=== PATIENT | female | born 1930 | race Caucasian/White ===

== ENCOUNTER 2017-10-15 08:58 | Outpatient (CLI) | payer MEDICARE, BC ==
--- NOTE | 2017-10-15 12:10 | PRG ---
DATE OF SERVICE: 10/15/2017 CHIEF COMPLAINT: Sores on the left third and fourth toes. HISTORY OF PRESENT ILLNESS: An 87-year-old female presents today stating that she has some ulcers on her left third and fourth toes. This has been present for over 8 months. She has had multiple stanislaw tment interventions for this including home health wound care and visit with another skirt panel assembler kaity flores a tenotomy of the left third toe. She states she still has some tenderness to the area and rece ntly has just been treating by placing Telfa pad between the toes. PAST MEDICAL HISTORY/PAST SURGICAL HISTORY/SOCIAL HISTORY/FAMILY HISTORY: [facility] It was reviewed and deemed up to date. REVIEW OF SYSTEMS: CONSTITUTIONAL: Denies nausea, vomiting, fevers or chills. NEUROLOGICAL: Relates normal sensation to bilateral feet. ENDOCRINOLOGIC: Denies diabetes, excess thirst or excess urination. INTEGUMENTARY: Relating sorene ss to the left third and fourth toes. CARDIOVASCULAR: Relates swelling to bilateral lower extremities which comes and goes. PHYSICAL EXAMINATION: VITAL SIGNS: Temperature 97.4, pulse 61, respirations 18, blood pressure 157/67. VASCULAR: Dorsalis pedis and posterior tibial pulses are faint, but palpable. She has varicosities to bilateral lower extremities and some +1 pitting edema to bilateral lower extremities. Capillary r efill time to the toes is immediate x10. NEUROLOGICAL: Light touch protective sensation threshold is intact with cursory exam. DERMATOLOGICAL EXAM: Evaluated the areas of stated previous ulceration. There was a small scab over the area which was removed and noted that there was fresh epithelium and no full thickness wounds we re present. No erythema, edema, or warmth present to the toes. ASSESSMENT: 1. 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 2. Venous insufficiency. PLAN: 1. I discussed with the patient her condition and treatment options. I believe at this time that th e wounds are healed and that she does not require any wound care intervention, although I would recom mend a silicone toe spacers for between her toes. We discussed where to find these and different opt ions and use. I believe this will help with the discomfort she is having in this area. Also, recomm end that she start wearing her compression stockings again for her swelling, but paying close attenti on to keep the compression off of the toes. 2. We have also referred her for vein evaluation with her plug cutter to see if there is anything t hat can be done for that. 3. She is to follow up with me should she develop any further problems or concerns.
== END 2017-10-15 08:59 | disposition home or self-care (01) ==
LOC: WCC 08:58
PROVIDERS: ATTEND Podiatrist Foot & Ankle Surgery
DX: L97.529 Non-pressure chronic ulcer of other part of left foot with unspecified severity (principal); I87.2 Venous insufficiency (chronic) (peripheral)
CPT/HCPCS: 97139; 97602; G0463; 99203

== ENCOUNTER 2017-12-24 09:48 | Outpatient (CLI) | payer MEDICARE, BC ==
--- NOTE | 2017-12-24 13:52 | PRG ---
DATE OF SERVICE: 12/24/2017 SUBJECTIVE: An 87-year-old female returns to clinic today for an ulcer on her left fourth toe, I hav e seen her previously for ulcers on her left third and fourth toes, which had healed at that time. S he says this one started back up just recently made over the last 2-3 weeks. She says she has proble ms with blistering and scabbing this area. She has tried using silicone toe spacers, but determined that she was allergic to silicone and has not sounds anything else to help reduce the pressure on the se areas. Denies nausea, vomiting, fevers or chills. OBJECTIVE: Superficial ulceration limited to breakdown of the skin of the left fourth toe medial PIP J area measures 0.2 x 0.2 cm, 100% granular wound base. This area does abut up against the third toe . ASSESSMENT: Non-pressure chronic ulceration limited to breakdown of the skin left fourth toe. PLAN: 1. We discussed keeping the wound covered with a dry sterile dressing until it heals. 2. We discussed other options for removing the pressure, she is going to start by trying an Aperture corn pad without any corn removal medication on it to take pressure off the area and keep the toe se parated. I will have her follow up in 2 weeks for reevaluation and determine if any change in treatm ent as necessary.
== END 2017-12-24 09:49 | disposition home or self-care (01) ==
LOC: WCC 09:48
PROVIDERS: ATTEND Podiatrist Foot & Ankle Surgery
DX: L97.521 Non-pressure chronic ulcer of other part of left foot limited to breakdown of skin (principal)

== ENCOUNTER 2018-01-07 09:47 | Outpatient (CLI) | payer MEDICARE, BC ==
[~2018-01-07 09:47] MED LIST: Sodium Chloride 3% (15 ML) NEB ONE
--- NOTE | 2018-01-07 12:06 | PRG ---
DATE OF SERVICE: 01/07/2018 SUBJECTIVE: An 87-year-old female, who returns today for followup of left fourth toe ulceration. Niko michele has done well since last visit. She has been using a corn aperture pad on the wound with no ot her dressing on the area. This is about the same. She says some days it is more red than others. T eulalio, it is a little bit more red, but yesterday it looked like a normal toe she says. She denies an y nausea, vomiting, fevers, or chills. PHYSICAL EXAMINATION: Ulceration to the left medial PIPJ of the left fourth toe, ulcer measures 0.2 x 0.2 cm x 0.1 cm, 100% granular wound base, toe is erythematous, but does not extend onto the foot, no ascending lymphangitis, no warmth. ASSESSMENT: Non-pressure chronic ulceration to the left fourth toe. PLAN: I am going to start with an Aquacel Ag gauze and tape dressing instead of the corn pads and se e how this responds over the next couple of weeks. The patient is to monitor for signs of infection and contact us immediately if there is worsening infection. She will follow up with me in 2 weeks.
== END 2018-01-07 09:48 | disposition home or self-care (01) ==
LOC: WCC 09:47
PROVIDERS: ATTEND Podiatrist Foot & Ankle Surgery
DX: L97.529 Non-pressure chronic ulcer of other part of left foot with unspecified severity (principal)

== ENCOUNTER 2018-01-21 10:22 | Outpatient (CLI) | payer MEDICARE, BC ==
[~2018-01-21 10:22] MED LIST changes: +Sodium Chloride 0.9% 15 ML NEB ONE; -Sodium Chloride 3% (15 ML) NEB ONE
--- NOTE | 2018-01-21 11:23 | PRG ---
DATE OF SERVICE: 01/21/2018 SUBJECTIVE: This is an 87-year-old female, who returns today for followup left fourth toe ulceration . States that home health has been changing the dressing 3 times a week with Aquacel AG, Telfa, and tape. Denies any problems since last visit. PHYSICAL EXAMINATION: Ulcer to the left fourth toe, measures 0.6 cm x 0.7 cm x 0.1 cm. There is 80% granulation tissue, 20% at the feet, new epithelium. Periwound has some slight maceration. No eryt jan, edema, or warmth. ASSESSMENT: Non-pressure chronic ulceration to the left fourth toe. PLAN: 1. Full thickness debridement of subcutaneous tissue layer removing all nonviable tissue from the wo und base down to bleeding granular wound base. The patient tolerated the procedure well. 2. We are going to switch her to Promogran dressing changes. We will continue with home health horowitz ging the dressing 3 times a week and one time a week here in the office. She will follow up with me in 1 week for this or sooner should she have any problems before that time.
== END 2018-01-21 10:23 | disposition home or self-care (01) ==
LOC: WCC 10:22
PROVIDERS: ATTEND Podiatrist Foot & Ankle Surgery
DX: L97.529 Non-pressure chronic ulcer of other part of left foot with unspecified severity (principal)
CPT/HCPCS: 11042; A4218

== ENCOUNTER 2018-01-28 11:31 | Outpatient (CLI) | payer MEDICARE, BC ==
--- NOTE | 2018-01-28 11:41 | PRG ---
DATE OF SERVICE: 01/28/2018 SUBJECTIVE: An 87-year-old female who returns today for followup of ulceration to the left fourth to e. She has been having home health change dressing 3 times a week, has had no issues with the dressi ng changes. She stated she experienced a little pain in the toe last night. Denies nausea, vomiting, fevers or chills. PHYSICAL EXAMINATION: Ulceration, left fourth toe has mostly epithelialized, the medial epithelial layer measures 0.3 cm x 0.2. There is a pinpoint area centrally located of granular tissue where the wound is still open. No periwound erythema, edema, or warmth, no drainage. Slight tenderness to li ght touch. ASSESSMENT: Non-pressure chronic ulceration to the left fourth toe, improving. PLAN: 1. Full thickness debridement of the pinpoint area of the ulceration, removing biofilm from the tiss ue layer. The patient tolerated the procedure well. 2. Going to continue with Promogran dressing changes 3 times a week. 3. The patient will follow up with me in 2 weeks.
== END 2018-01-28 11:32 | disposition home or self-care (01) ==
LOC: WCC 11:31
PROVIDERS: ATTEND Podiatrist Foot & Ankle Surgery
DX: L97.529 Non-pressure chronic ulcer of other part of left foot with unspecified severity (principal)

== ENCOUNTER 2018-01-31 11:34 | Inpatient (IN) | payer MEDICARE, BC ==
--- NOTE | 2018-01-31 13:21 | RAD ---
TWO VIEWS OF RIGHT ANKLE: DATE: 01/31/18. TIME: 12:23 p.m. HISTORY: Fall, trauma, pain. FINDINGS: The talus is dislocated posteriorly with respect to the distal tibia. Comminuted and displaced fract ures of the medial malleolus, posterior malleolus, and probably the lateral malleolus noted. Post-re duction imaging is required for further assessment. IMPRESSION: Findings suggesting a trimalleolar fracture dislocation of the right ankle. Followup post-reduction imaging is advised. POS: [facility]
[2018-01-31 13:44] LABS: Hemoglobin 12.5 g/dL (12.0-16.0); Mean Corpuscular HGB CONC 32.9 g/dL (32.0-36.0); Mean Corpuscular Hemoglobin 32.1 pg (27.0-31.0); Mean Corpuscular Volume 97.5 fl (81.0-99.0); Mean Platelet Volume 7.5 fL (7.4-10.4); Platelet Count 178 thou/uL (130-400); RBC Distribution Width 11.9 % (11.5-14.5); Red Blood Cell (RBC) Count 3.91 mill/uL (4.20-5.40)
[2018-01-31] MEDS ORDERED: Fentanyl 100 MCG/2 ML VIAL ONE (13:53)
--- NOTE | 2018-01-31 13:55 | RAD ---
PORTABLE CHEST ONE VIEW: Date: 01-26-18 Time: 1:36 p.m. History: Pre-operative evaluation. FINDINGS: The heart size is normal. The aorta is tortuous. No areas of consolidation, pneumothorax or pleural e ffusions are seen. IMPRESSION: No acute process. POS: [facility]
[2018-01-31 13:56] LABS: ALT (SGPT) 13 U/L (8-55); AST (SGOT) 16 U/L (5-34); Albumin 3.8 g/dL (3.4-4.8); Alkaline Phosphatase 91 U/L (40-150); Anion Gap 13 mmol/L (10-20); BUN (Urea Nitrogen) 46 mg/dL (9.8-20.1); Bilirubin, Total 0.7 mg/dL (0.2-1.2); Calc. Creatinine Clearance 0 mL/min (70-130); Calcium 9.6 mg/dL (7.8-10.44); Carbon Dioxide 23 mmol/L (23-31); Chloride 108 mmol/L (98-107); Estimated GFR-MDRD 28; Globulin 2.5 g/dL (2.4-3.5); Glucose 126 mg/dL (83-110); Potassium 5.2 mmol/L (3.5-5.1); Protein, Total 6.3 g/dL (6.0-8.3); Sodium 139 mmol/L (136-145)
[2018-01-31 13:58] LABS: Band 20 % (5-11); Lymphocytes 7 % (21-51); MDiff Complete? YES; Metamyelocyte 1 % (0-0); Monocytes 12 % (0-10); Neutrophil 59 % (42-75); PLT Morphology Comment Appears Adequate; RBC Morphology Normal; Vacuoles SLIGHT
[2018-01-31 14:21] LABS: Bilirubin Negative (Negative); Blood, Urine Large (Negative); Clarity TURBID (Clear); Glucose, Urine (Dipstick) Negative (Negative); Leukocyte Large (Negative); Nitrite Positive (Negative); Protein, Urine (Dipstick) 100 mg/dL (Neg-Trace); Specific Gravity, Urine 1.017 (1.002-1.036)
[2018-01-31 14:26] LABS: Bacteria/HPF 4+ HPF (None Seen); Hyaline Casts/LPF 0-3 HYALINE CAST LPF (0-3 Hyaline); Pathc Cast-AUWi Flag 0.17 (0-2.49); Squamous Epithelial None Seen HPF (0-3); Yeast-AUWi Flag 23.4 (0-25.0)
--- NOTE | 2018-01-31 14:49 | RAD ---
RIGHT ANKLE 2 VIEWS: HISTORY: Right ankle injury. Post reduction. FINDINGS: Near-complete reduction of the lateral talar dislocation. Mild eversion persists. There is 1.1 cm p osterior displacement of the posterior malleolar fracture. A 1.0 cm gap of the lateral malleolar fra cture. A 0.6 cm gap of the medial malleolar fracture. Prominent soft tissue swelling. Osseous stru ctures are demineralized. IMPRESSION: Partial reduction of the right ankle fracture dislocation. POS: [facility]
[2018-01-31] MEDS ORDERED: cefTRIAXone\\ROCEPHIN 2 GM VIAL ONE (15:01)
[2018-01-31] MEDS ORDERED: Acetaminophen/Codeine 30-300mg Tablet PO PRN (16:42)
[2018-01-31] MEDS ORDERED: Ondansetron HCl/PF 4 MG/2 ML Vial IV PRN (16:42)
[2018-01-31] MEDS ORDERED: Milk Of Magnesia 30 ML UDCUP PO PRN (16:42)
[2018-01-31] MEDS ORDERED: Fentanyl 100 MCG/2 ML VIAL SLOW IVP PRN (16:42)
[2018-01-31] MEDS ORDERED: TETANUS AND DIPHTHERIA TOX/PF 0.5 ML DISP.SYRIN IM SCH (16:45)
[2018-01-31] MEDS ORDERED: PHARMACY TO DOSE ANTIBIOTICS FS PRN (16:45)
[2018-01-31 17:04] VITALS: BMI 28.3
[2018-01-31] MEDS: traMADol HCl 50 MG TAB PO PRN (18:27)
[2018-01-31] MEDS: busPIRone HCl 5 MG TAB PO SCH (20:50)
[2018-01-31] MEDS ORDERED: Famotidine 20 MG TAB PO SCH (21:00)
--- NOTE | 2018-01-31 23:09 | HP ---
DATE OF HISTORY AND PHYSICAL: 01/31/2018 CHIEF COMPLAINT: Right ankle pain. HISTORY OF PRESENT ILLNESS: Ms. Vaz is an 87-year-old female who resides in a alf. Selma mello lost her balance and fell today. She twisted her ankle. She was using a walker. She denies falli ng hard. She did injure her ankle, however. She had deformity of the ankle and was unable to bear w eight. She was taken to the emergency department. She was found to have an ankle fracture dislocati on. She has been reduced and splinted in the emergency department today. She has been admitted to [facility]. She is currently comfortable. No other injuries. No significant pain at rest. PAST MEDICAL HISTORY: GERD, genitourinary problems including poor bladder control, history of skin c ancer. PAST SURGICAL HISTORY: Includes appendectomy, hysterectomy, tonsillectomy, and skin tag removal. PSYCHIATRIC HISTORY: Includes anxiety and depression. SOCIAL HISTORY: The patient lives in a nursing facility. She denies any tobacco, alcohol, or drug u se. ALLERGIES: CIPROFLOXACIN, PORK, SILICONE, and TOMATO. FAMILY MEDICAL HISTORY: Noncontributory. REVIEW OF SYSTEMS: Positive for ankle pain with movement, otherwise negative 10-point review of syst ems. IMAGES: X-rays of the right ankle show an initial fracture dislocation including trimalleolar ankle fracture. There are post-reduction x-rays with improved alignment and no longer a dislocated talus. PHYSICAL EXAMINATION: VITAL SIGNS: Stable. Patient is afebrile, normotensive, 98% on room air. GENERAL: She is alert, sitting upright, in no apparent distress. HEENT: Normocephalic, atraumatic. RESPIRATORY: Breathing comfortably. ABDOMEN: Soft, nontender, nondistended. CARDIOVASCULAR: Pulses palpable and regular. MUSCULOSKELETAL: The patient's right lower extremity has a splint. She has intact sensation to ligh t touch distally at the toes. She is able to flex and extend the toes. Two-second capillary refill. Splint is clean, dry, and intact. IMPRESSION: Right ankle fracture dislocation, trimalleolar. PLAN: At this point, the patient will need to go to the operating room. I will add her on for surgi can intervention tomorrow morning. We will plan for open reduction and internal fixation of her unst able ankle fracture. She will be n.p.o. at midnight. She will have appropriate DVT prophylaxis and antibiotic prophylaxis. All questions have been answered, and our plan has been reviewed with her.
[2018-02-01] MEDS: traMADol HCl 50 MG TAB PO PRN (00:38)
[2018-02-01 05:48] LABS: Hemoglobin 10.8 g/dL (12.0-16.0); Mean Corpuscular HGB CONC 33.1 g/dL (32.0-36.0); Mean Corpuscular Hemoglobin 32.2 pg (27.0-31.0); Mean Corpuscular Volume 97.3 fl (81.0-99.0); Platelet Count 170 thou/uL (130-400); RBC Distribution Width 11.9 % (11.5-14.5); Red Blood Cell (RBC) Count 3.35 mill/uL (4.20-5.40); White Blood Cell (WBC) Count 9.7 thou/uL (4.8-10.8)
[2018-02-01 06:00] LABS: Anion Gap 12 mmol/L (10-20); BUN (Urea Nitrogen) 44 mg/dL (9.8-20.1); Calc. Creatinine Clearance 34 mL/min (70-130); Calcium 8.9 mg/dL (7.8-10.44); Carbon Dioxide 22 mmol/L (23-31); Chloride 110 mmol/L (98-107); Estimated GFR-MDRD 32; Glucose 100 mg/dL (83-110); Potassium 4.9 mmol/L (3.5-5.1); Sodium 139 mmol/L (136-145)
[2018-02-01] MEDS ORDERED: Propranolol HCl LA 60 MG CAP PO SCH (07:15)
[2018-02-01] MEDS: predniSONE 5 MG TAB PO SCH (09:19)
[2018-02-01] MEDS: azaTHIOprine 50 MG TAB PO SCH (09:19)
[2018-02-01] MEDS: busPIRone HCl 5 MG TAB PO SCH ×3 (09:19→20:52)
[2018-02-01] MEDS: Loratadine 10 MG TAB PO SCH (09:22)
[2018-02-01] MEDS: Lisinopril 5 MG TAB PO SCH (09:22)
[2018-02-01] MEDS: Propranolol HCl LA 60 MG CAP PO SCH (09:22)
[2018-02-01] MEDS ORDERED: Fentanyl 100 MCG/2 ML VIAL ONE ×2 (11:31→12:15)
[2018-02-01] MEDS ORDERED: Midazolam HCl 2 mg/2 ml Vial ONE ×2 (11:32→12:15)
[2018-02-01] MEDS ORDERED: CEFAZOLIN/Water 2 GM/20 ML SYRINGE ONE (11:48)
[2018-02-01] MEDS ORDERED: CEFAZOLIN/Water 2 GM/20 ML SYRINGE SLOW IVP SCH (12:00)
[2018-02-01] MEDS ORDERED: Ondansetron HCl/PF 4 MG/2 ML Vial IVP PRN ×2 (12:18→13:46)
[2018-02-01] MEDS ORDERED: Zolpidem Tartrate 5 MG TAB PO PRN (12:18)
[2018-02-01] MEDS ORDERED: traMADol HCl 50 MG TAB PO PRN ×2 (12:18)
[2018-02-01] MEDS ORDERED: Promethazine HCl 25 MG/ML VIAL IM PRN ×2 (12:18→13:46)
[2018-02-01] MEDS ORDERED: Acetaminophen 500 MG TAB PO PRN (12:21)
[2018-02-01] MEDS ORDERED: PROPOFOL 200 MG/20 ML VIAL ONE (12:46)
[2018-02-01] MEDS ORDERED: Ondansetron HCl/PF 4 MG/2 ML Vial ONE (12:46)
[2018-02-01] MEDS ORDERED: Lidocaine 1% PF 5 ML VIAL ONE (12:46)
[2018-02-01] MEDS ORDERED: Ropivacaine 0.5% HCl/PF (150 MG/30 ML VIAL) ONE (13:03)
[2018-02-01] MEDS ORDERED: Bupivacaine 0.25% HCL 30 ML VIAL ONE (13:03)
[2018-02-01] MEDS ORDERED: Bupivacaine HCl 0.5%/Epinephrine 1:200,000/PF 30 ml Vial ONE (13:03)
[2018-02-01] MEDS ORDERED: Promethazine HCl 25 MG/ML VIAL SLOW IVP PRN (13:46)
--- NOTE | 2018-02-01 13:48 | OP ---
DATE OF PROCEDURE: 02/01/2018 OPERATION: Open reduction internal fixation of right ankle fracture, trimalleolar. PREOPERATIVE DIAGNOSIS: Right displaced trimalleolar ankle fracture. POSTOPERATIVE DIAGNOSIS: Right displaced trimalleolar ankle fracture. COMPLICATIONS: None. ESTIMATED BLOOD LOSS: Minimal. SURGEON: Elliott Young M.D. ANESTHESIA: General. IMPLANTS: Synthes 1/3 tubular locking plate with 4.0 mm partially threaded screws. INDICATIONS: Ms. Vaz is an elderly female who fell. She fractured her right ankle. She had a dislocated ankle. She was indicated for open reduction internal fixation to restore stability of the ankle and anatomic alignment. Goal of surgery is to promote healing and prevent complications of he r injury. Risks are possible, including wound complication, infection, nonunion, malunion and others . DESCRIPTION OF PROCEDURE: Ms. Vaz was identified in the preoperative holding area. Her correct extremity was marked. She was carried to the operating room. She was positioned supine. General a nesthesia was induced. A multidisciplinary timeout was performed. She was given intravenous antibio tics. We began the procedure with a lateral incision over the fibula. We dissected down through the subcut aneous tissues to the fibula level. The fracture was cleared and irrigated. We performed an anatomi c reduction with a reduction clamp. Next, a 1/3 tubular plate was placed. We placed 5 screws along the fibula checking our hardware placement with intraoperative x-ray. At this point, we made a small incision over the medial malleolus. We dissected down to the fracture level and cleared the bony ed ges. We irrigated the joint. We then reduced the medial malleolus fracture and held this with a K-w lois. We then placed two 4.0 mm partially threaded cancellous screws. We took final images including a stress view. There were no complications. We thoroughly irrigated with copious lavage and closed with a 2-0 Vicryl suture and 3-0 nylon. A sterile dressing and a splint was placed.
[2018-02-01] MEDS: CEFAZOLIN/Water 2 GM/20 ML SYRINGE SLOW IVP SCH (20:52)
[2018-02-02] MEDS ORDERED: diphenhydrAMINE 50 MG/ML VIAL IVP PRN (03:45)
[2018-02-02] MEDS ORDERED: diphenhydrAMINE 25 MG CAP PO PRN (03:45)
[2018-02-02] MEDS: CEFAZOLIN/Water 2 GM/20 ML SYRINGE SLOW IVP SCH (03:50)
[2018-02-02] MEDS: Bupivacaine 0.5% 50 ML in Sodium Chloride 0.9% 50 ML NERVE BLCK SCH ×2 (07:13→23:59)
[2018-02-02] MEDS: predniSONE 5 MG TAB PO SCH (09:02)
[2018-02-02] MEDS: azaTHIOprine 50 MG TAB PO SCH (09:02)
[2018-02-02] MEDS: busPIRone HCl 5 MG TAB PO SCH ×3 (09:02→21:05)
[2018-02-02] MEDS: Loratadine 10 MG TAB PO SCH (09:02)
[2018-02-02] MEDS: Lisinopril 5 MG TAB PO SCH (09:02)
[2018-02-02] MEDS: Propranolol HCl LA 60 MG CAP PO SCH (09:04)
[2018-02-03] MEDS: busPIRone HCl 5 MG TAB PO SCH (09:22)
[2018-02-03] MEDS: Lisinopril 5 MG TAB PO SCH (09:22)
[2018-02-03] MEDS: Loratadine 10 MG TAB PO SCH (09:22)
[2018-02-03] MEDS: predniSONE 5 MG TAB PO SCH (09:22)
[2018-02-03] MEDS: Propranolol HCl LA 60 MG CAP PO SCH (09:23)
[2018-02-03] MEDS: azaTHIOprine 50 MG TAB PO SCH (09:23)
[2018-02-03 11:46] VITALS: BP 143/79; TEMP 98.4
--- NOTE | 2018-02-03 12:09 | RAD ---
THREE INTRAOPERATIVE FLUOROSCOPIC IMAGES RIGHT ANKLE: 02/01/2018 HISTORY: This is from the taken list. ORIF right ankle. COMPARISON: 01/31/2018 FINDINGS: This exam was performed on 02/01/2018 but is not being submitted until 02/03/2018. There is a lateral plate and screws transfixing the distal fibula with two screws transfixing the med ial malleolus. There is improvement in alignment of the fracture fragments and interval reduction in the dislocation at the tibiotalar joint, compared to prior exam. Subcutaneous emphysema is present, related to recent post surgical change. IMPRESSION: Internal fixation of the distal fibula and medial malleolus with interval reduction of the previously noted dislocation at the ankle. POS: [facility]
== END 2018-02-03 14:00 | DRG 494 ==
LOC: ERS 11:34 → SURG A 15:37
PROVIDERS: ADMIT Orthopaedic Surgery; ATTEND Orthopaedic Surgery
PROC: 0QSG04Z Reposition Right Tibia with Internal Fixation Device, Open Approach (ICD-10-PCS; principal; 2018-02-01)
PROC: 0QSJ04Z Reposition Right Fibula with Internal Fixation Device, Open Approach (ICD-10-PCS; 2018-02-01)
PROC: 0QSG04Z Reposition Right Tibia with Internal Fixation Device, Open Approach (ICD-10-PCS; 2018-02-01)
DX: S82.851A Displaced trimalleolar fracture of right lower leg, initial encounter for closed fracture (principal); K21.9 Gastro-esophageal reflux disease without esophagitis; F41.9 Anxiety disorder, unspecified; F32.9 Major depressive disorder, single episode, unspecified; X50.1XXA Overexertion from prolonged static or awkward postures, initial encounter; Y92.009 Unspecified place in unspecified non-institutional (private) residence as the place of occurrence of the external cause; Z88.1 Allergy status to other antibiotic agents; Z90.49 Acquired absence of other specified parts of digestive tract; Z90.710 Acquired absence of both cervix and uterus
CPT/HCPCS: 11042; 27818; 36415; 51701; 71045; 76001; 80048; 80053; 81003; 81015; 85025; 85027; 87077; 87086; 87186; 93005; 96361; 96365; 96375; A4353; C1713; G8978-GP-CM; G8979-GP-CK; G8987-GO-CM; G8988-GO-CK; J0670; J0696; J1200; J2001; J2250; J2405; J2704; J2795; J3010; J3490; J7050; J7500; S0020

== ENCOUNTER 2018-02-21 16:23 | Inpatient (IN) | payer MEDICARE, BC ==
[2018-02-21 17:11] LABS: #Eosinphils 0.3 thou/uL (0.0-0.7); #Lymphocytes 1.3 thou/uL (1.20-3.40); #Monocytes 1.1 thou/uL (0.11-0.59); #Neutrophils 5.3 thou/uL (1.40-6.50); %Basophils 0.3 % (0.0-1.0); %Eosinophils 4.3 % (0.0-10.0); %Lymphocytes 16.1 % (21.0-51.0); %Monocytes 13.6 % (0.0-10.0); %Neutrophils 65.8 % (42.0-75.0); Hemoglobin 12.1 g/dL (12.0-16.0); Mean Corpuscular HGB CONC 33.3 g/dL (32.0-36.0); Mean Corpuscular Volume 96.3 fL (78.0-98.0); Mean Platelet Volume 6.2 fL (7.4-10.4); Platelet Count 358 thou/uL (130-400); RBC Distribution Width 12.7 % (11.5-14.5); Red Blood Cell (RBC) Count 3.77 mill/uL (4.20-5.40)
[2018-02-21 17:25] LABS: INR-International Normal Ratio 1.2; PTT 32.1 SEC (22.9-36.1); Prothrombin Time 15.5 SEC (12.0-14.7)
--- NOTE | 2018-02-21 17:25 | RAD ---
AP CHEST: Indication: History of rectal bleeding. Comparison: 01-31-18 FINDINGS: The cardiomegaly is stable. There are low lung volumes. No pleural effusions or pneumothorax. No acut e osseous abnormality is evident. IMPRESSION: No acute abnormality. POS: [facility]
[2018-02-21 17:35] LABS: ALT (SGPT) 10 U/L (8-55); AST (SGOT) 13 U/L (5-34); Albumin 3.7 g/dL (3.4-4.8); Alkaline Phosphatase 130 U/L (40-150); Anion Gap 15 mmol/L (10-20); BUN (Urea Nitrogen) 54 mg/dL (9.8-20.1); Bilirubin, Total 0.5 mg/dL (0.2-1.2); CK (CPK) 47 U/L (29-168); Calc. Creatinine Clearance 0 mL/min (70-130); Calcium 9.8 mg/dL (7.8-10.44); Carbon Dioxide 21 mmol/L (23-31); Chloride 101 mmol/L (98-107); Estimated GFR-MDRD 17; Globulin 3.1 g/dL (2.4-3.5); Glucose 106 mg/dL (83-110); Lipase 34 U/L (8-78); Potassium 5.7 mmol/L (3.5-5.1); Protein, Total 6.8 g/dL (6.0-8.3); Sodium 131 mmol/L (136-145)
[2018-02-21 17:40] LABS: CKMB 1.8 ng/mL (0-6.6); Troponin I Less than 0.010 ng/mL (< 0.028)
[2018-02-21 18:23] LABS: Bilirubin Large (Negative); Blood, Urine Large (Negative); Clarity CLOUDY (Clear); Glucose, Urine (Dipstick) Negative (Negative); Leukocyte Moderate (Negative); Nitrite Positive (Negative); Protein, Urine (Dipstick) 300 mg/dL (Neg-Trace); Specific Gravity, Urine 1.016 (1.002-1.036); pH, Urine 5.5 (5.0-9.0)
[2018-02-21 18:27] LABS: Bacteria/HPF 1+ HPF (None Seen); Hyaline Casts/LPF 0-3 HYALINE CAST LPF (0-3 Hyaline); RBC/HPF GREATER THAN 50-TNTC HPF (0-3); Squamous Epithelial None Seen HPF (0-3); WBC/HPF None Seen HPF (0-3)
--- NOTE | 2018-02-21 19:30 | CT ---
CT OF ABDOMEN AND PELVIS: Date: 02-21-18 Comparison: None. History: Rectal bleeding. Technique: Serial axial CT imaging at 5 mm intervals from lung bases through the pubic symphysis with out contrast. Coronal reformatted imaging is obtained. FINDINGS: The lack of contrast media limits assessment of the viscera bowel vascular structures and for lymphad enopathy. The imaged lung bases demonstrate no acute findings. No free intraperitoneal air is noted. Liver, gal lbladder, spleen, pancreas, adrenal glands, and kidneys demonstrate no acute findings. There is high density material layering posteriorly within the urinary bladder suggesting debris and/ or blood. Correlation with urinalysis is recommended. There is a distal colonic suture line seen on i mage 73. There are a few scattered diverticula within the sigmoid colon. There is no evidence for div erticulitis, focal bowel inflammatory change, or bowel obstruction. Round low density area in right hemipelvis on axial image 58 noted. This measures up to 3 cm and may signify a right cystic ovarian lesion. Non emergent follow up pelvic ultrasound is recommended. Review of the osseous structures demonstrates multilevel lower lumbar spine degenerative and post-ope rative changes. The bones are demineralized. There is severe multilevel lumbar spine disc space narro wing and degenerative endplate change. There are age indeterminate anterior wedge compression fractur es of L1 and L2. IMPRESSION: 1. No evidence for bowel obstruction or free intraperitoneal air. 2. Hyperdense material layering posteriorly within the urinary bladder as above. 3. Round 3 cm low density area in the right hemipelvis for which nonemergent follow up pelvic ultraso und is advised. 4. Degenerative change within the spine. Age indeterminate anterior wedge compression fractures of L1 and L2 noted. POS: [facility]
[2018-02-21] MEDS ORDERED: Sodium Chloride 0.9% 1,000 ML IV SCH (20:45)
[2018-02-21] MEDS ORDERED: Famotidine/PF 20 mg/2ml Vial SLOW IVP SCH (21:00)
[2018-02-21 21:30] LABS: Band 11 % (5-11); Eosinophils 5 % (0-10); Lymphocytes 18 % (21-51); MDiff Complete? YES; Mean Corpuscular Hemoglobin 32.3 pg (27.0-31.0); Mean Platelet Volume 6.3 fL (7.4-10.4); Metamyelocyte 2 % (0-0); Monocytes 10 % (0-10); Neutrophil 54 % (42-75); Platelet Count 304 thou/uL (130-400); RBC Distribution Width 12.7 % (11.5-14.5); White Blood Cell (WBC) Count 7.4 thou/uL (4.8-10.8)
[2018-02-21] MEDS: Sodium Chloride 0.9% 1,000 ML IV SCH (21:51)
[2018-02-22 00:50] VITALS: BMI 26.1
[2018-02-22 05:12] LABS: Anion Gap 11 mmol/L (10-20); BUN (Urea Nitrogen) 41 mg/dL (9.8-20.1); Calc. Creatinine Clearance 27 mL/min (70-130); Calcium 8.9 mg/dL (7.8-10.44); Carbon Dioxide 23 mmol/L (23-31); Chloride 107 mmol/L (98-107); Estimated GFR-MDRD 26; Glucose 98 mg/dL (83-110); Sodium 136 mmol/L (136-145)
[2018-02-22 05:58] LABS: Band 22 % (5-11); Eosinophils 7 % (0-10); Hemoglobin 8.7 g/dL (12.0-16.0); Lymphocytes 21 % (21-51); MDiff Complete? YES; Mean Corpuscular HGB CONC 33.6 g/dL (32.0-36.0); Mean Corpuscular Hemoglobin 32.1 pg (27.0-31.0); Mean Corpuscular Volume 95.6 fL (78.0-98.0); Mean Platelet Volume 6.3 fL (7.4-10.4); Metamyelocyte 1 % (0-0); Monocytes 9 % (0-10); Myelocyte 1 % (0-0); Neutrophil 39 % (42-75); Platelet Count 290 thou/uL (130-400); RBC Distribution Width 12.7 % (11.5-14.5); Red Blood Cell (RBC) Count 2.71 mill/uL (4.20-5.40); White Blood Cell (WBC) Count 6.3 thou/uL (4.8-10.8)
[2018-02-22] MEDS: Sodium Chloride 0.9% 1,000 ML IV SCH ×2 (08:18→18:32)
[2018-02-22 09:17] LABS: Hemoglobin 9.2 g/dL (12.0-16.0)
[2018-02-22 12:07] LABS: Hemoglobin 9.4 g/dL (12.0-16.0)
[2018-02-22 12:54] LABS: Hemoglobin 9.1 g/dL (12.0-16.0); Mean Corpuscular HGB CONC 33.5 g/dL (32.0-36.0); Mean Corpuscular Volume 95.5 fL (78.0-98.0); Mean Platelet Volume 6.3 fL (7.4-10.4); Platelet Count 327 thou/uL (130-400); RBC Distribution Width 12.5 % (11.5-14.5); Red Blood Cell (RBC) Count 2.84 mill/uL (4.20-5.40)
[2018-02-22 13:10] LABS: Band 18 % (5-11); Eosinophils 7 % (0-10); Lymphocytes 18 % (21-51); MDiff Complete? YES; Metamyelocyte 1 % (0-0); Monocytes 12 % (0-10); Myelocyte 3 % (0-0); Neutrophil 40 % (42-75); PLT Morphology Comment Appears Adequate; Polychromasia SLIGHT = 2-3 cells (100X) (0-2/hpf); Reactive Lymphocytes 1 % (0-10)
--- NOTE | 2018-02-22 13:46 | CON ---
DATE OF CONSULTATION: 02/22/2018 INPATIENT CONSULTATION HISTORY OF PRESENT ILLNESS: Ms. Vaz is a pleasant 87-year-old female who was recently discharged as she fell and sustained a right ankle fracture, underwent ORIF for right ankle fracture and discharged 02/03/2018 uneventfully. Surgery was performed by Dr. Young. She relates that over the last 2 months, she is on and off pelvic bleeding, has told her providers at her assisted living facility; however, was told to observe. She presented to the emergency room with her family friend with intermittent abdominal pain and presumed rectal bleed. A CT of the abdomen and pelvis was obtained due to acute renal insufficiency demonstrating findings consistent with hyperdensity hematuria in the bladder consistent with large bladder clot. There is no evidence of hydronephrosis or significant lymphadenopathy. Per nursing staff, patient has been voiding spontaneously gross hematuria with clots passing per her urethra. She denies history of tobacco abuse or incontinence per se. She is somewhat of a poor historian; however, much of her history is obtained per chart. PAST MEDICAL HISTORY: Includes, chronic back pain, recent right ankle fracture , autoimmune hepatitis, depression, reflux, melanoma, anxiety, nervousness, arthritis, chronic pain, osteoporosis. PAST SURGICAL HISTORY: Lumbar surgery, hysterectomy in 1979 with bladder suspension, appendectomy in 1957, cataract surgery in 2001 and 2003, tonsillectomy in 1939, stapled hemorrhoidectomy 04/2014, right ankle fracture ORIF in 01/2018. 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 FAMILY HISTORY: Negative for coronary artery disease. REVIEW OF SYSTEMS: Ten point review of systems as above, otherwise noncontributory. PHYSICAL EXAMINATION: VITAL SIGNS: She presented with unremarkable vital signs, afebrile, no evidence of hypotension or tachycardia. Currently, her vital signs are 97.7, 65 , 20, 97, 119/73. I's and O's, on diaper. Strict I's and O's not monitored. GENERAL: The patient has a friend at bedside, appears to be in no acute distress, answers questions appropriately. HEENT: Grossly unremarkable. HEART: Regular rate. LUNGS: Clear. ABDOMEN: Soft, protuberant. Small umbilical hernia. Mild tenderness of the suprapubic region; however, no rigidity, no rebound. EXTREMITIES: Demonstrate no calf tenderness. There is minimal ecchymosis along the ankles from recent right ORIF. No calf tenderness is appreciated. GENITOURINARY: Exam demonstrates severe atrophic vaginitis with decreased vaginal introitus. It is only one to two finger digit caliber. She did require nurse assist for me to place an indwelling Walton catheter. I could not visualize the urethral meatus; however, by palpation, I was able to pass a 22- Egyptian 30 mL urethral Walton catheter without difficulty. Upon passing the Walton catheter, approximately 300-400 mL of urine obtained demonstrating dark venous hematuria. I did spend significant amount of time at bedside irrigating the bladder with evacuation of clots. It is felt that her clot was removed successfully. CBI at moderate high rate demonstrates romero red urine draining uneventfully. Approximately 200 mL of clot evacuated PERTINENT LABORATORY DATA AND IMAGING DATA: She presented with sodium of 131, currently is 136, BUN 54, 2.7 on arrival, this morning it is 41, 1.87. Her baseline creatinine back in 2014 is 0.6, 05/2017 creatinine 1.6, INR is 1.2, PTT 32. White count is 8, presenting hemoglobin is 12, platelet 358. Her following hemoglobin has decreased to 10, 8.7 and has been stable at 9.4, 9.2 over the last 24 hours. Urinalysis demonstrates red urine, 300 protein, large blood, positive nitrites , moderate leukocytes, greater than 50 RBCs, no WBCs, no epithelials, 1+ bacteria. Urine culture is pending. She does have a recent urine culture from 01/31/2018 demonstrating E. coli, pansensitive except to ampicillin. CT of the abdomen and pelvis stone protocol dated 02/21/2018. High density material layering posteriorly in urinary bladder suggesting debris , blood clot. No evidence of diverticulitis. A 3-cm right ovarian cystic lesion. Follow up pelvic ultrasound advised. No evidence of hydronephrosis or renal mass. CT 09/2014 demonstrates right ovarian 2.6 cm renal cyst. Bladder is grossly unremarkable. No evidence of hydronephrosis. IMPRESSION/PLAN: Ms. Vaz is an 87-year-old female with history of prostate who presents with gross hematuria with clot retention. Prior urine culture does demonstrate E. coli. Recent UA suspicious for UTI component as well. She has significant amount of blood clots, which was evacuated at bedside and continues to have gross hematuria. Although hemorrhagic cystitis is the differential diagnosis, I cannot completely exclude occult bladder lesion /tumor resulting in the degree of hematuria that she presents with. As such, I do recommend cystoscopy, transurethral resection of bladder tumor if indicated, fulguration of bleed. She desires to proceed. Risks and complications including PE, DVT, perioperative morbidity and mortality, bladder perforation, injury to adjacent organs was reviewed with them in detail. Informed consent obtained with the son who is the power of business attorney. The patient agrees to proceed. N.p.o. after midnight. We will initiate Rocephin empirically, she is typed and crossed for 4 units. N.p.o. after midnight. MTDD
--- NOTE | 2018-02-22 14:39 | RAD ---
FRONTAL VIEW CHEST: Comparison: 02-21-18 Indication: Pre-operative evaluation. FINDINGS: The cardiomediastinal silhouette is stable. There is no lobar consolidation or effusion. No discrete pneumothorax. Chest is otherwise similar. IMPRESSION: No focal consolidation. POS: [facility]
[2018-02-22] MEDS: Hyoscyamine Sulfate SL 0.125 mg Tablet SL SCH ×2 (15:29→20:10)
[2018-02-22] MEDS ORDERED: traMADol HCl 50 MG TAB PO PRN (15:29)
[2018-02-22] MEDS: cefTRIAXone\\ROCEPHIN 2 GM, Admixture Fee 1 EACH in Sodium Chloride 0.9% 100 ML IVPB SCH (15:30)
[2018-02-22 15:41] LABS: Hemoglobin 8.3 g/dL (12.0-16.0)
--- NOTE | 2018-02-22 18:24 | PDOC.PN ---
- Subjective Encounter Start Date: 02/22/18 Encounter Start Time: 11:15 Subjective: pt up in bed complains of lower abdomen pain - Objective Vital Signs & Weight: Vital Signs (12 hours) Temp Pulse Resp BP Pulse Ox 02/22/18 16:48 97.7 F 70 18 115/73 90 L Result Diagrams: 02/22/18 15:25 02/22/18 04:23 Phys Exam - Physical Examination pt appears pale Neck: no nodes, no JVD, supple, full ROM Respiratory: no wheezing, no rales, no rhonchi, wheezing present, clear to auscultation bilateral Cardiovascular: RRR, no significant murmur, no rub, gallop, irregular Gastrointestinal: soft, positive bowel sounds mild tenderness on palpation of lower abdomen area right ankle incision intact, she has a small opening to her left toe Dx/Plan (1) Hematuria Code(s): R31.9 - HEMATURIA, UNSPECIFIED Status: Acute (2) Abdominal pain Code(s): R10.9 - UNSPECIFIED ABDOMINAL PAIN Status: Acute (3) Acute blood loss anemia Code(s): D62 - ACUTE POSTHEMORRHAGIC ANEMIA Status: Acute (4) Autoimmune hepatitis Code(s): K75.4 - AUTOIMMUNE HEPATITIS Status: Acute (5) UTI (urinary tract infection) Status: Acute - Plan pt having significant blood clots after inserting the rodriguez -: she does not have rectal bleeding. Was present in the room when -: she had a bowel movement. she is on abx for uti. urology has is at bedside -: pt medically optimized for intermediate risk surgery * . Review of Systems - Review of Systems ENT: negative: Ear Pain, Ear Discharge, Nose Pain, Nose Discharge, Nose Congestion, Mouth Pain, Mouth Swelling, Throat Pain, Throat Swelling, Other Respiratory: negative: Cough, Dry, Shortness of Breath, Hemoptysis, SOB with Excertion, Pleuritic Pain, Sputum, Wheezing Cardiovascular: negative: chest pain, palpitations, orthopnea, paroxysmal nocturnal dyspnea, edema, light headedness, other Gastrointestinal: negative: Nausea, Vomiting, Abdominal Pain, Diarrhea, Constipation, Melena, Hematochezia, Other - Medications/Allergies Allergies/Adverse Reactions: Allergies Allergy/AdvReac Type Severity Reaction Status Date / Time ciprofloxacin HCl Allergy Unknown Verified 04/13/14 16:25 [From Cipro] Pork/Porcine Containing Allergy Verified 04/13/14 16:26 Products tomato [Tomato] Allergy Verified 04/13/14 16:26 SILICONE Allergy Mild Uncoded 03/29/14 11:55 Medications: Current Medications Acetaminophen (Tylenol) 650 mg PO Q4H PRN PRN Reason: Headache/Fever or Pain Buspirone HCl (Buspar) 15 mg PO TID [facility] Cholecalciferol (Vitamin D3) 5,000 units PO DAILY [facility] Docusate Sodium (Colace) 100 mg PO DAILY [facility] Famotidine (Pepcid) 20 mg SLOW IVP Q24HR [facility] Last Admin: 02/21/18 21:51 Dose: 20 mg Gabapentin (Neurontin) 300 mg PO BID [facility] Hyoscyamine Sulfate (Levsin Sl) 0.25 mg SL Q6H [facility] Last Admin: 02/22/18 15:29 Dose: 0.25 mg Sodium Chloride (Normal Saline 0.9%) 1,000 mls @ 100 mls/hr IV .Q10H [facility] Last Admin: 02/22/18 08:18 Dose: 1,000 mls Ceftriaxone Sodium 2 gm/Miscellaneous Medication 1 each/ Sodium Chloride 100 mls @ 200 mls/hr IVPB Q24HR [facility] Last Admin: 02/22/18 15:30 Dose: 100 mls Melatonin (Melatonin) 4.5 mg PO HS [facility] Morphine Sulfate (Morphine) 2 mg SLOW IVP Q4H PRN PRN Reason: Pain Non-Formulary Medication (Ranitidine Hcl [Ranitidine Hcl]) 150 mg PO HS [facility] Sodium Chloride (Flush - Normal Saline) 10 ml IVF PRN PRN PRN Reason: Saline Flush Tramadol HCl (Ultram) 50 mg PO Q6H PRN PRN Reason: Pain
[2018-02-22] MEDS: Melatonin 3 MG TAB PO SCH (20:10)
[2018-02-22] MEDS: busPIRone HCl 10 MG TAB PO SCH (20:11)
[2018-02-22] MEDS: Gabapentin 300 MG CAP PO SCH (20:11)
[2018-02-22] MEDS: Famotidine 20 MG TAB PO SCH (20:11)
[2018-02-22] MEDS: Acetaminophen 325 MG TAB PO PRN (21:47)
[2018-02-22 22:09] LABS: Band 9 % (5-11); Eosinophils 7 % (0-10); Hemoglobin 8.3 g/dL (12.0-16.0); Lymphocytes 27 % (21-51); MDiff Complete? YES; Mean Corpuscular Hemoglobin 32.5 pg (27.0-31.0); Mean Corpuscular Volume 98.4 fL (78.0-98.0); Mean Platelet Volume 6.3 fL (7.4-10.4); Metamyelocyte 1 % (0-0); Monocytes 10 % (0-10); Neutrophil 45 % (42-75); Platelet Count 267 thou/uL (130-400); RBC Distribution Width 12.7 % (11.5-14.5); Red Blood Cell (RBC) Count 2.55 mill/uL (4.20-5.40)
[2018-02-23] MEDS: Hyoscyamine Sulfate SL 0.125 mg Tablet SL SCH ×4 (02:21→21:48)
[2018-02-23] MEDS: Sodium Chloride 0.9% 1,000 ML IV SCH ×3 (04:22→23:57)
[2018-02-23 04:42] LABS: Hemoglobin 7.8 g/dL (12.0-16.0)
[2018-02-23 04:58] LABS: Anion Gap 11 mmol/L (10-20); BUN (Urea Nitrogen) 26 mg/dL (9.8-20.1); Calc. Creatinine Clearance 34 mL/min (70-130); Calcium 8.9 mg/dL (7.8-10.44); Carbon Dioxide 24 mmol/L (23-31); Chloride 108 mmol/L (98-107); Estimated GFR-MDRD 35; Glucose 85 mg/dL (83-110); Potassium 5.1 mmol/L (3.5-5.1); Sodium 138 mmol/L (136-145)
[2018-02-23] MEDS ORDERED: Furosemide 20 MG/2 ML VIAL SLOW IVP SCH (07:30)
[2018-02-23] MEDS ORDERED: Nitroglycerin 0.4 MG TAB (25 Tab Bottle) ONE (08:09)
[2018-02-23] MEDS: busPIRone HCl 10 MG TAB PO SCH ×3 (09:31→20:27)
[2018-02-23 09:45] LABS: Hemoglobin 8.1 g/dL (12.0-16.0)
[2018-02-23] MEDS ORDERED: Fentanyl 100 MCG/2 ML VIAL ONE (10:57)
[2018-02-23] MEDS ORDERED: cefTRIAXone\\ROCEPHIN 2 GM, Admixture Fee 1 EACH in Sodium Chloride 0.9% 100 ML IVPB SCH ×2 (11:15)
[2018-02-23] MEDS ORDERED: Iothalamate Meglumine 60% 50 ML VIAL FS ONE ×2 (11:24→12:04)
[2018-02-23 12:59] LABS: #Basophils 0.1 thou/uL (0.0-0.2); #Eosinphils 0.1 thou/uL (0.0-0.7); #Lymphocytes 1.1 thou/uL (1.20-3.40); %Basophils 0.5 % (0.0-1.0); %Eosinophils 0.8 % (0.0-10.0); %Lymphocytes 8.8 % (21.0-51.0); %Monocytes 8.2 % (0.0-10.0); %Neutrophils 81.7 % (42.0-75.0); Hemoglobin 10.4 g/dL (12.0-16.0); Mean Corpuscular HGB CONC 32.4 g/dL (32.0-36.0); Mean Corpuscular Hemoglobin 31.2 pg (27.0-31.0); Mean Corpuscular Volume 96.2 fL (78.0-98.0); Mean Platelet Volume 6.2 fL (7.4-10.4); Platelet Count 276 thou/uL (130-400); RBC Distribution Width 13.5 % (11.5-14.5); Red Blood Cell (RBC) Count 3.32 mill/uL (4.20-5.40); White Blood Cell (WBC) Count 12.3 thou/uL (4.8-10.8)
[2018-02-23] MEDS ORDERED: Piperacillin/Tazobactam 3.375 GM in Sodium Chloride 0.9% 100 ML IVPB SCH (13:00)
--- NOTE | 2018-02-23 13:26 | OP ---
DATE OF PROCEDURE: 02/23/2018 PREOPERATIVE DIAGNOSES: 1. An 87-year-old female with gross hematuria, history of clot retention. 2. Recent urine culture positive for E. coli. 3. History of previous urine culture positive for E. coli last month. 4. History of gross hematuria for the last 2-3 months per patient, however, history unclear. POSTOPERATIVE DIAGNOSES: 1. An 87-year-old female with gross hematuria, history of clot retention. 2. Recent urine culture positive for E. coli. 3. History of previous urine culture positive for E. coli last month. 4. History of gross hematuria for the last 2-3 months per patient, however, history unclear. PROCEDURES: Cystoscopy, evacuation of clots/debris, cystogram, bilateral retrograde, bilateral 6 x 28 double-J ureteral stent, with right distal ureteral stent with distal tail in situ, bladder wash, cytology, a Walton catheter replacement. SURGEON: Marely Vogel D.O. ANESTHESIA: General. COMPLICATIONS: None apparent. SPECIMENS: 1. Bladder wash for cytology. 2. Left ureteral debris extruded sent for permanent. INTRAOPERATIVE FINDINGS: 1. Severe vaginal atrophy. 2. Bladder mucosa consistent with cystitis changes. 3. No evidence of intraluminal papillary tumor. 4. Bilateral retrograde demonstrating delayed excretion and hydronephrosis, right greater than left, tortuous ureter proximally right greater than left. 5. Upon retrograde stent placement, moderate amount of debris consistent with a urinary tract infection. 6. No gross evidence of hematuria component from the ureters. 7. At the level of the bladder dome, small mucosal defect(likely due to manual clot evacuation perform with indwelling Walton previously at bedside), cystogram negative for extravasation. INDICATIONS FOR THE PROCEDURE AND HISTORY: Ms. Carey Vaz is an 87-year- old female who was recently admitted for right ankle fracture. She lives in assisted living in [place]. She has had intermittent gross hematuria for the last 2-3 months per history, she states that she had told her providers; however , this was not addressed appropriately. She was admitted as there was concern regarding blood per rectum. Upon further exam, she was found to have hematuria extruding with clot debris exiting her urethral region. Upon physical exam, she had gross clot coming out of her introitus from the urethral meatus. I did spend quite amount of time with the patient on the floor, evacuating moderate amount of old venous clots. She presents today for cystoscopy to rule out occult pathology resulting in significant hematuria. DESCRIPTION OF THE PROCEDURE: After an informed consent is signed, the patient is taken to the operating room, placed in a dorsal lithotomy position with the genital area prepped and draped in the usual surgical sterile fashion. Left SCDs was placed as she has a recent right ankle fracture. Appropriate antibiotics were provided based on sensitivity. General anesthesia was administered and we performed cystoscopy. She has severe vaginal atrophy, the vaginal introitus is significantly smaller. The ureteral meatus is difficult to identify with visual inspection, however, able to pass the cystoscope finger guided assistance with ease. Inspecting of the bladder mucosa demonstrated diffuse hemorrhagic changes consistent with cystitis; however, there is no gross evidence of bladder tumor that was concerning or stones. No active bleeding is appreciated. A small clot debris was evacuated not of concern. The ureteral orifices were identified bilaterally. The right UO was somewhat patulous. The left UO was normal caliber. I did see some faint urine coming from the left UO. I did not see any obvious efflux from the right kidney. I did further staged her bladder while waiting for efflux of urine on the right side. There was a small mucosal defect at the dome of the bladder. The muscle fibers appeared to be intact. I did perform a cystogram with the cystoscope demonstrating no evidence of extravasation of contrast. With further assessment, I did not see any obvious efflux from the right kidney at 15 -20 minute interval. Therefore, retrograde pyelogram was performed in right kidney demonstrating significantly dilated proximal ureter with tortuosity. We had to pass the open-ended catheter and increments to bypass the tortuous proximal ureter. Angled Glidewire had to be utilized to bypass the tortuosity of the UPJ proximal ureter region. We were able to subsequently negotiate the Glidewire to the level of the upper pole. Subsequently, passed an open-ended catheter and switched the wire to a 0.35 Sensor Wire. A 6 x 28 double-J ureteral stent was passed with a small tail in situ. Upon placing the stent, we did obtain a moderate amount of debris consistent with UTI. No obvious pyelonephrosis was appreciated. There was no gross evidence of hematuria component. The left UO was then staged as there is right hydro. Left UO was intubated with a 5 Argentine open-ended catheter. Retrograde pyelogram was performed demonstrating less tortuosity component; however, there is evidence of left proximal ureteral tortuosity. We passed a 0.35 Sensor Wire and passed a 6 x 28 double-J ureteral stent. Efflux of urine was noted consistent with UTI and there was a small mucous like debris that passed exiting the left UO and this was sent for histologic evaluation. This is most likely consistent with UTI debris. I again surveyed the bladder which demonstrated no evidence of tumor. At this time, a 22 Argentine 3-way Walton catheter was placed. A 30 mL was insufflated. There was no area that required fulguration as there was no active oozing from the bladder mucosa. Therefore, I did not fulgurate any areas. I did repeat a cystogram with the Walton catheter demonstrating no extravasation and proper Walton catheter placement. Walton catheter was attached to gravity, demonstrating concentrated pink tinged urine. I will hold the CBI and monitor her urine. We will continue broad spectrum antibiotics. MARY
[2018-02-23] MEDS ORDERED: Lidocaine 1% PF 5 ML VIAL ONE (13:33)
[2018-02-23] MEDS ORDERED: PHENYLEPHRINE-NS 100 MCG/ML 10 ML SYRINGE ONE (13:33)
[2018-02-23] MEDS ORDERED: ePHEDrine/0.9% NaCl/PF SYRINGE 50 mg/10 ml ONE (13:33)
[2018-02-23] MEDS ORDERED: PROPOFOL 200 MG/20 ML VIAL ONE (13:33)
--- NOTE | 2018-02-23 14:21 | RAD ---
RETROGRADE IVP: History: 87-year-old female with history of gross hematuria and acute kidney injury. FINDINGS: Multiple portable fluoroscopic spot images are performed. There is dilatation of the right upper brittney l collecting system, particularly an extra-renal pelvis and proximal right ureter. There is mild full ness and dilatation of the left extrarenal pelvis. Bilateral ureteral stents placed. Dilatation of the right renal extrarenal pelvis and upper right ureter. Slight fullness of the left u pper renal collecting system. Bilateral ureteral stents. Findings discussed with Dr. Vogel. POS: [facility]
[2018-02-23] MEDS: Gabapentin 300 MG CAP PO SCH ×2 (14:33→20:28)
[2018-02-23] MEDS: Docusate 100 MG CAP PO SCH (14:33)
[2018-02-23] MEDS: cefTRIAXone\\ROCEPHIN 2 GM, Admixture Fee 1 EACH in Sodium Chloride 0.9% 100 ML IVPB SCH (14:35)
[2018-02-23 15:16] LABS: Hemoglobin 10.8 g/dL (12.0-16.0)
--- NOTE | 2018-02-23 15:22 | EKG ---
Test Reason : Blood Pressure : / mmHG Vent. Rate : 063 BPM Atrial Rate : 063 BPM P-R Int : 158 ms QRS Dur : 086 ms QT Int : 410 ms P-R-T Axes : 055 007 066 degrees QTc Int : 419 ms Normal sinus rhythm Normal ECG Confirmed by GIUSEPPE GUZMÁN ([id number]) on 02/23/2018 3:22:20 PM Referred By: REMI Confirmed By:GIUSEPPE GUZMÁN
--- NOTE | 2018-02-23 16:00 | PDOC.PN ---
- Subjective Encounter Start Date: 02/23/18 Encounter Start Time: 16:00 Subjective: pt complaining of spasms to her lower abd - Objective Vital Signs & Weight: Vital Signs (12 hours) Temp Pulse Resp BP Pulse Ox 02/23/18 15:20 98.4 F 83 18 145/75 H 97 02/23/18 14:20 97.7 F 84 18 136/78 97 02/23/18 08:00 98.2 F 91 18 97 02/23/18 07:54 98.2 F 91 18 113/69 99 Weight Admit Weight 171 lb 12.8 oz Weight 171 lb 12.8 oz I&O: 02/22/18 02/23/18 02/24/18 06:59 06:59 06:59 Intake Total 50593 Output Total 69133 Balance -9707 Result Diagrams: 02/23/18 15:09 02/23/18 03:59 Phys Exam - Physical Examination appears pale Respiratory: no wheezing, no rales, no rhonchi, wheezing present, clear to auscultation bilateral Cardiovascular: RRR, no significant murmur, no rub, gallop, irregular Gastrointestinal: soft, positive bowel sounds mild tenderness to lower abd area Musculoskeletal: no edema, pulses present, edema present Dx/Plan (1) Hematuria Code(s): R31.9 - HEMATURIA, UNSPECIFIED Status: Acute (2) Abdominal pain Code(s): R10.9 - UNSPECIFIED ABDOMINAL PAIN Status: Acute (3) Acute blood loss anemia Code(s): D62 - ACUTE POSTHEMORRHAGIC ANEMIA Status: Acute (4) Autoimmune hepatitis Code(s): K75.4 - AUTOIMMUNE HEPATITIS Status: Acute (5) UTI (urinary tract infection) Status: Acute - Plan spoke with urology will continue abx for now -: bilateral ureteral stents placed due to hydronephrosis but no stones -: pt has a hx of autoimmune hepatitis and on imuran -: urine cx indicated ecoli she is on ceftriaxone * . Review of Systems - Review of Systems ENT: negative: Ear Pain, Ear Discharge, Nose Pain, Nose Discharge, Nose Congestion, Mouth Pain, Mouth Swelling, Throat Pain, Throat Swelling, Other Respiratory: negative: Cough, Dry, Shortness of Breath, Hemoptysis, SOB with Excertion, Pleuritic Pain, Sputum, Wheezing Cardiovascular: negative: chest pain, palpitations, orthopnea, paroxysmal nocturnal dyspnea, edema, light headedness, other Gastrointestinal: Abdominal Pain Genitourinary: negative: Dysuria, Frequency, Incontinence, Hematuria, Retention , Other - Medications/Allergies Allergies/Adverse Reactions: Allergies Allergy/AdvReac Type Severity Reaction Status Date / Time ciprofloxacin HCl Allergy Unknown Verified 04/13/14 16:25 [From Cipro] Pork/Porcine Containing Allergy Verified 04/13/14 16:26 Products tomato [Tomato] Allergy Verified 04/13/14 16:26 SILICONE Allergy Mild Uncoded 03/29/14 11:55 Medications: Current Medications Acetaminophen (Tylenol) 650 mg PO Q4H PRN PRN Reason: Headache/Fever or Pain Last Admin: 02/22/18 21:47 Dose: 650 mg Buspirone HCl (Buspar) 15 mg PO TID [facility] Last Admin: 02/23/18 14:31 Dose: 15 mg Cholecalciferol (Vitamin D3) 5,000 units PO DAILY [facility] Last Admin: 02/23/18 14:30 Dose: 5,000 units Docusate Sodium (Colace) 100 mg PO DAILY [facility] Last Admin: 02/23/18 14:33 Dose: 100 mg Famotidine (Pepcid) 20 mg PO HS [facility] Last Admin: 02/22/18 20:11 Dose: 20 mg Furosemide (Lasix) 20 mg SLOW IVP [facility] Gabapentin (Neurontin) 300 mg PO BID [facility] Last Admin: 02/23/18 14:33 Dose: 300 mg Hyoscyamine Sulfate (Levsin Sl) 0.25 mg SL Q6H [facility] Last Admin: 02/23/18 14:33 Dose: 0.25 mg Sodium Chloride (Normal Saline 0.9%) 1,000 mls @ 100 mls/hr IV .Q10H [facility] Last Admin: 02/23/18 14:34 Dose: 1,000 mls Ceftriaxone Sodium 2 gm/Miscellaneous Medication 1 each/ Sodium Chloride 100 mls @ 200 mls/hr IVPB Q24HR [facility] Last Admin: 02/23/18 14:35 Dose: Not Given Piperacillin Sod/Tazobactam (Sod 3.375 gm/ Sodium Chloride) 100 mls @ 200 mls/ hr IVPB [facility] Stop: 02/23/18 21:00 Melatonin (Melatonin) 4.5 mg PO HS [facility] Last Admin: 02/22/18 20:10 Dose: 4.5 mg Morphine Sulfate (Morphine) 2 mg SLOW IVP Q4H PRN PRN Reason: Pain Sodium Chloride (Flush - Normal Saline) 10 ml IVF PRN PRN PRN Reason: Saline Flush Sodium Chloride (Flush - Normal Saline) 10 ml IVF PRN PRN PRN Reason: Saline Flush Tramadol HCl (Ultram) 50 mg PO Q6H PRN PRN Reason: Pain
[2018-02-23] MEDS: Acetaminophen 325 MG TAB PO PRN (17:42)
[2018-02-23] MEDS: Famotidine 20 MG TAB PO SCH (20:28)
[2018-02-23] MEDS: Melatonin 3 MG TAB PO SCH (21:48)
[2018-02-24] MEDS: Hyoscyamine Sulfate SL 0.125 mg Tablet SL SCH ×4 (02:26→21:01)
[2018-02-24 04:22] LABS: #Eosinphils 0.2 thou/uL (0.0-0.7); #Lymphocytes 1.6 thou/uL (1.20-3.40); #Monocytes 1.2 thou/uL (0.11-0.59); %Basophils 0.3 % (0.0-1.0); %Eosinophils 1.8 % (0.0-10.0); %Lymphocytes 17.7 % (21.0-51.0); %Monocytes 13.6 % (0.0-10.0); %Neutrophils 66.6 % (42.0-75.0); Hemoglobin 8.4 g/dL (12.0-16.0); Mean Corpuscular HGB CONC 33.2 g/dL (32.0-36.0); Mean Corpuscular Hemoglobin 32.5 pg (27.0-31.0); Mean Platelet Volume 6.2 fL (7.4-10.4); Platelet Count 251 thou/uL (130-400); RBC Distribution Width 14.2 % (11.5-14.5); Red Blood Cell (RBC) Count 2.58 mill/uL (4.20-5.40); White Blood Cell (WBC) Count 8.9 thou/uL (4.8-10.8)
[2018-02-24 04:35] LABS: Anion Gap 12 mmol/L (10-20); BUN (Urea Nitrogen) 21 mg/dL (9.8-20.1); Calc. Creatinine Clearance 36 mL/min (70-130); Calcium 8.4 mg/dL (7.8-10.44); Carbon Dioxide 17 mmol/L (23-31); Chloride 117 mmol/L (98-107); Estimated GFR-MDRD 36; Glucose 107 mg/dL (83-110); Potassium 4.6 mmol/L (3.5-5.1); Sodium 141 mmol/L (136-145)
--- NOTE | 2018-02-24 09:28 | PRG ---
DATE OF SERVICE: 02/24/2018 SUBJECTIVE: The patient is sleeping. PHYSICAL EXAMINATION: VITAL SIGNS: Stable, 97.8, and 94, 18, 94, 108/66. ABDOMEN: Soft, she does have some tenderness in the suprapubic region. No gross rigidity, no rebound is appreciated. The patient has baseline significant anxiety. I's and O's 4677 in, 3150 out, poor oral intake. She is on IV fluids at 100 mL an hour. LABORATORY DATA: Creatinine decreased to 1.3, admitting creatinine 2.7. White count 8.9, hemoglobin 8.4, status post 1 unit packed RBC of 7.8, appropriate increase, platelets 251. Urine culture finalize consistent with prior urine culture from January demonstrating E. coli, pansensitive except to ampicillin, currently on Rocephin. IMPRESSION AND PLAN: 1. Ms. Vaz is an 87-year-old female with severe deconditioned status. 2. Recent right open reduction and internal fixation. 3. Recent Escherichia coli with recurrence/persistence of E. coli urinary tract infection. unclear if it was addressed. 4. Postop day #1 status post cystoscopy, evacuation of clots, bilateral retrograde stent placement due to delayed excretion, hydronephrosis with tortuous proximal ureter right greater than left Will continue her Walton catheter, monitor for recurrence of hematuria requiring restarting CBI. The patient will be discharged to inpatient rehab when urine output remains relatively clear off CBI. She will need a followup assessment regarding her bilateral hydronephrosis, it is likely due to urinary tract infection component. However, warrants ureteroscopy at a later date. Continue Rocephin. Condition guarded. Recommend continue to hold immunosuppressants, due to risk of sepsis. MTDD
[2018-02-24] MEDS: Docusate 100 MG CAP PO SCH (09:46)
[2018-02-24] MEDS: busPIRone HCl 10 MG TAB PO SCH ×3 (09:49→21:01)
[2018-02-24] MEDS: buPROPion HCl 100 MG TAB PO SCH ×2 (09:50→21:01)
[2018-02-24] MEDS: Gabapentin 300 MG CAP PO SCH ×2 (09:51→21:01)
[2018-02-24] MEDS: cefTRIAXone\\ROCEPHIN 2 GM, Admixture Fee 1 EACH in Sodium Chloride 0.9% 100 ML IVPB SCH (14:22)
[2018-02-24] MEDS: Famotidine 20 MG TAB PO SCH (21:01)
[2018-02-24] MEDS: Melatonin 3 MG TAB PO SCH (21:01)
--- NOTE | 2018-02-24 21:40 | PDOC.PN ---
- Subjective Encounter Start Date: 02/24/18 Encounter Start Time: 10:15 Subjective: pt up in bed no more abdomen pain. she is very emotional - Objective Vital Signs & Weight: Vital Signs (12 hours) Temp Pulse Resp BP Pulse Ox 02/24/18 21:29 98.6 F 85 18 112/50 L 92 L 02/24/18 16:40 98.1 F 72 16 119/69 94 L 02/24/18 16:39 98.1 F 72 16 119/69 94 L 02/24/18 11:31 98.1 F 72 18 110/65 99 02/24/18 11:30 98.1 F 72 18 110/65 99 02/24/18 09:45 98.1 F 72 18 96 Weight Admit Weight 171 lb 12.8 oz Weight 171 lb 12.8 oz I&O: 02/23/18 02/24/18 02/25/18 06:59 06:59 06:59 Intake Total 91782 4677 200 Output Total 17958 3154 1200 Balance -9707 1527 -1000 Result Diagrams: 02/24/18 04:00 02/24/18 04:00 Phys Exam - Physical Examination HEENT: PERRLA, moist MMs, sclera anicteric, TM's clear, oral pharynx no lesions , 2+ tonsils Neck: no nodes, no JVD, supple, full ROM Respiratory: no wheezing, no rales, no rhonchi, wheezing present, clear to auscultation bilateral Cardiovascular: RRR, no significant murmur, no rub, gallop, irregular Gastrointestinal: soft, non-tender, no distention, positive bowel sounds Dx/Plan (1) Hematuria Code(s): R31.9 - HEMATURIA, UNSPECIFIED Status: Acute (2) Abdominal pain Code(s): R10.9 - UNSPECIFIED ABDOMINAL PAIN Status: Acute (3) Acute blood loss anemia Code(s): D62 - ACUTE POSTHEMORRHAGIC ANEMIA Status: Acute (4) Autoimmune hepatitis Code(s): K75.4 - AUTOIMMUNE HEPATITIS Status: Acute (5) UTI (urinary tract infection) Status: Acute - Plan spoke with urology who recommended to continue abx -: Also recommended to hold her Imuran for now given her risk of worseining -: infection and also wound healing of her right ankle. possible snf in am vs -: sat * . Review of Systems - Review of Systems ENT: negative: Ear Pain, Ear Discharge, Nose Pain, Nose Discharge, Nose Congestion, Mouth Pain, Mouth Swelling, Throat Pain, Throat Swelling, Other Respiratory: negative: Cough, Dry, Shortness of Breath, Hemoptysis, SOB with Excertion, Pleuritic Pain, Sputum, Wheezing Cardiovascular: negative: chest pain, palpitations, orthopnea, paroxysmal nocturnal dyspnea, edema, light headedness, other Gastrointestinal: negative: Nausea, Vomiting, Abdominal Pain, Diarrhea, Constipation, Melena, Hematochezia, Other - Medications/Allergies Allergies/Adverse Reactions: Allergies Allergy/AdvReac Type Severity Reaction Status Date / Time ciprofloxacin HCl Allergy Unknown Verified 04/13/14 16:25 [From Cipro] Pork/Porcine Containing Allergy Verified 04/13/14 16:26 Products tomato [Tomato] Allergy Verified 04/13/14 16:26 SILICONE Allergy Mild Uncoded 03/29/14 11:55 Medications: Current Medications Acetaminophen (Tylenol) 650 mg PO Q4H PRN PRN Reason: Headache/Fever or Pain Last Admin: 02/23/18 17:42 Dose: 650 mg Bupropion HCl (Wellbutrin) 100 mg PO BID [facility] Last Admin: 02/24/18 21:01 Dose: 100 mg Buspirone HCl (Buspar) 15 mg PO TID [facility] Last Admin: 02/24/18 21:01 Dose: 15 mg Cholecalciferol (Vitamin D3) 5,000 units PO DAILY [facility] Last Admin: 02/24/18 09:48 Dose: 5,000 units Docusate Sodium (Colace) 100 mg PO DAILY [facility] Last Admin: 02/24/18 09:46 Dose: 100 mg Famotidine (Pepcid) 20 mg PO HS [facility] Last Admin: 02/24/18 21:01 Dose: 20 mg Furosemide (Lasix) 20 mg SLOW IVP [facility] Gabapentin (Neurontin) 300 mg PO BID [facility] Last Admin: 02/24/18 21:01 Dose: 300 mg Hyoscyamine Sulfate (Levsin Sl) 0.25 mg SL Q6H [facility] Last Admin: 02/24/18 21:01 Dose: 0.25 mg Ceftriaxone Sodium 2 gm/Miscellaneous Medication 1 each/ Sodium Chloride 100 mls @ 200 mls/hr IVPB Q24HR [facility] Last Admin: 02/24/18 14:22 Dose: 100 mls Melatonin (Melatonin) 4.5 mg PO HS [facility] Last Admin: 02/24/18 21:01 Dose: 4.5 mg Morphine Sulfate (Morphine) 2 mg SLOW IVP Q4H PRN PRN Reason: Pain Last Admin: 02/24/18 09:51 Dose: 2 mg Sodium Chloride (Flush - Normal Saline) 10 ml IVF PRN PRN PRN Reason: Saline Flush Tramadol HCl (Ultram) 50 mg PO Q6H PRN PRN Reason: Pain
[2018-02-25] MEDS: Hyoscyamine Sulfate SL 0.125 mg Tablet SL SCH ×4 (01:11→19:57)
[2018-02-25 05:27] LABS: #Lymphocytes 1.4 thou/uL (1.20-3.40); #Neutrophils 5.7 thou/uL (1.40-6.50); %Basophils 0.5 % (0.0-1.0); %Lymphocytes 15.4 % (21.0-51.0); %Monocytes 11.1 % (0.0-10.0); %Neutrophils 62.1 % (42.0-75.0); Hemoglobin 8.1 g/dL (12.0-16.0); Mean Corpuscular HGB CONC 34.1 g/dL (32.0-36.0); Mean Corpuscular Hemoglobin 32.2 pg (27.0-31.0); Mean Corpuscular Volume 94.2 fL (78.0-98.0); Platelet Count 230 thou/uL (130-400); RBC Distribution Width 14.4 % (11.5-14.5); Red Blood Cell (RBC) Count 2.51 mill/uL (4.20-5.40); White Blood Cell (WBC) Count 9.1 thou/uL (4.8-10.8)
[2018-02-25 05:37] LABS: Anion Gap 10 mmol/L (10-20); BUN (Urea Nitrogen) 14 mg/dL (9.8-20.1); Calc. Creatinine Clearance 46 mL/min (70-130); Calcium 9.1 mg/dL (7.8-10.44); Carbon Dioxide 22 mmol/L (23-31); Chloride 112 mmol/L (98-107); Estimated GFR-MDRD 49; Glucose 105 mg/dL (83-110); Potassium 4.5 mmol/L (3.5-5.1); Sodium 139 mmol/L (136-145)
--- NOTE | 2018-02-25 08:05 | PRG ---
DATE OF SERVICE: 02/25/2018 SUBJECTIVE: The patient is resting comfortably, however, when aroused she is extremely anxious, often crying, when asked cannot give me a definitive reason. Per son, the patient has significant anxiety and tends to cry spontaneously. This is her baseline. PHYSICAL EXAMINATION: VITAL SIGNS: Stable 98.5, 80, 18, 93, 147/75. I's and O's; the patient has poor oral intake, only 120 over the last 24 hours, much of her intake is through the IV. Total I's and O's 4320 in, 5175 of urine output. She has been off CBI for more than 24 hours. Urine output in tubing is yane. ABDOMEN: Soft. No rigidity, no rebound. When aroused, the patient became anxious and with movement, her Walton catheter did become transiently romero red. I flushed immediately to clear through the CBI tubing. I did gently manually irrigate her at bedside with no subsequent clots. Subsequent urine return to yane color. LABORATORY DATA: White count today is 9.1, hemoglobin stable at 8.1, platelet 230. Renal function is improved with bilateral stents. Admitting creatinine 2.7, currently is 1.0 this morning. Urine culture 02/21/2018 demonstrating E. coli, pansensitive except to ampicillin. on Rocephin. IMPRESSION AND PLAN: 1. Ms. Vaz is an 87-year-old female from [facility]. Previous admitted last month due to right ankle fracture open reduction and internal fixation. 2. History of autoimmune hepatitis. Previously on Imuran, which has been held upon admission. recommend cont to hold Imuran due to presenting UTI, risk of sepsis. 3. Escherichia coli hemorrhagic cystitis, postop day #2, status post cystoscopy , evacuation of clots, bilateral ureteral stent secondary to bilateral hydronephrosis. 4. Bilateral hydronephrosis, most likely due to adherent clot in the trigone upon presentation. 5. Severely deconditioned status. Patient continues to have a severely poor oral intake. 6. new onest cough, sore throat. medical work up advised; preop CXR normal recommend IV fluids due to poor intake Her renal function has stabilized with bilateral stents. recommend antibiotic tx for minimum for 14 days, she can be transitioned to po upon transfer back to [place]. She does have recurrence of hematuria with bladder spasms this am currently on Levsin. on afternoon rounds uo is clear yane. Her H&H is stable. bilateral hydronephrosis will be worked up at a later date recommend ureteroscopy at a later point to rule out occult pathology ; however, my suspicion is hydronephrosis secondary to clot retention and acute hemorrhagic cystitis with adherent trigonal blood clot from hemorrhagic cystitis. She will keep her indwelling Walton catheter until further workup, i.e., ureteroscopy at a later date. Continue Levsin for bladder spasms., Iv rocephin while in house. due to decreased po intake, deconditioned status , and inability for IVF at SNF , it would be prudent to observe pt over weekend for medical optimization. CBI will remain connected/ clamped; nursing staff ordered to flush prn via cbi. Dr White covering me this weekend MTDD
[2018-02-25] MEDS: buPROPion HCl 100 MG TAB PO SCH ×2 (09:00→19:57)
[2018-02-25] MEDS: busPIRone HCl 10 MG TAB PO SCH ×3 (09:01→19:58)
[2018-02-25] MEDS: Acetaminophen 325 MG TAB PO PRN (09:02)
[2018-02-25] MEDS: Docusate 100 MG CAP PO SCH (09:02)
[2018-02-25] MEDS: Gabapentin 300 MG CAP PO SCH ×2 (09:02→19:59)
[2018-02-25] MEDS: cefTRIAXone\\ROCEPHIN 2 GM, Admixture Fee 1 EACH in Sodium Chloride 0.9% 100 ML IVPB SCH (14:12)
[2018-02-25] MEDS: Famotidine 20 MG TAB PO SCH (19:59)
[2018-02-25] MEDS: Melatonin 3 MG TAB PO SCH (20:02)
[2018-02-26] MEDS: Hyoscyamine Sulfate SL 0.125 mg Tablet SL SCH ×4 (02:08→20:30)
[2018-02-26] MEDS: Gabapentin 300 MG CAP PO SCH ×2 (08:05→20:32)
[2018-02-26] MEDS: busPIRone HCl 10 MG TAB PO SCH ×3 (08:06→20:32)
[2018-02-26] MEDS: buPROPion HCl 100 MG TAB PO SCH ×2 (08:07→20:32)
[2018-02-26] MEDS: Docusate 100 MG CAP PO SCH (08:07)
--- NOTE | 2018-02-26 10:17 | PDOC.PN ---
- Subjective Encounter Start Date: 02/25/18 Encounter Start Time: 13:00 pAtient is seen today,m with pt Family friend at bedside, Pt has worseing weakness. She has UTI and Uretric calculus with Bilateral stents. With No pain but physcial debility. She c/o cough with no response to Claritin. - Objective MAR Reviewed: Yes Vital Signs & Weight: Vital Signs (12 hours) Temp Pulse Resp BP Pulse Ox 02/26/18 08:00 98.3 F 87 18 116/59 L 96 02/26/18 03:31 91 L Weight Admit Weight 171 lb 12.8 oz Weight 171 lb 12.8 oz I&O: 02/25/18 02/26/18 02/27/18 06:59 06:59 06:59 Intake Total 4320 1400 Output Total 5175 2850 Balance -855 -1450 Result Diagrams: 02/25/18 04:39 02/25/18 04:39 Radiology Reviewed by me: Yes Phys Exam - Physical Examination HEENT: PERRLA, moist MMs Neck: no nodes Respiratory: no wheezing, no rales Cardiovascular: RRR, no significant murmur Gastrointestinal: soft, non-tender Musculoskeletal: no edema, pulses present Neurological: non-focal, normal sensation Lymphatic: no nodes Dx/Plan (1) Abdominal pain Code(s): R10.9 - UNSPECIFIED ABDOMINAL PAIN Status: Acute Comment: likely from uretric stone, is now resolved. (2) Acute blood loss anemia Code(s): D62 - ACUTE POSTHEMORRHAGIC ANEMIA Status: Acute Comment: Will continue with iron supplements. 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 (4) Hematuria Code(s): R31.9 - HEMATURIA, UNSPECIFIED Status: Acute Comment: dr. Soheila stewart is consulted, s/p Stents ureters. Will closley Monitor. (5) UTI (urinary tract infection) Status: Acute Comment: Continue on IV abx now, and in SNF. cultures sensitive to Abx (6) Dizziness Code(s): R42 - DIZZINESS AND GIDDINESS Status: Active Comment: Likely from physcial decditioning, will continue with PT/OT and improve nutrition. - Plan cont current plan of care, plan discussed w/ family, continue antibiotics, PT/OT , marriage and family social worker, respiratory therapy, incentive spirometry, out of bed/ ambulate, DVT proph w/lovenox * . Review of Systems - Review of Systems Constitutional: weakness, malaise Eyes: negative: Pain, Vision Change, Conjunctivae Inflammation, Eyelid Inflammation, Redness, Other ENT: negative: Ear Pain, Ear Discharge, Nose Pain, Nose Discharge, Nose Congestion, Mouth Pain, Mouth Swelling, Throat Pain, Throat Swelling, Other Respiratory: Cough. negative: Dry, Shortness of Breath, Hemoptysis, SOB with Excertion, Pleuritic Pain, Sputum, Wheezing Cardiovascular: negative: chest pain, palpitations, orthopnea, paroxysmal nocturnal dyspnea, edema, light headedness, other Gastrointestinal: negative: Nausea, Vomiting, Abdominal Pain, Diarrhea, Constipation, Melena, Hematochezia, Other Genitourinary: negative: Dysuria, Frequency, Incontinence, Hematuria, Retention , Other Musculoskeletal: negative: Neck Pain, Shoulder Pain, Arm Pain, Back Pain, Hand Pain, Leg Pain, Foot Pain, Other Neurological: Weakness - Medications/Allergies Allergies/Adverse Reactions: Allergies Allergy/AdvReac Type Severity Reaction Status Date / Time ciprofloxacin HCl Allergy Unknown Verified 04/13/14 16:25 [From Cipro] Pork/Porcine Containing Allergy Verified 04/13/14 16:26 Products tomato [Tomato] Allergy Verified 04/13/14 16:26 SILICONE Allergy Mild Uncoded 03/29/14 11:55 Medications: Current Medications Acetaminophen (Tylenol) 650 mg PO Q4H PRN PRN Reason: Headache/Fever or Pain Last Admin: 02/25/18 09:02 Dose: 650 mg Bupropion HCl (Wellbutrin) 100 mg PO BID [facility] Last Admin: 02/26/18 08:07 Dose: 100 mg Buspirone HCl (Buspar) 15 mg PO TID [facility] Last Admin: 02/26/18 08:06 Dose: 15 mg Cholecalciferol (Vitamin D3) 5,000 units PO DAILY [facility] Last Admin: 02/26/18 08:06 Dose: 5,000 units Docusate Sodium (Colace) 100 mg PO DAILY [facility] Last Admin: 02/26/18 08:07 Dose: 100 mg Famotidine (Pepcid) 20 mg PO HS [facility] Last Admin: 02/25/18 19:59 Dose: 20 mg Fluticasone Propionate (Flonase Nasal [place]) 0 gm NASAL DAILY [facility] Furosemide (Lasix) 20 mg SLOW IVP WILLCALL [facility] Gabapentin (Neurontin) 300 mg PO BID [facility] Last Admin: 02/26/18 08:05 Dose: 300 mg Hyoscyamine Sulfate (Levsin Sl) 0.25 mg SL Q6H [facility] Last Admin: 02/26/18 08:07 Dose: 0.25 mg Ceftriaxone Sodium 2 gm/Miscellaneous Medication 1 each/ Sodium Chloride 100 mls @ 200 mls/hr IVPB Q24HR [facility] Last Admin: 02/25/18 14:12 Dose: 100 mls Melatonin (Melatonin) 4.5 mg PO HS [facility] Last Admin: 02/25/18 20:02 Dose: 4.5 mg Morphine Sulfate (Morphine) 2 mg SLOW IVP Q4H PRN PRN Reason: Pain Last Admin: 02/24/18 09:51 Dose: 2 mg Sodium Chloride (Flush - Normal Saline) 10 ml IVF PRN PRN PRN Reason: Saline Flush Tramadol HCl (Ultram) 50 mg PO Q6H PRN PRN Reason: Pain
[2018-02-26] MEDS ORDERED: Loratadine 10 MG TAB PO PRN (10:30)
[2018-02-26] MEDS ORDERED: Benzonatate 100 MG CAP PO PRN (13:58)
[2018-02-26] MEDS ORDERED: Milk Of Magnesia 30 ML UDCUP PO PRN (14:07)
--- NOTE | 2018-02-26 14:11 | PDOC.PN ---
- Subjective Encounter Start Date: 02/26/18 Encounter Start Time: 13:00 Nora is seen today, along with her son who came from [place] , Explained to him about his cough could be related to lisinopril and will last for a week. I was started by Dr. Valle recently according to her. - Objective MAR Reviewed: Yes Vital Signs & Weight: Vital Signs (12 hours) Temp Pulse Resp BP Pulse Ox 02/26/18 08:00 98.3 F 87 18 116/59 L 96 02/26/18 03:31 91 L Weight Admit Weight 171 lb 12.8 oz Weight 171 lb 12.8 oz I&O: 02/25/18 02/26/18 02/27/18 06:59 06:59 06:59 Intake Total 4320 1400 240 Output Total 5175 2850 Balance -855 -1450 240 Result Diagrams: 02/25/18 04:39 02/25/18 04:39 Radiology Reviewed by me: Yes Phys Exam - Physical Examination HEENT: PERRLA, moist MMs Neck: no nodes, no JVD Respiratory: no wheezing Cardiovascular: RRR, no significant murmur Gastrointestinal: soft, non-tender Musculoskeletal: no edema, pulses present Neurological: non-focal, normal sensation Lymphatic: no nodes Psychiatric: normal affect, A&O x 3 Dx/Plan (1) Abdominal pain Code(s): R10.9 - UNSPECIFIED ABDOMINAL PAIN Status: Acute Comment: likely from uretric stone, is now resolved. (2) Acute blood loss anemia Code(s): D62 - ACUTE POSTHEMORRHAGIC ANEMIA Status: Acute Comment: Will continue with iron supplements.Possoble hematuria bnlood loss. 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 (4) Hematuria Code(s): R31.9 - HEMATURIA, UNSPECIFIED Status: Acute Comment: dr. Soheila stewart is consulted, s/p Stents ureters. No evidence of renal stones on IVP. Will closley Monitor. (5) UTI (urinary tract infection) Status: Acute Comment: Continue on IV abx now, and in SNF. cultures sensitive to Abx (6) Dizziness Code(s): R42 - DIZZINESS AND GIDDINESS Status: Active Comment: Likely from physcial decditioning, will continue with PT/OT and improve nutrition. (7) Cough due to DMITRI inhibitor Code(s): R05 - COUGH; T46.4X5A - ADVERSE EFFECT OF [id number] INHIBITORS, INIT Status: Acute Comment: Likely reason for worseing dry cough , pt was on it until admission, likely the efects should go away in a week. Chest xray clear, recent Echo was normal will repeat chest xray, Will do Tesslon persl, and restart on azelestine/ loratidine and Nasonex. - Plan cont current plan of care, plan discussed w/ family, PT/OT, social worker aide, respiratory therapy, incentive spirometry, DVT proph w/lovenox Plan to dischagre Wednesday to SNF. * . Review of Systems - Review of Systems Eyes: negative: Pain, Vision Change, Conjunctivae Inflammation, Eyelid Inflammation, Redness, Other ENT: negative: Ear Pain, Ear Discharge, Nose Pain, Nose Discharge, Nose Congestion, Mouth Pain, Mouth Swelling, Throat Pain, Throat Swelling, Other Respiratory: Cough, Dry. negative: Shortness of Breath, Hemoptysis, SOB with Excertion, Pleuritic Pain, Sputum, Wheezing Cardiovascular: negative: chest pain, palpitations, orthopnea, paroxysmal nocturnal dyspnea, edema, light headedness, other Gastrointestinal: negative: Nausea, Vomiting, Abdominal Pain, Diarrhea, Constipation, Melena, Hematochezia, Other Musculoskeletal: negative: Neck Pain, Shoulder Pain, Arm Pain, Back Pain, Hand Pain, Leg Pain, Foot Pain, Other Skin: negative: Rash, Lesions, Abe, Bruising, Other - Medications/Allergies Allergies/Adverse Reactions: Allergies Allergy/AdvReac Type Severity Reaction Status Date / Time ciprofloxacin HCl Allergy Unknown Verified 04/13/14 16:25 [From Cipro] Pork/Porcine Containing Allergy Verified 04/13/14 16:26 Products tomato [Tomato] Allergy Verified 04/13/14 16:26 SILICONE Allergy Mild Uncoded 03/29/14 11:55 Medications: Current Medications Acetaminophen (Tylenol) 650 mg PO Q4H PRN PRN Reason: Headache/Fever or Pain Last Admin: 02/25/18 09:02 Dose: 650 mg Azelastine HCl (Azelastine) 0 ml NS BID [facility] Benzonatate (Tessalon) 100 mg PO Q4H PRN PRN Reason: Cough Bupropion HCl (Wellbutrin) 100 mg PO BID [facility] Last Admin: 02/26/18 08:07 Dose: 100 mg Buspirone HCl (Buspar) 15 mg PO TID [facility] Last Admin: 02/26/18 08:06 Dose: 15 mg Cholecalciferol (Vitamin D3) 5,000 units PO DAILY [facility] Last Admin: 02/26/18 08:06 Dose: 5,000 units Docusate Sodium (Colace) 100 mg PO DAILY [facility] Last Admin: 02/26/18 08:07 Dose: 100 mg Famotidine (Pepcid) 20 mg PO HS [facility] Last Admin: 02/25/18 19:59 Dose: 20 mg Fluticasone Propionate (Flonase Nasal [place]) 0 gm NASAL DAILY [facility] Furosemide (Lasix) 20 mg SLOW IVP WILLCALL [facility] Gabapentin (Neurontin) 300 mg PO BID [facility] Last Admin: 02/26/18 08:05 Dose: 300 mg Hyoscyamine Sulfate (Levsin Sl) 0.25 mg SL Q6H [facility] Last Admin: 02/26/18 08:07 Dose: 0.25 mg Ceftriaxone Sodium 2 gm/Miscellaneous Medication 1 each/ Sodium Chloride 100 mls @ 200 mls/hr IVPB Q24HR [facility] Last Admin: 02/25/18 14:12 Dose: 100 mls Loratadine (Claritin) 10 mg PO DAILY [facility] Magnesium Hydroxide (Milk Of Magnesium) 30 ml PO DAILY PRN PRN Reason: Constipation Melatonin (Melatonin) 4.5 mg PO [facility] Last Admin: 02/25/18 20:02 Dose: 4.5 mg Mirabegron (Myrbetriq Er) 25 mg PO DAILY [facility] Morphine Sulfate (Morphine) 2 mg SLOW IVP Q4H PRN PRN Reason: Pain Last Admin: 02/24/18 09:51 Dose: 2 mg Non-Formulary Medication (Carboxymethylcellulose Sodium [Refresh Tears]) 15 ml OP QID [facility] Pantoprazole Sodium (Protonix) 40 mg PO DAILY [facility] Propranolol HCl (Inderal La) 60 mg PO DAILY [facility] Sodium Chloride (Flush - Normal Saline) 10 ml IVF PRN PRN PRN Reason: Saline Flush Tramadol HCl (Ultram) 50 mg PO Q6H PRN PRN Reason: Pain Tramadol HCl (Ultram) 50 mg PO QID [facility]
[2018-02-26] MEDS: cefTRIAXone\\ROCEPHIN 2 GM, Admixture Fee 1 EACH in Sodium Chloride 0.9% 100 ML IVPB SCH (15:23)
--- NOTE | 2018-02-26 15:34 | PRG ---
DATE OF SERVICE: 02/26/2018 REASON FOR HOSPITAL ADMISSION: Gross hematuria and bilateral hydronephrosis. HISTORY OF PRESENT ILLNESS: Ms. Carey Vaz is a very pleasant 87-year-old white female orig inally from [place] who moved here to work at the [employer] with her about 40 years ag o. She had clot retention at presentation as well as bilateral hydronephrosis and underwent cystoure throscopy with bilateral stents. A three-way Walton catheter was placed on 02/23/[address] [facility]. The patient has been doing reasonably well since then on Rocephin therapy. PHYSICAL EXAMINATION: VITAL SIGNS: Patient is afebrile with current temperature of 98.3, pulse 87, respirations 18, O2 sat urations 96% on room air, blood pressure is 116/59. GENERAL: This is a pleasant, awake, alert, oriented x3. GCS 15. White female in no distress. She is evaluated supine in bed. She is currently enjoying some soup for lunch. She is conversational an d knows her recent and past history HEENT: Extraocular movements are intact. Sclerae are anicteric. Oropharynx is clear. NECK: Supple. LUNGS: Clear to auscultation bilaterally. CARDIAC: There is a regular rate and rhythm. The patient does report a cough and was noted during p hysical exam as well. This is nonproductive. ABDOMEN: Soft and nontender anteriorly. Suprapubic area possibly a little bit tender. BACK: No true costovertebral angle tenderness. The patient does report right shoulder and back pain which is chronic and unchanged from several years ago by her report. GENITOURINARY: Indwelling Walton catheter is in place. Continuous bladder irrigation is turned off a nd the urine is predominantly clear with a trace amount of hematuria present. EXTREMITIES: The patient complains of pain in her toes on both sides. There are no lesions present on the right side. On the left side, the third ray and fourth ray appeared to have touched and press ed together at some point. There is a dark colored area suggestive of a bruise in that area. Sequen tial compression device is present on the left leg. LABORATORY DATA: Patient's white count is down to 9.1 thousand. There is no neutrophilia and this h as been absent since 02/24/2018. The patient's urine culture obtained by catheter on 02/21/2018 grew E. coli which was sensitive to the current antibiotics cephalosporins as well as CIPRO to which jaren ent is allergic. Gentamicin, nitrofurantoin, and Bactrim are all other alternative medications. ASSESSMENT AND PLAN: Continue the patient on Rocephin therapy. She is currently on a three-way Fole y catheter with general clearing of her urine. At this point, she does not appear to be in much mercedes er from the gross hematuria episode, although this sometimes changes. The patient does have bilatera l indwelling stents which sometimes result in a small amount of hematuria as well. Continuous bladde r irrigation is off. Disposition planning; patient may be able to go back to her long-term on oral or IV antibiotic the rapy. Over 35 minutes of consultation and assessment time was spent in evaluation of this patient, over sim f of which was in [id number] evaluation.
[2018-02-26] MEDS: traMADol HCl 50 MG TAB PO SCH ×2 (16:56→19:53)
[2018-02-26] MEDS ORDERED: REFRESH PLUS (Carboxymethylcellulose 0.5%) Opth Drops EA EYE SCH (17:00)
[2018-02-26] MEDS: Azelastine 137 MCG/Spray 30 ML NS SCH (20:31)
[2018-02-26] MEDS: Melatonin 3 MG TAB PO SCH (20:31)
[2018-02-26] MEDS: Famotidine 20 MG TAB PO SCH (20:32)
[2018-02-26] MEDS: Artificial Tear Sol 15 ML BOT EA EYE SCH (20:36)
[2018-02-26] MEDS ORDERED: Refresh (Polyvinyl Alcohol 1.4%/Povidone 0.6%) Opth Drops EA EYE SCH (21:00)
[2018-02-27] MEDS: Hyoscyamine Sulfate SL 0.125 mg Tablet SL SCH ×4 (01:38→19:36)
[2018-02-27] MEDS: busPIRone HCl 10 MG TAB PO SCH ×3 (07:52→20:12)
[2018-02-27] MEDS: Gabapentin 300 MG CAP PO SCH ×2 (07:53→20:12)
[2018-02-27] MEDS: Loratadine 10 MG TAB PO SCH (07:53)
[2018-02-27] MEDS: Azelastine 137 MCG/Spray 30 ML NS SCH ×2 (07:53→20:15)
[2018-02-27] MEDS: buPROPion HCl 100 MG TAB PO SCH ×2 (07:53→20:12)
[2018-02-27] MEDS: Fluticasone Propionate Nasal Spray 16 gm Bottle NASAL SCH (07:55)
[2018-02-27] MEDS: Artificial Tear Sol 15 ML BOT EA EYE SCH ×4 (07:55→20:18)
[2018-02-27] MEDS: Docusate 100 MG CAP PO SCH (07:55)
[2018-02-27] MEDS: traMADol HCl 50 MG TAB PO SCH ×4 (07:56→20:14)
[2018-02-27] MEDS: Propranolol HCl LA 60 MG CAP PO SCH (07:56)
--- NOTE | 2018-02-27 08:58 | RAD ---
AP VIEW CHEST: 02/26/18 HISTORY: Cough. Shortness of breath. AP view chest is obtained on 02/26/18. Comparison made to previous exam from 02/22/18. AP view chest demonstrates some elevation of the right hemidiaphragm. Ectasia of the aorta is seen. The lungs are well aerated. No evidence of active intrathoracic disease seen. No evidence of effusions, pneumonia or pneumothorax seen. IMPRESSION: Partial elevation of the right hemidiaphragm, otherwise unremarkable AP view chest. POS: [facility]
--- NOTE | 2018-02-27 12:43 | PDOC.PN ---
- Subjective Encounter Start Date: 02/27/18 Encounter Start Time: 12:30 Subjective: f/u for gross hematuria with prior CBI now off. Receiving Rocephin for -: e. coli UTI with plans to continue IV abx on d/c back to SNF. - Objective MAR Reviewed: Yes Vital Signs & Weight: Vital Signs (12 hours) Temp Pulse Resp BP Pulse Ox 02/27/18 10:45 96 02/27/18 08:40 98.4 F 99 18 138/78 91 L 02/27/18 08:00 98.4 F 99 18 97 Weight Admit Weight 171 lb 12.8 oz Weight 171 lb 12.8 oz I&O: 02/26/18 02/27/18 02/28/18 06:59 06:59 06:59 Intake Total 1400 720 240 Output Total 2850 Balance -1450 720 240 Result Diagrams: 02/25/18 04:39 02/25/18 04:39 Additional Labs: Accuchecks 02/27/18 02/26/18 05:29 20:51 POC Glucose 110 104 Microbiology 02/21/18 18:00 Urine Straight Catheter Urine Culture - Final Escherichia coli 02/21/18 16:50 Stool - Pending Stool Occult Blood (AGUSTÍN) - Final Radiology Reviewed by me: Yes (PCXR - partial R hemidiaphragm elevation, chronic ) Phys Exam - Physical Examination Constitutional: NAD responsive, no distress HEENT: PERRLA, sclera anicteric, oral pharynx no lesions Neck: no nodes, no JVD, supple, full ROM Respiratory: no wheezing, no rales, no rhonchi, clear to auscultation bilateral Cardiovascular: RRR, no significant murmur, no rub, gallop Gastrointestinal: soft, non-tender, no distention, positive bowel sounds Musculoskeletal: no edema, pulses present Neurological: normal sensation, moves all 4 limbs Psychiatric: normal affect Skin: no rash, normal turgor, cap refill <2 seconds Deviation from normal: rodriguez with peach colored urine Dx/Plan (1) Acute blood loss anemia Code(s): D62 - ACUTE POSTHEMORRHAGIC ANEMIA Status: Acute Comment: Secondary to hematuria, s/p 1u PRBC's, serial H/H monitoring (2) Hematuria Code(s): R31.9 - HEMATURIA, UNSPECIFIED Status: Acute Comment: s/p CBI and bilat ureteral stent placements, slow improvement in hematuria (3) UTI (urinary tract infection) Status: Acute Comment: Continue Rocephin, may consider po option for d/c to SNF (4) DIDI (acute kidney injury) Code(s): N17.9 - ACUTE KIDNEY FAILURE, UNSPECIFIED Status: Acute Comment: Improved with Rodriguez catheter, avoid nephrotoxic agents and limit contrast exposure - Plan continue antibiotics, PT/OT, director of social services, DVT proph w/SCDs Stable currently -: Continue Rocephin 2gm IV daily -: PT for mobilization -: Plan for conversion to po abx on return to SNF -: Likely d/c to [facility] in 24h * .
[2018-02-27] MEDS: cefTRIAXone\\ROCEPHIN 2 GM, Admixture Fee 1 EACH in Sodium Chloride 0.9% 100 ML IVPB SCH (14:05)
[2018-02-27] MEDS: Famotidine 20 MG TAB PO SCH (19:36)
--- NOTE | 2018-02-27 19:41 | CON ---
DATE OF CONSULTATION: 02/27/2018 REASON FOR HOSPITAL ADMISSION: 1. Gross hematuria. 2. Bilateral hydronephrosis. HISTORY OF PRESENT ILLNESS: Ms. Carey Vaz is a very pleasant 87-year-old white female who h ad clot retention at presentation as well as bilateral hydronephrosis. She underwent cystourethrosco py and bilateral stent placement by Dr. Marely Vogel on 02/23/2018. She did have a 3-way Walton catheter placed at that time. The patient has been on Rocephin therapy since then, and has been doin g reasonably well. INTERVAL EVENTS: The patient has an ongoing and continuing cough. She has had a chest x-ray, which does not show any significant abnormalities. The patient is not reporting feeling sick or any other major issues today. Urine is draining appropriately in her Walton line and is clear. PHYSICAL EXAMINATION: VITAL SIGNS: Patient is afebrile. Temperature is 98.4, pulse 99, respirations 18, O2 saturations 91 % on room air with current blood pressure 138/78. HEENT: Extraocular movements are intact. Sclerae are anicteric. Oropharynx is clear. NECK: Supple. LUNGS: Clear to auscultation bilaterally. There may be a small systolic ejection murmur present. ABDOMEN: Soft, obese, and nontender. BACK: No point tenderness along the course of the spine. ABDOMEN: Soft and nontender. No suprapubic tenderness. GENITOURINARY: Walton catheter is in place and is draining straw-colored urine. There does not appea r to be any blood or particulates in the urine today. MUSCULOSKELETAL: The patient has ability to move all extremities against gravity. NEUROLOGIC: Gait was not assessed. The patient is not out of bed today. LABORATORY STUDIES: The patient has not had any interval hematologic evaluation and serum chemistrie s were not ordered. Her blood glucose is 110. The patient's BNP was checked yesterday and was 163. A chest x-ray was obtained yesterday and shows a part elevation of the right hemidiaphragm, but is ot herwise unremarkable. ASSESSMENT: General progress, especially with respect to hematuria. CURRENT ISSUES 1. Hematuria, nearly resolved. 2. Cough, persistent but apparently not due to pneumonia, possible bronchitis could be considered in this patient. Her cough does not appear to be significantly productive. She does have an elevated BNP. 3. : Current instrumentation, bilateral stents to each kidney and the bladder. 4. Indwelling 3-way Walton catheter with 3-way CBI irrigation turned off. Over 35 minutes of assessment time was spent assessing this patient today.
[2018-02-27] MEDS: Acetaminophen 325 MG TAB PO PRN (20:12)
[2018-02-27] MEDS: Melatonin 3 MG TAB PO SCH (20:14)
[2018-02-28] MEDS: Hyoscyamine Sulfate SL 0.125 mg Tablet SL SCH (02:58)
[2018-02-28 04:48] LABS: Hemoglobin 9.2 g/dL (12.0-16.0); Platelet Count 296 thou/uL (130-400)
[2018-02-28 08:27] VITALS: BP 125/75; TEMP 98.2
--- NOTE | 2018-02-28 08:27 | PRG ---
DATE OF SERVICE: 02/28/2018 SUBJECTIVE: The patient is resting comfortably. OBJECTIVE: VITAL SIGNS: Stable. She is afebrile. Her oral intake has improved nearly 1 liter over the last 24 hours. ABDOMEN: Soft, nontender, nondistended. PERTINENT LABORATORY DATA: 1. H&H is stable with hemoglobin of 9.2, previous white count is normalized, creatinine on 02/2013 is normalized from creatinine of 2.7 on admission to 1.0. 2. Urine culture demonstrating E. coli, 02/21/2018, pansensitive except to ampicillin. The patient has been on Rocephin and will be discharged with Omnicef. IMPRESSION AND PLAN: Ms. Vaz is an 87-year-old female with past medical history of autoimmune hepatitis on Imuran on hold since admission due to risk of sepsis. 1. Escherichia coli urinary tract infection. 2. Hemorrhagic cystitis, with trigonal clot retention, likely resulting in bilateral hydronephrosis, postop day #5 status post evacuation of clot, bilateral stents. The patient has done well over the weekend. Her oral intake is improved. Her anxiety is baseline. She is afebrile. She may be discharged back to inpatient rehab with indwelling urethral Walton catheter, Omnicef 300 mg 1 p.o. b.i.d. She may resume her Myrbetriq for bladder spasm. Levsin has been discontinued. She will come see me as an outpatient next Wednesday, pending reassessment. I will schedule her for staged ureteroscopy to rule out occult pathology. If ureteroscopy is negative, plan is stent pull electively after diagnostic ureteroscopy. Continue indwelling Walton catheter for now due to history of hematuria, clot retention, and small mucosal defect at the dome, likely from bladder irrigation to remove obstructing clots. 3. Please hold her Imuran as immunocompromised state can increase the risk of sepsis in an already elderly, frail female. Recheck UA and C&S prior to discharge, which I will follow up. MARY
[2018-02-28] MEDS: buPROPion HCl 100 MG TAB PO SCH (09:50)
[2018-02-28] MEDS: Fluticasone Propionate Nasal Spray 16 gm Bottle NASAL SCH (09:50)
[2018-02-28] MEDS: Loratadine 10 MG TAB PO SCH (09:50)
[2018-02-28] MEDS: traMADol HCl 50 MG TAB PO SCH (09:50)
[2018-02-28] MEDS: Azelastine 137 MCG/Spray 30 ML NS SCH (09:50)
[2018-02-28] MEDS: Gabapentin 300 MG CAP PO SCH (09:50)
[2018-02-28] MEDS: busPIRone HCl 10 MG TAB PO SCH (09:50)
[2018-02-28] MEDS: Propranolol HCl LA 60 MG CAP PO SCH (09:50)
[2018-02-28] MEDS: Docusate 100 MG CAP PO SCH (09:50)
[2018-02-28] MEDS: Artificial Tear Sol 15 ML BOT EA EYE SCH (09:50)
[2018-02-28 11:11] LABS: Bilirubin Negative (Negative); Blood, Urine Large (Negative); Clarity CLOUDY (Clear); Glucose, Urine (Dipstick) 100 mg/dL (Negative); Leukocyte Moderate (Negative); Nitrite Negative (Negative); Protein, Urine (Dipstick) 300 mg/dL (Neg-Trace); Specific Gravity, Urine 1.016 (1.002-1.036); Urobilinogen 0.2 mg/dL (0.2-1.0)
[2018-02-28 11:13] LABS: Bacteria/HPF None Seen HPF (None Seen); Hyaline Casts/LPF 0-3 HYALINE CAST LPF (0-3 Hyaline); Pathc Cast-AUWi Flag 0.72 (0-2.49); RBC/HPF GREATER THAN 50-TNTC HPF (0-3); Squamous Epithelial None Seen HPF (0-3)
--- NOTE | 2018-02-28 11:53 | DIS ---
DATE OF DISCHARGE: 02/28/2018 DISCHARGE DIAGNOSES: 1. Urinary tract infection with Escherichia coli. 2. Acute blood loss anemia secondarily to #3, status post 1 unit packed red blood cells. 3. Hemorrhagic cystitis, status post continuous bladder irrigation and evacuation of clot. 4. Status post bilateral ureteral stent placement. 5. Acute kidney injury, resolving. 6. Right ankle fracture status post open reduction internal fixation 01/2018. CONSULTATIONS: Dr. Vogel and Dr. White with Urology Service. PERTINENT LAB AND X-RAY FINDINGS: Creatinine ranged between 1.07-2.71, estimated GFR ranging between 17-49. BNP ranged between 58-163. Lipase 34. CBC showed a white blood cell count ranging between 8.9-12.3, hemoglobin ranged between 8.1-10.8. Urine culture dated 02/21/2018 showed greater than 100 ,000 colonies of E. coli. Stool Hemoccult 02/21/2018, positive x1. CT of the abdomen and pelvis dated 02/21/2018 showed hyperdense material layering posteriorly within the urinary bladder, 3 cm low density area in the right hemipelvis. No evidence for bowel obstructio n. Dilation of the right extrarenal pelvis and upper right ureter. Portable chest x-ray dated 02/22 showed no acute cardiopulmonary process. Urine cytology dated 02/23/2018 showed mild atypia wi th acute inflammation. Ureteral biopsy dated 02/23/2018 showed inflammatory cells without evidence o f malignancy. HOSPITAL COURSE: The patient was initially admitted after presenting with lower abdominal pain, unde rgoing extensive evaluation including CT of the abdomen and pelvis showing questionable hyperdense ma terial in the urinary bladder. The patient was noted with suspicion for clot retention and gross hem aturia with urine culture demonstrating E. coli. The patient was placed on broad spectrum antibiotic coverage until urine culture was confirming E. coli, pansensitive except for ampicillin. The patien t was also noted with gross hematuria, which the patient was evaluated by the Urology Service, radha burnett with a hemorrhagic cystitis. The patient underwent a cystoscopy with evacuation of clot and debr is as well as cystograms and bilateral retrograde placement of ureteral stents. The patient underwen t cytology evaluation showing no evidence of malignancy and the patient underwent Walton catheter plac ement for urinary retention and evacuation of remaining clot and debris in the bladder. The patient continued on IV Rocephin throughout the hospital course with overall stabilization. The patient did receive 1 unit of packed red blood cells during the hospital course with a low hemoglobin of 7.8 note d on 02/23/2018. Serial hemoglobin assessment posttransfusion showed overall stable values. Current recommendations per Urology are to continue Walton catheter for any residual clot retention and to fo llow up on an outpatient basis for determination of timing of removal. Overall, the patient did baltazar in clinically stable through the hospital course and was deemed appropriate to return to skilled [facility] care at [place]. I have examined the patient at the time of discharge and discussed followup i nstructions. The family has verbalized understanding and agreement and are ready for discharge on . DISCHARGE MEDICATIONS: 1. Omnicef 300 mg p.o. b.i.d. x7 days. 2. Azelastine 137 mcg 1 spray in each naris b.i.d. 3. Tessalon Perles 100 mg p.o. q.4 hour for hours p.r.n. 4. Bupropion 100 mg p.o. b.i.d. 5. BuSpar 15 mg p.o. t.i.d. 6. Refresh Tears 15 mL q.i.d. 7. Citrucel 1000 mg p.o. daily. 8. Vitamin D3 5000 units p.o. daily. 9. Colace 100 mg p.o. daily. 10. Farida 180 mg p.o. daily. 11. Gabapentin 300 mg p.o. b.i.d. 12. Lisinopril 5 mg p.o. daily, discontinue. 13. Melatonin, 5 mg p.o. at bedtime. 14. Myrbetriq extended release 25 mg p.o. daily. 15. Omeprazole 40 mg p.o. daily. 16. MiraLax 17 grams p.o. daily p.r.n. 17. Propranolol ER 60 mg p.o. daily. 18. Ultram 50 mg p.o. q.i.d. p.r.n. FOLLOWUP: The patient may follow up with Dr. Vogel on 03/07/2018 at 12:30 p.m. The patient wi ll follow up with Dr. French Nguyen within 7 days of discharge. CONDITION ON DISCHARGE: Fair. ACTIVITY: Ad nigel. Maximal assistance for range of motion exercises in bed. Nonweightbearing to rig ht lower extremity. SPECIAL INSTRUCTIONS: Continue Walton catheter until follow up with Urology Service. DIET: Regular. CODE STATUS: Full. DISPOSITION: Discharged to [facility] 02/28/2018. Total time preparing and coordinating discharge 35 minutes.
--- NOTE | 2018-03-09 11:34 | EKG ---
Test Reason : Blood Pressure : / mmHG Vent. Rate : 065 BPM Atrial Rate : 065 BPM P-R Int : 168 ms QRS Dur : 148 ms QT Int : 438 ms P-R-T Axes : 032 -12 087 degrees QTc Int : 455 ms Normal sinus rhythm Left bundle branch block Abnormal ECG Confirmed by LEIA MADSEN, LASHON ([id number]), map editor LACI LOZANO ([id number]) on 03/09/2018 11:33:47 AM Referred By: Confirmed By:LASHON DUPREE MD
== END 2018-02-28 12:40 | DRG 690 ==
LOC: ERS 16:23 → T4-B 18:21 → OBSVTOIN 02-22 14:31
PROVIDERS: ADMIT Internal Medicine; ATTEND Internal Medicine
PROC: 0T7D8DZ Dilation of Urethra with Intraluminal Device, Via Natural or Artificial Opening Endoscopic (ICD-10-PCS; principal; 2018-02-23)
PROC: 0T9B80Z Drainage of Bladder with Drainage Device, Via Natural or Artificial Opening Endoscopic (ICD-10-PCS; 2018-02-23)
PROC: 30233N1 Transfusion of Nonautologous Red Blood Cells into Peripheral Vein, Percutaneous Approach (ICD-10-PCS; 2018-02-23)
PROC: 3E1K88Z Irrigation of Genitourinary Tract using Irrigating Substance, Via Natural or Artificial Opening Endoscopic (ICD-10-PCS; 2018-02-23)
DX: N30.81 Other cystitis with hematuria (principal); D62 Acute posthemorrhagic anemia; N17.9 Acute kidney failure, unspecified; N13.6 Pyonephrosis; B96.20 Unspecified Escherichia coli [E. coli] as the cause of diseases classified elsewhere; S82.891D Other fracture of right lower leg, subsequent encounter for closed fracture with routine healing; X58.XXXD Exposure to other specified factors, subsequent encounter; Z86.19 Personal history of other infectious and parasitic diseases; J02.9 Acute pharyngitis, unspecified; G89.29 Other chronic pain; M54.9 Dorsalgia, unspecified; F32.9 Major depressive disorder, single episode, unspecified; K21.9 Gastro-esophageal reflux disease without esophagitis; Z85.820 Personal history of malignant melanoma of skin; F41.9 Anxiety disorder, unspecified; M19.90 Unspecified osteoarthritis, unspecified site; M81.0 Age-related osteoporosis without current pathological fracture
CPT/HCPCS: 36415; 36416; 36430; 51701; 71045; 74176; 74420; 80048; 80053; 81001; 81003; 81015; 82274; 82553; 83690; 83880; 84484; 85014; 85018; 85025; 85049; 85610; 85730; 86850; 86900; 86901; 87077; 87086; 87186; 88112; 88121; 88305; 88312; 93005; 93010; 96360; 96361; C1758; C1769; G8978-GP-CM; G8979-GP-CK; G8987-GO-CM; G8988-GO-CJ; J0696; J2001; J2270; J2543; J2704; J3010; J7050; P9016; Q9961; S0028

== ENCOUNTER 2018-03-07 13:10 | Outpatient (CLI) | payer MEDICARE, BC ==
[2018-03-07 14:09] LABS: Hemoglobin 11.2 g/dL (12.0-16.0); Mean Corpuscular HGB CONC 32.7 g/dL (32.0-36.0); Mean Corpuscular Hemoglobin 31.7 pg (27.0-31.0); Mean Corpuscular Volume 96.8 fL (78.0-98.0); Mean Platelet Volume 6.6 fL (7.4-10.4); Platelet Count 394 thou/uL (130-400); RBC Distribution Width 15.4 % (11.5-14.5); Red Blood Cell (RBC) Count 3.53 mill/uL (4.20-5.40); White Blood Cell (WBC) Count 8.5 thou/uL (4.8-10.8)
[2018-03-07 14:26] LABS: Anion Gap 15 mmol/L (10-20); BUN (Urea Nitrogen) 28 mg/dL (9.8-20.1); Calc. Creatinine Clearance 0 mL/min (70-130); Calcium 9.4 mg/dL (7.8-10.44); Carbon Dioxide 21 mmol/L (23-31); Chloride 102 mmol/L (98-107); Estimated GFR-MDRD 26; Glucose 103 mg/dL (83-110); Sodium 134 mmol/L (136-145)
--- NOTE | 2018-03-07 17:13 | EKG ---
Test Reason : Blood Pressure : / mmHG Vent. Rate : 062 BPM Atrial Rate : 062 BPM P-R Int : 158 ms QRS Dur : 088 ms QT Int : 412 ms P-R-T Axes : 057 009 078 degrees QTc Int : 418 ms Normal sinus rhythm Nonspecific ST abnormality Abnormal ECG When compared with ECG of 22-FEB-2018 13:39, No significant change was found Confirmed by ASHLEY MADSEN, STor ([id number]) on 03/07/2018 5:13:15 PM Referred By: MERLIN Confirmed By:DR. Derrell RAMIREZ MD
== END 2018-03-07 13:11 | disposition home or self-care (01) ==
LOC: LABBT 13:10
PROVIDERS: ATTEND Urology
DX: Z01.818 Encounter for other preprocedural examination (principal); N13.30 Unspecified hydronephrosis; R31.9 Hematuria, unspecified
CPT/HCPCS: 80048; 85027; 93005; 93010

== ENCOUNTER 2018-03-11 13:43 | Inpatient (IN) | payer MEDICARE, BC ==
[2018-03-11 14:47] LABS: Hemoglobin 11.3 g/dL (12.0-16.0); Mean Corpuscular HGB CONC 32.7 g/dL (32.0-36.0); Mean Corpuscular Hemoglobin 30.9 pg (27.0-31.0); Mean Corpuscular Volume 94.7 fL (78.0-98.0); Mean Platelet Volume 6.6 fL (7.4-10.4); Platelet Count 357 thou/uL (130-400); RBC Distribution Width 14.9 % (11.5-14.5); Red Blood Cell (RBC) Count 3.65 mill/uL (4.20-5.40); White Blood Cell (WBC) Count 5.5 thou/uL (4.8-10.8)
[2018-03-11 15:03] LABS: Eosinophils 10 % (0-10); Lymphocytes 16 % (21-51); MDiff Complete? YES; Monocytes 13 % (0-10); Neutrophil 59 % (42-75); PLT Morphology Comment Appears Adequate; Polychromasia SLIGHT = 2-3 cells (100X) (0-2/hpf); Reactive Lymphocytes 1 % (0-10)
[2018-03-11 15:04] LABS: ALT (SGPT) 12 U/L (8-55); AST (SGOT) 27 U/L (5-34); Albumin 3.5 g/dL (3.4-4.8); Alkaline Phosphatase 112 U/L (40-150); Anion Gap 17 mmol/L (10-20); BUN (Urea Nitrogen) 32 mg/dL (9.8-20.1); Bilirubin, Total 0.4 mg/dL (0.2-1.2); CK (CPK) 44 U/L (29-168); Calc. Creatinine Clearance 0 mL/min (70-130); Calcium 9.6 mg/dL (7.8-10.44); Carbon Dioxide 21 mmol/L (23-31); Chloride 101 mmol/L (98-107); Estimated GFR-MDRD 26; Glucose 92 mg/dL (83-110); Lipase 31 U/L (8-78); Potassium 4.6 mmol/L (3.5-5.1); Protein, Total 6.5 g/dL (6.0-8.3); Sodium 134 mmol/L (136-145)
[2018-03-11 15:14] LABS: CKMB 2.5 ng/mL (0-6.6); Troponin I 0.202 ng/mL (< 0.028)
[2018-03-11 15:14] LABS: Bilirubin Small (Negative); Blood, Urine Large (Negative); Clarity TURBID (Clear); Glucose, Urine (Dipstick) Negative (Negative); Leukocyte Large (Negative); Nitrite Negative (Negative); Protein, Urine (Dipstick) 300 mg/dL (Neg-Trace); Urobilinogen 0.2 mg/dL (0.2-1.0)
[2018-03-11 15:16] LABS: Squamous Epithelial None Seen HPF (0-3)
[2018-03-11 15:17] LABS: Pathc Cast-AUWi Flag 18.77 (0-2.49); Yeast-AUWi Flag 1022.8 (0-25.0)
[2018-03-11 15:26] LABS: Hyaline Casts/LPF 0-3 HYALINE CAST LPF (0-3 Hyaline); Other Casts/LPF None Seen LPF (0-3 Hyaline); RBC/HPF GREATER THAN 50-TNTC HPF (0-3)
[2018-03-11 15:27] LABS: Bacteria/HPF Rare-Few HPF (None Seen); Yeast-All Forms 1+ HPF (None Seen)
[2018-03-11] MEDS ORDERED: MEROPENEM 1 GM/50 ML 1 GM in Premix Bag 1 BAG IVPB SCH (16:30)
[2018-03-11] MEDS ORDERED: Ondansetron ODT 4 MG TAB SL PRN (18:56)
[2018-03-11] MEDS ORDERED: Ondansetron HCl/PF 4 MG/2 ML Vial IVP PRN (18:56)
[2018-03-11] MEDS ORDERED: HYDROcodone/Acetaminophen 5/325 mg Tablet PO PRN (20:16)
[2018-03-11 20:23] LABS: Troponin I 0.208 ng/mL (< 0.028)
[2018-03-11] MEDS ORDERED: Milk Of Magnesia 30 ML UDCUP PO PRN (20:25)
[2018-03-11] MEDS ORDERED: Benzonatate 100 MG CAP PO PRN (20:25)
[2018-03-11] MEDS ORDERED: Enoxaparin Sodium 80 MG/0.8 ML SYRINGE SC SCH (21:00)
[2018-03-11] MEDS: Gabapentin 300 MG CAP PO SCH (21:01)
[2018-03-11] MEDS: buPROPion HCl 100 MG TAB PO SCH (21:01)
[2018-03-11] MEDS: Melatonin 3 MG TAB PO SCH (21:02)
[2018-03-11] MEDS: busPIRone HCl 10 MG TAB PO SCH (21:02)
[2018-03-11] MEDS: Famotidine 20 MG TAB PO SCH (21:02)
[2018-03-11] MEDS: Carvedilol 3.125 MG TAB PO SCH (21:02)
[2018-03-11] MEDS: Sodium Chloride 0.9% 1,000 ML IV SCH (21:04)
[2018-03-11] MEDS: traMADol HCl 50 MG TAB PO SCH (21:05)
--- NOTE | 2018-03-12 00:07 | HP ---
DATE OF ADMISSION: 03/11/2018 CHIEF COMPLAINT: Weakness. HISTORY OF PRESENT ILLNESS: This is an 87-year-old white female, a resident of a group home. She presented to the hospital as she was feeling very weak and lethargic for the past few days with no ev idence of any fever, but she had a temperature of 99.6 according to her patient's friend, who is at t he bedside. She said the patient usually runs very low temperatures at this is more of a fever for h er. The patient has an indwelling catheter from Dr. Vogel and has a bilateral ureteric stents placed in 02/22 last of this year and the patient has been closely monitored because of recurrent uri nary tract infections. The patient came to the ER and she is noted to have a filemon UTI, most likely secondary to indwelling catheter and was severely dehydrated with a markedly elevated creatinine and BUN. She also had elevated troponin of 0.2 but she denied having any chest pains, no nausea, no vomi ting, no diarrhea, no constipation. PAST MEDICAL HISTORY: 1. Gastroesophageal reflux disease. 2. Denied urinary problems with poor bladder control. 3. History of skin cancer. PAST SURGICAL HISTORY: Appendectomy, hysterectomy, tonsillectomy, and skin tag removal. SOCIAL HISTORY: The patient is not a nonsmoker. She lives in a nursing facility. No history of alc ohol, no history of illicit drug use. ALLERGIES: CIPROFLOXACIN, PORK, SILICONE, AND TOMATO. FAMILY HISTORY: Noncontributing, but this has been reviewed. REVIEW OF SYSTEMS: All 12 systems reviewed with the patient thoroughly and found to be negative at t his time except the ones described in HPI. The following complete review of systems was negative, unless otherwise mentioned in the HPI or below: Constitutional: Weight loss or gain, sense of well-being, ability to conduct usual activities, exerc ise tolerance. Skin/Breast: Rash, itching, changes in hair growth or loss, nail changes, breast lumps, tenderness, swelling, nipple discharge. Eyes: Vision, double vision, tearing, blind spots, pain. ENT/Mouth: Headaches (location, time of onset, duration, precipitating factors), vertigo, lightheade dness, injury. Vision, double vision, tearing, blind spots, pain, nose bleeding, colds, obstruction, discharge, dental difficulties, gingival bleeding, dentures, neck stiffness, pain, tenderness, masses in thyroid or other areas. Cardiovascular: Precordial pain, substernal distress, palpitations, syncope, dyspnea on exertion, or thopnea, nocturnal paroxysmal dyspnea, edema, cyanosis, hypertension, heart murmurs, varicosities, ph lebitis, claudication. Respiratory: Pain, shortness of breath, wheezing, stridor, cough, hemoptysis, fever or night sweats. Gastrointestinal: Poor appetite, dysphagia, indigestion, abdominal pain, heartburn, eructation, naus ea, vomiting, hematemesis, jaundice, constipation, or diarrhea, abnormal stools (estela-colored, tarry, bloody, greasy, foul smelling), flatulence, hemorrhoids, recent changes in bowel habits. Genitourinary: Urgency, frequency, dysuria, nocturia, hematuria, polyuria, oliguria, unusual (or robi nge in) color of urine, stones, hesitancy, change in size of stream, dribbling, acute retention or in continence, libido, potency. Musculoskeletal: Pain, swelling, redness or heat of muscles or joints, limitation, of motion, muscular weakness, atrophy, cramps. Neurologic/Psychiatric: Convulsions, paralyses, tremor, incoordination, parasthesias, difficulties w ith memory of speech, sensory or motor disturbances, or muscular coordination (ataxia, tremor), emoti onal problems, anxiety, depression, previous psychiatric care, unusual perceptions, hallucinations. Allergy/Immunologic: Skin rash, anemia, bleeding tendency, polydipsia, polyuria, intolerance to heat or cold. HOME MEDICATIONS: 1. . 2. Benzonatate 100 mg p.o. q.4 hours. 3. Bupropion 100 mg p.o. b.i.d. 4. Buspirone 15 mg p.o. t.i.d. 5. Citrucel 1000 mg p.o. daily. 6. Cholecalciferol 5000 units p.o. daily. 7. Docusate 100 mg p.o. daily. 8. Fexofenadine 180 mg p.o. daily. 9. Gabapentin 300 mg p.o. daily. 10. Lisinopril 5 mg p.o. daily. 11. Magnesium p.o. daily. 12. Melatonin 5 mg p.o. at bedtime. 13. . 14. Omeprazole 40 mg p.o. daily. 15. Polyethylene glycol. 16. Propranolol 60 mg p.o. daily. 17. Ranitidine 150 mg. 18. Tramadol 50 mg p.o. q.8 hours. PHYSICAL EXAMINATION: VITAL SIGNS: Blood pressure 156/69, heart rate is 82, respiratory rate is 18, saturation 100%. GENERAL: The patient is moderately built and moderately nourished, does not appear to be in acute di stress at this time, alert, oriented x3. HEENT: Atraumatic, normocephalic. PERRLA. Extraocular muscles were intact. Oral mucosa is pink an d moist. CARDIOVASCULAR: S1, S2 normal. No murmurs, rubs or gallops. LUNGS: Bilateral entry was equal. No wheezing, no crackles. ABDOMEN: Soft, nontender. No guarding or rebound tenderness. Bowel sounds normal. MUSCULOSKELETAL: No calf tenderness. No pedal edema. EXTREMITIES: No joint tenderness, no joint swelling. SKIN: No signs of erythema, no rash, no pallor. CRANIAL NERVOUS SYSTEM: Cranial examination II though XII intact. No focal deficits were noted. LABORATORY DATA: WBC 5.5, hemoglobin is 11.3, hematocrit is 34.6, platelets 357. Sodium 135, potass ium 4.6, chloride 101, bicarbonate is 21, BUN is 32, creatinine 1.84. Troponin 0.202, repeat troponi n 0.208. Chest x-ray was unremarkable. UA was positive for urinary tract infection. ASSESSMENT AND PLAN: 1. Acute urinary tract infection. 2. Non-ST elevation myocardial infarction. 3. Hypertension. 4. History of ureteric stents. 5. Indwelling urinary catheter. PLAN: 1. Plan is to closely monitor this patient for worsening sepsis. We will start the patient on merop enem 1 gram IV q.8 hours as the patient has indwelling catheter and high risk for worsening sepsis. 2. The patient has moderately severe dehydration. We will start the patient on normal saline at 100 mL an hour and we will closely monitor the urine output. 3. The patient has elevated troponins as persistently being elevated, most likely could be the reaso n for lethargy and weakness. Need to further evaluate at this time. We will do Lovenox therapeutic dosing with 1 mg/kg and continue with aspirin and beta connor and statins. We will get a 2D echo in the morning to look for wall motion abnormalities. 4. We will consult Cardiology in the morning for further evaluation. 5. Patient history of indwelling urinary catheter and with ureteral stents. We will consult Dr. Ulisses brooks for further management for the urinary tract infection. 6. DVT prophylaxis. Lovenox therapeutic dosing I spent 75 minutes with this patient.
[2018-03-12] MEDS ORDERED: MEROPENEM 1 GM/50 ML 1 GM in Premix Bag 1 BAG IVPB SCH (01:00)
[2018-03-12] MEDS: MEROPENEM 1 GM/50 ML 1 GM in Premix Bag 1 BAG IVPB SCH ×2 (04:16→17:22)
[2018-03-12 05:14] LABS: Anion Gap 12 mmol/L (10-20); BUN (Urea Nitrogen) 28 mg/dL (9.8-20.1); Calc. Creatinine Clearance 34 mL/min (70-130); Calcium 8.7 mg/dL (7.8-10.44); Carbon Dioxide 22 mmol/L (23-31); Cardiac Risk 4.5 (Less than 4.5); Chloride 108 mmol/L (98-107); Cholesterol 143 mg/dl (< 200 Desired); Estimated GFR-MDRD 34; Glucose 81 mg/dL (83-110); HDL Cholesterol 32 mg/dL (>60 Neg Risk); LDL Cholesterol, Calculated 91 mg/dL; Potassium 3.9 mmol/L (3.5-5.1); Sodium 138 mmol/L (136-145); Triglycerides 98 mg/dL (Less than 150)
[2018-03-12 05:48] LABS: Hemoglobin 9.7 g/dL (12.0-16.0); Mean Corpuscular HGB CONC 32.6 g/dL (32.0-36.0); Mean Corpuscular Hemoglobin 31.4 pg (27.0-31.0); Mean Corpuscular Volume 96.4 fL (78.0-98.0); Mean Platelet Volume 6.6 fL (7.4-10.4); Platelet Count 316 thou/uL (130-400); RBC Distribution Width 15.1 % (11.5-14.5); Red Blood Cell (RBC) Count 3.08 mill/uL (4.20-5.40); White Blood Cell (WBC) Count 5.4 thou/uL (4.8-10.8)
[2018-03-12 05:49] LABS: Band 1 % (5-11); Eosinophils 3 % (0-10); Hypochromia SLIGHT = 6-15 cells (100X) (0-5/hpf); Lymphocytes 20 % (21-51); MDiff Complete? YES; Monocytes 18 % (0-10); Neutrophil 58 % (42-75); PLT Morphology Comment Appears Adequate
[2018-03-12] MEDS: Sodium Chloride 0.9% 1,000 ML IV SCH ×2 (07:05→17:24)
[2018-03-12] MEDS ORDERED: Prevnar 13-Val Conj/PF 0.5 ML SYRINGE IM ONE (09:00)
[2018-03-12] MEDS ORDERED: Non-Formulary Item 1 EACH (Omeprazole [Omeprazole] 40 MG) PO SCH (09:00)
[2018-03-12] MEDS ORDERED: Aspirin 325 MG TAB PO SCH (09:00)
[2018-03-12] MEDS ORDERED: Docusate 100 MG CAP PO SCH (09:00)
[2018-03-12] MEDS ORDERED: Non-Formulary Item 1 EACH (Fexofenadine Hcl [Allegra Allergy] 180 MG) PO SCH (09:00)
[2018-03-12] MEDS: Citrucel 500 MG TAB PO SCH (09:59)
[2018-03-12] MEDS: busPIRone HCl 10 MG TAB PO SCH ×3 (09:59→20:04)
[2018-03-12] MEDS: azaTHIOprine 50 MG TAB PO SCH (09:59)
[2018-03-12] MEDS: buPROPion HCl 100 MG TAB PO SCH ×2 (10:04→20:04)
[2018-03-12] MEDS: Carvedilol 3.125 MG TAB PO SCH (10:05)
[2018-03-12] MEDS: Loratadine 10 MG TAB PO SCH (10:06)
[2018-03-12] MEDS: Gabapentin 300 MG CAP PO SCH ×2 (10:06→20:04)
[2018-03-12] MEDS: Lisinopril 5 MG TAB PO SCH (10:06)
[2018-03-12] MEDS: Propranolol HCl LA 60 MG CAP PO SCH (10:07)
[2018-03-12] MEDS: traMADol HCl 50 MG TAB PO SCH (10:08)
[2018-03-12] MEDS: Polyethylene Glycol 3350 17 GM Packet PO SCH (10:09)
[2018-03-12] MEDS ORDERED: traMADol HCl 50 MG TAB PO PRN (11:40)
--- NOTE | 2018-03-12 13:50 | ULT ---
BILATERAL LOWER EXTREMITY VENOUS DUPLEX ULTRASOUND INCLUDING COLOR AND SPECTRAL DOPPLER IMAGING: HISTORY: An 87-year-old female with bilateral lower extremity pain and recent immobilization. TECHNIQUE: Exam performed from groin to ankle, including visualized greater saphenous, common femoral, superfici al femoral, profunda femoral, popliteal, trifurcation, and posterior tibial vein regions. FINDINGS: There is intraluminal thrombus with partial or incomplete compression involving the right common femo ral vein and right profunda femoral vein. on the left side, there is occlusive thrombus in the popli teal vein, with no compressibility. The right posterior tibial vein region cannot be evaluated becau se of a cast on that side. IMPRESSION: Evidence for bilateral deep venous thrombosis, as above. Jessica, the communications technologist, contacted Nurse Phillips and informed her of these abnormal finding s at the time of this dictation. CODE CR POS: [place]
--- NOTE | 2018-03-12 14:55 | CON ---
DATE OF CONSULTATION: 03/12/2018 REASON FOR CONSULTATION: Indeterminate troponin. REFERRING PROVIDER: Dr. Paz. HISTORY OF PRESENT ILLNESS: Ms. Vaz is a very pleasant 87-year-old woman who is a patient of Dr Tor Valle. Upon my evaluation, she states she is unsure why she is in the hospital. Based o n the notes, it appears she was here for weakness. No chest pain, pressure, shortness of breath or a ssociated symptoms. Her creatinine was also elevated at 1.47. Patient did have a recent lower extre mity duplex suggesting bilateral DVTs. PAST MEDICAL HISTORY: Acid reflux, skin cancer. PAST SURGICAL HISTORY: Appendectomy, hysterectomy, and tonsillectomy. SOCIAL HISTORY: No current tobacco or alcohol use. ALLERGIES: CIPRO, PORK and SILICONE. FAMILY HISTORY: Negative. REVIEW OF SYSTEMS: Ten-point review of systems reviewed and as above, otherwise negative. PHYSICAL EXAMINATION: GENERAL: Patient is a pleasant female who is in no acute distress. The patient appears her stated a ge. She does appear weak. VITAL SIGNS: Blood pressure 120/61, pulse 71, temperature 98.5. NEUROLOGIC: The patient is alert and oriented times 3 with no focal neurologic deficits. HEENT: Sclerae without icterus. Mouth has moist mucous membranes with normal pallor. NECK: No JVD. Carotid upstroke brisk. No bruits bilaterally. LUNGS: Clear to auscultation with unlabored respirations. BACK: No scoliosis or kyphosis. CARDIAC: Regular rate and rhythm with normal S1 and S2. No S3 or S4 noted. No significant rubs, mu rmurs, thrills, or gallops noted throughout the precordium. PMI is not displaced. There is no nancy ternal heave. ABDOMEN: Soft, nontender, nondistended. No peritoneal signs present. No hepatosplenomegaly. No ab normal striae. EXTREMITIES: 2+ femoral and 2+ dorsalis pedis pulses. No cyanosis, clubbing, or edema. SKIN: No gross abnormalities. PERTINENT LABORATORY DATA: Hemoglobin 9.7, creatinine 1.45 with a GFR of 34. Peak troponin 0.2. IMPRESSION: 1. Bilateral deep venous thrombosis. 2. Elevated troponin. 3. Chronic kidney disease. 4. Weakness. RECOMMENDATIONS: From a CV standpoint, Ms. Vaz's elevated troponin could likely represent a pul monary embolism. This may also be exacerbated by increasing creatinine and a low GFR. At this point , I recommend conservative therapy. She has been placed on Lovenox appropriately. She would likely benefit from novel oral anticoagulation therapy. We will leave the discretion to primary team. Echo with Doppler is pending and we will review.
--- NOTE | 2018-03-12 19:20 | PDOC.PN ---
- Subjective Encounter Start Date: 03/12/18 Encounter Start Time: 11:10 Patient seen and examined for Gen weakness/Elevated troponins. No CP/SOB. No overnight events - Objective Resuscitation Status: Resuscitation Status FULL:Full Resuscitation Vital Signs & Weight: Vital Signs (12 hours) Temp Pulse Resp BP Pulse Ox 03/12/18 16:00 98.2 F 71 16 125/59 L 97 03/12/18 12:48 98.5 F 71 16 128/61 97 03/12/18 10:06 69 03/12/18 08:00 98.5 F 71 16 93 L Weight Admit Weight 169 lb Weight 169 lb 15.622 oz I&O: 03/11/18 03/12/18 03/13/18 06:59 06:59 06:59 Intake Total 826 1787 Output Total 400 525 Balance 426 1262 Result Diagrams: 03/12/18 04:29 03/12/18 04:29 Additional Labs: Laboratory Tests 03/11/18 03/11/18 03/11/18 14:58 19:50 22:48 BUN Creatinine Troponin I 0.208 H 0.190 H Urine RBC GREATER THAN 50-TNTC H Urine WBC Greater Than 50-TNTC H 03/12/18 04:29 BUN 28 H Creatinine 1.45 H Troponin I Urine RBC Urine WBC Radiology Reviewed by me: No (DVT - B/L LE DVT) EKG Reviewed by me: Yes (Tele SR) Phys Exam - Physical Examination Constitutional: NAD Respiratory: no wheezing, no rhonchi Scat rales at bases, Symmetrical Cardiovascular: RRR, no rub No heaves/pulsations Gastrointestinal: soft, non-tender, no distention, positive bowel sounds Musculoskeletal: edema present (1+ with B/L LE tenderness) Neurological: non-focal, moves all 4 limbs Dx/Plan - Plan DVT proph w/lovenox IMPRESSION: Gen weakness B/L LE DVT Elevated troponins - prob due to ?Pulmonary embolism UTI Recent Hemorrhagic cystitis/Ecoli UTI s/p PRBC and stent placement DIDI on CKD 3 Chronic Anemia Recent Rt ankle surgery (01/31) Physical deconditioning h/o Autoimmune hepatitis PLAN: B/L LE Doppler - done Cont Lovenox - dose adjusted for renal function DC Coreg (Patient already on Propanolol) Change ASA to 81 mg/d Cont Atbx Await urine cultures AM labs Review of Systems - Review of Systems Respiratory: negative: Cough, Dry, Shortness of Breath, Hemoptysis, SOB with Excertion, Pleuritic Pain, Sputum, Wheezing Cardiovascular: negative: chest pain, palpitations, orthopnea, paroxysmal nocturnal dyspnea, edema, light headedness, other - Medications/Allergies Allergies/Adverse Reactions: Allergies Allergy/AdvReac Type Severity Reaction Status Date / Time ciprofloxacin HCl Allergy Unknown Verified 03/11/18 21:37 [From Cipro] Pork/Porcine Containing Allergy Verified 03/11/18 21:37 Products tomato [Tomato] Allergy Verified 03/11/18 21:37 SILICONE Allergy Mild Uncoded 03/11/18 21:37 Medications: Current Medications Acetaminophen (Tylenol) 650 mg PO Q4H PRN PRN Reason: Headache/Fever or Pain Hydrocodone Bitart/Acetaminophen ([place] 5/325) 1 tab PO Q4H PRN PRN Reason: Moderate Pain (4-6) Aspirin (Ecotrin) 81 mg PO DAILY [facility] Azathioprine (Imuran) 50 mg PO DAILY [facility] Last Admin: 03/12/18 09:59 Dose: 50 mg Benzonatate (Tessalon) 100 mg PO Q4H PRN PRN Reason: Cough Bupropion HCl (Wellbutrin) 100 mg PO BID [facility] Last Admin: 03/12/18 10:04 Dose: 100 mg Buspirone HCl (Buspar) 15 mg PO TID [facility] Last Admin: 03/12/18 16:05 Dose: 15 mg Cholecalciferol (Vitamin D3) 5,000 units PO DAILY [facility] Last Admin: 03/12/18 10:05 Dose: 5,000 units Docusate Sodium (Colace) 100 mg PO DAILY [facility] Last Admin: 03/12/18 10:06 Dose: 100 mg Enoxaparin Sodium (Lovenox) 80 mg SC 2100 [facility] Famotidine (Pepcid) 20 mg PO QPM [facility] Last Admin: 03/11/18 21:02 Dose: 20 mg Gabapentin (Neurontin) 300 mg PO BID [facility] Last Admin: 03/12/18 10:06 Dose: 300 mg Sodium Chloride (Normal Saline 0.9%) 1,000 mls @ 100 mls/hr IV .Q10H [facility] Last Admin: 03/12/18 17:24 Dose: 1,000 mls Meropenem 1 gm/ Device 50 mls @ 200 mls/hr IVPB 0500,1700 [facility] Last Admin: 03/12/18 17:22 Dose: 50 mls Lisinopril (Zestril) 5 mg PO DAILY [facility] Last Admin: 03/12/18 10:06 Dose: 5 mg Loratadine (Claritin) 10 mg PO DAILY [facility] Last Admin: 03/12/18 10:06 Dose: 10 mg Magnesium Hydroxide (Milk Of Magnesium) 30 ml PO DAILY PRN PRN Reason: Constipation Melatonin (Melatonin) 6 mg PO HS [facility] Last Admin: 03/11/18 21:02 Dose: 6 mg Methylcellulose (Citrucel) 1,000 mg PO DAILY [facility] Last Admin: 03/12/18 09:59 Dose: 1,000 mg Mirabegron (Myrbetriq Er) 25 mg PO DAILY [facility] Last Admin: 03/12/18 10:06 Dose: 25 mg Pantoprazole Sodium (Protonix) 40 mg PO DAILY [facility] Last Admin: 03/12/18 10:07 Dose: 40 mg Polyethylene Glycol (Miralax) 17 gm PO Q2DAYS [facility] Last Admin: 03/12/18 10:09 Dose: Not Given Propranolol HCl (Inderal La) 60 mg PO DAILY [facility] Last Admin: 03/12/18 10:07 Dose: 60 mg Sodium Chloride (Flush - Normal Saline) 10 ml IVF Q12HR [facility] Last Admin: 03/12/18 10:29 Dose: Not Given Sodium Chloride (Flush - Normal Saline) 10 ml IVF PRN PRN PRN Reason: Saline Flush Tramadol HCl (Ultram) 50 mg PO Q6H PRN PRN Reason: Pain
[2018-03-12] MEDS: Famotidine 20 MG TAB PO SCH (20:04)
[2018-03-12] MEDS: Melatonin 3 MG TAB PO SCH (20:04)
[2018-03-12] MEDS: Enoxaparin Sodium 80 MG/0.8 ML SYRINGE SC SCH (20:04)
[2018-03-12] MEDS: Senokot S 8.6-50 MG TAB PO SCH (20:04)
[2018-03-12] MEDS: Acetaminophen 325 MG TAB PO PRN (20:09)
[2018-03-13] MEDS: Sodium Chloride 0.9% 1,000 ML IV SCH ×2 (04:06→14:38)
[2018-03-13] MEDS: MEROPENEM 1 GM/50 ML 1 GM in Premix Bag 1 BAG IVPB SCH (04:06)
[2018-03-13 08:54] LABS: #Basophils 0.1 thou/uL (0.0-0.2); #Eosinphils 0.6 thou/uL (0.0-0.7); #Lymphocytes 1.2 thou/uL (1.20-3.40); #Monocytes 0.8 thou/uL (0.11-0.59); #Neutrophils 2.9 thou/uL (1.40-6.50); %Basophils 1.1 % (0.0-1.0); %Lymphocytes 21.4 % (21.0-51.0); %Neutrophils 52.5 % (42.0-75.0); Hemoglobin 9.5 g/dL (12.0-16.0); Mean Corpuscular HGB CONC 31.7 g/dL (32.0-36.0); Mean Corpuscular Hemoglobin 30.7 pg (27.0-31.0); Mean Corpuscular Volume 96.9 fL (78.0-98.0); Mean Platelet Volume 6.9 fL (7.4-10.4); Platelet Count 282 thou/uL (130-400); White Blood Cell (WBC) Count 5.4 thou/uL (4.8-10.8)
[2018-03-13 09:09] LABS: ALT (SGPT) 9 U/L (8-55); AST (SGOT) 17 U/L (5-34); Albumin 2.8 g/dL (3.4-4.8); Alkaline Phosphatase 79 U/L (40-150); Anion Gap 13 mmol/L (10-20); BUN (Urea Nitrogen) 16 mg/dL (9.8-20.1); Bilirubin, Total 0.3 mg/dL (0.2-1.2); Calc. Creatinine Clearance 42 mL/min (70-130); Calcium 8.6 mg/dL (7.8-10.44); Carbon Dioxide 20 mmol/L (23-31); Chloride 111 mmol/L (98-107); Estimated GFR-MDRD 44; Globulin 2.2 g/dL (2.4-3.5); Glucose 83 mg/dL (83-110); Magnesium 1.6 mg/dL (1.6-2.6); Potassium 3.8 mmol/L (3.5-5.1); Sodium 140 mmol/L (136-145)
[2018-03-13 09:19] LABS: Phosphorus 1.9 mg/dL (2.3-4.7)
[2018-03-13] MEDS ORDERED: K-Phos Neutral 250 MG TAB PO SCH ×2 (09:30→09:45)
[2018-03-13] MEDS: Propranolol HCl LA 60 MG CAP PO SCH (10:27)
[2018-03-13] MEDS: Aspirin 81 mg Enteric Coated Tablet PO SCH (10:28)
[2018-03-13] MEDS: azaTHIOprine 50 MG TAB PO SCH (10:28)
[2018-03-13] MEDS: busPIRone HCl 10 MG TAB PO SCH ×3 (10:28→21:08)
[2018-03-13] MEDS: Loratadine 10 MG TAB PO SCH (10:28)
[2018-03-13] MEDS: buPROPion HCl 100 MG TAB PO SCH ×2 (10:28→21:09)
[2018-03-13] MEDS: Senokot S 8.6-50 MG TAB PO SCH ×2 (10:28→21:09)
[2018-03-13] MEDS: Lisinopril 5 MG TAB PO SCH (10:29)
[2018-03-13] MEDS: Gabapentin 300 MG CAP PO SCH ×2 (10:29→21:09)
[2018-03-13] MEDS: Citrucel 500 MG TAB PO SCH (10:30)
--- NOTE | 2018-03-13 12:11 | PDOC.PN ---
- Subjective Encounter Start Date: 03/13/18 Encounter Start Time: 08:30 Patient seen and examined for DVT/UTI. Intermittent confusion. No new complaints. No overnight events - Objective Resuscitation Status: Resuscitation Status FULL:Full Resuscitation MAR Reviewed: Yes Vital Signs & Weight: Vital Signs (12 hours) Temp Pulse Pulse Pulse Pulse Resp BP 03/13/18 10:29 73 133/58 L 03/13/18 09:24 74 85 73 03/13/18 08:00 98.9 F 74 16 03/13/18 07:51 98.9 F 74 16 03/13/18 05:37 03/13/18 04:11 99.4 F 70 16 BP BP BP BP Pulse Ox 03/13/18 10:29 03/13/18 09:24 135/63 133/66 133/58 L 03/13/18 08:00 98 03/13/18 07:51 124/72 98 03/13/18 05:37 96 03/13/18 04:11 144/66 H 96 Weight Admit Weight 169 lb Weight 169 lb 1.6 oz I&O: 03/12/18 03/13/18 03/14/18 06:59 06:59 06:59 Intake Total 826 2876 Output Total 400 1275 Balance 426 1601 Result Diagrams: 03/13/18 08:28 03/13/18 08:28 Radiology Reviewed by me: No (Echo - normal EF) EKG Reviewed by me: Yes (Tele SR) Phys Exam - Physical Examination Constitutional: NAD Respiratory: no wheezing, no rhonchi Cardiovascular: RRR, no rub Gastrointestinal: soft, positive bowel sounds Musculoskeletal: no edema Neurological: moves all 4 limbs Dx/Plan - Plan DVT proph w/lovenox IMPRESSION: Gen weakness/Toxic Metabolic Encephalopathy B/L LE DVT - on Lovenox Elevated troponins - prob due to ?Pulmonary embolism UTI due to Yeast Hypophosphatemia Recent Hemorrhagic cystitis/Ecoli UTI and stent placement DIDI on CKD 3 - improving Chronic Anemia s/p recent PRBC Recent Rt ankle surgery (01/31) Physical deconditioning h/o Autoimmune hepatitis PLAN: DC Meropenem Add Fluconazole for Yeast UTI Cont Lovenox - dose adjusted for renal function - 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 ?Warfarin AM labs Replace Phosphorus Reduce IVF to 70 ml/hr Review of Systems - Review of Systems Respiratory: negative: Cough, Dry, Shortness of Breath, Hemoptysis, SOB with Excertion, Pleuritic Pain, Sputum, Wheezing Cardiovascular: negative: chest pain, palpitations, orthopnea, paroxysmal nocturnal dyspnea, edema, light headedness, other - Medications/Allergies Allergies/Adverse Reactions: Allergies Allergy/AdvReac Type Severity Reaction Status Date / Time ciprofloxacin HCl Allergy Unknown Verified 03/11/18 21:37 [From Cipro] Pork/Porcine Containing Allergy Verified 03/11/18 21:37 Products tomato [Tomato] Allergy Verified 03/11/18 21:37 SILICONE Allergy Mild Uncoded 03/11/18 21:37 Medications: Current Medications Acetaminophen (Tylenol) 650 mg PO Q4H PRN PRN Reason: Headache/Fever or Pain Last Admin: 03/12/18 20:09 Dose: 650 mg Hydrocodone Bitart/Acetaminophen (Wagner 5/325) 1 tab PO Q4H PRN PRN Reason: Moderate Pain (4-6) Aspirin (Ecotrin) 81 mg PO DAILY [facility] Last Admin: 03/13/18 10:28 Dose: 81 mg Azathioprine (Imuran) 50 mg PO DAILY [facility] Last Admin: 03/13/18 10:28 Dose: 50 mg Benzonatate (Tessalon) 100 mg PO Q4H PRN PRN Reason: Cough Bupropion HCl (Wellbutrin) 100 mg PO BID [facility] Last Admin: 03/13/18 10:28 Dose: 100 mg Buspirone HCl (Buspar) 15 mg PO TID [facility] Last Admin: 03/13/18 10:28 Dose: 15 mg Cholecalciferol (Vitamin D3) 5,000 units PO DAILY [facility] Last Admin: 03/13/18 10:29 Dose: 5,000 units Enoxaparin Sodium (Lovenox) 80 mg SC 2100 [facility] Last Admin: 03/12/18 20:04 Dose: 80 mg Famotidine (Pepcid) 20 mg PO QPM [facility] Last Admin: 03/12/18 20:04 Dose: 20 mg Fluconazole (Diflucan) 100 mg PO BID [facility] Fluconazole (Diflucan) 100 mg PO ONE [facility] Gabapentin (Neurontin) 300 mg PO BID [facility] Last Admin: 03/13/18 10:29 Dose: 300 mg Sodium Chloride (Normal Saline 0.9%) 1,000 mls @ 70 mls/hr IV .[id number] [facility] Lisinopril (Zestril) 5 mg PO DAILY [facility] Last Admin: 03/13/18 10:29 Dose: 5 mg Loratadine (Claritin) 10 mg PO DAILY [facility] Last Admin: 03/13/18 10:28 Dose: 10 mg Magnesium Hydroxide (Milk Of Magnesium) 30 ml PO DAILY PRN PRN Reason: Constipation Melatonin (Melatonin) 6 mg PO HS [facility] Last Admin: 03/12/18 20:04 Dose: 6 mg Methylcellulose (Citrucel) 1,000 mg PO DAILY [facility] Last Admin: 03/13/18 10:30 Dose: 1,000 mg Mirabegron (Myrbetriq Er) 25 mg PO DAILY [facility] Last Admin: 03/13/18 10:28 Dose: 25 mg Pantoprazole Sodium (Protonix) 40 mg PO DAILY [facility] Last Admin: 03/13/18 10:29 Dose: 40 mg Phosphorus (Kphos Neutral) 250 mg PO TID-[facility] Polyethylene Glycol (Miralax) 17 gm PO Q2DAYS [facility] Last Admin: 03/12/18 10:09 Dose: Not Given Propranolol HCl (Inderal La) 60 mg PO DAILY [facility] Last Admin: 03/13/18 10:27 Dose: 60 mg Senna/Docusate Sodium (Senokot S) 1 tab PO BID [facility] Last Admin: 03/13/18 10:28 Dose: 1 tab Sodium Chloride (Flush - Normal Saline) 10 ml IVF Q12HR [facility] Last Admin: 03/13/18 10:30 Dose: Not Given Sodium Chloride (Flush - Normal Saline) 10 ml IVF PRN PRN PRN Reason: Saline Flush Tramadol HCl (Ultram) 50 mg PO Q6H PRN PRN Reason: Pain
[2018-03-13] MEDS ORDERED: Fluconazole 100 MG TAB PO SCH (12:15)
[2018-03-13] MEDS: K-Phos Neutral 250 MG TAB PO SCH ×2 (12:20→16:04)
[2018-03-13] MEDS: Melatonin 3 MG TAB PO SCH (21:08)
[2018-03-13] MEDS: Acetaminophen 325 MG TAB PO PRN (21:08)
[2018-03-13] MEDS: Enoxaparin Sodium 80 MG/0.8 ML SYRINGE SC SCH (21:08)
[2018-03-13] MEDS: Fluconazole 100 MG TAB PO SCH (21:09)
[2018-03-13] MEDS: Famotidine 20 MG TAB PO SCH (21:09)
[2018-03-14] MEDS: Sodium Chloride 0.9% 1,000 ML IV SCH ×3 (04:56→22:17)
[2018-03-14 05:47] LABS: Anion Gap 12 mmol/L (10-20); BUN (Urea Nitrogen) 13 mg/dL (9.8-20.1); Calc. Creatinine Clearance 40 mL/min (70-130); Calcium 8.6 mg/dL (7.8-10.44); Carbon Dioxide 21 mmol/L (23-31); Chloride 109 mmol/L (98-107); Estimated GFR-MDRD 42; Glucose 88 mg/dL (83-110); Potassium 3.4 mmol/L (3.5-5.1); Sodium 139 mmol/L (136-145)
[2018-03-14 06:20] LABS: Band 4 % (5-11); Eosinophils 4 % (0-10); Hemoglobin 9.6 g/dL (12.0-16.0); Hypochromia SLIGHT = 6-15 cells (100X) (0-5/hpf); Lymphocytes 13 % (21-51); MDiff Complete? YES; Mean Corpuscular Hemoglobin 31.7 pg (27.0-31.0); Mean Corpuscular Volume 96.2 fL (78.0-98.0); Mean Platelet Volume 6.9 fL (7.4-10.4); Monocytes 11 % (0-10); Neutrophil 68 % (42-75); PLT Morphology Comment Appears Adequate; Platelet Count 282 thou/uL (130-400); Polychromasia SLIGHT = 2-3 cells (100X) (0-2/hpf); RBC Distribution Width 14.9 % (11.5-14.5); Red Blood Cell (RBC) Count 3.02 mill/uL (4.20-5.40); White Blood Cell (WBC) Count 6.2 thou/uL (4.8-10.8)
[2018-03-14] MEDS ORDERED: Iothalamate Meglumine 60% 50 ML VIAL FS ONE (06:27)
[2018-03-14] MEDS ORDERED: Fentanyl 100 MCG/2 ML VIAL ONE (06:47)
[2018-03-14] MEDS: Gabapentin 300 MG CAP PO SCH ×2 (08:17→21:58)
[2018-03-14] MEDS: Loratadine 10 MG TAB PO SCH (08:18)
[2018-03-14] MEDS: Senokot S 8.6-50 MG TAB PO SCH ×2 (08:18→21:59)
[2018-03-14] MEDS: Aspirin 81 mg Enteric Coated Tablet PO SCH (08:18)
[2018-03-14] MEDS: Lisinopril 5 MG TAB PO SCH (08:18)
[2018-03-14] MEDS: Propranolol HCl LA 60 MG CAP PO SCH (08:18)
[2018-03-14] MEDS: busPIRone HCl 10 MG TAB PO SCH ×3 (08:18→21:56)
[2018-03-14] MEDS: Potassium Chloride 10 MEQ TAB PO SCH ×2 (08:19→16:10)
[2018-03-14] MEDS: K-Phos Neutral 250 MG TAB PO SCH ×3 (08:20→16:10)
[2018-03-14] MEDS: buPROPion HCl 100 MG TAB PO SCH ×2 (08:21→21:56)
[2018-03-14] MEDS: Fluconazole 100 MG TAB PO SCH ×2 (08:21→21:57)
[2018-03-14] MEDS: Citrucel 500 MG TAB PO SCH (08:21)
[2018-03-14] MEDS: Polyethylene Glycol 3350 17 GM Packet PO SCH (08:22)
--- NOTE | 2018-03-14 09:03 | CON ---
DATE OF CONSULTATION: 03/14/2018 PRIMARY CARE PHYSICIAN: Dr. Nguyen. REASON FOR CONSULTATION: Bilateral deep venous thromboses and history of urinary tract infection. REFERRING: Hospitalist. HISTORY OF PRESENT ILLNESS: Ms. Vaz is an 87-year-old female, whom I had seen as an inpatient consultation, 02/22/2018, as she presented with gross hematuria. It was thought that initially she presented with GI bleed; however, subsequent followup exam demonstrated gross hematuria with passage of clots per her urethra. She had a prior urine culture demonstrated E. coli, likely never addressed. Repeat urine culture demonstrated E. coli on presentation. CT demonstrating a large blood clot in the trigonal region. She underwent cystoscopy, irrigation of clot, evacuation. Initial CT was not read as significant hydronephrosis; however, retrospect review does demonstrate that she had tortuous ureters, likely due to a large clot adherent to a trigonal region. However, we did place stents as there was significant tortuosity, and she presented with renal insufficiency with a creatinine of 2.7. Her creatinine had varied from 0.6-1.7 in the past. Subsequently, her creatinine did improve, but she continues to have renal insufficiency, likely medical renal in etiology. She had sustained a fall, underwent right ORIF of ankle fracture on 01/2018. She underwent cystoscopy, bilateral retrograde stent placement, evacuation of clots, 02/23/2018 as she presented with clot retention , hemorrhagic Escherichia coli cystitis. She had a followup urine culture that was negative, and was scheduled for diagnostic ureteroscopy, stent exchange this morning; however, she was admitted over the weekend, as she presented with lethargy, lower extremity discomfort. Subsequent medical workup demonstrates bilateral DVT with mild elevation of her troponin. Cardiology has seen the patient and feels that troponin elevation is likely due to her DVTs. There is no chest CT or abdomen obtained on this admission. Currently, she is resting comfortably. Followup urine culture demonstrates yeast species. She has been transitioned from meropenem to Diflucan. She has been initiated on Lovenox subcu for acute lower extremity DVT on 80 mg subcu b.i.d. She was previously advised to hold her Imuran due to immunocompromised state, increased risk for sepsis. It appears the patient has been placed back on her Imuran on this admission. She is confused and oriented x1. Previously, her son has been informed regarding her clinical status. PAST MEDICAL HISTORY: Autoimmune hepatitis, on Imuran; depression; reflux; melanoma; anxiety; arthritis; chronic pain; osteoporosis. PAST SURGICAL HISTORY: Lumbar surgery, hysterectomy, bladder suspension, appendectomy, cataract surgery, tonsillectomy, hemorrhoidectomy, right ankle fracture in 01/[address] Young. 02/23/2018, cystoscopy, evacuation of clots, cystogram, bilateral retrograde, 6 x 28 stent, 02/23/2018. SOCIAL HISTORY: She lives in an assisted living, currently from rehabilitation due to her recent ankle fracture. Denies tobacco abuse. CURRENT MEDICATIONS: Include Tylenol, 81 mg aspirin, Imuran, bupropion, BuSpar , Lovenox 80 mg subcu b.i.d., Pepcid, Diflucan, Neurontin, hydrocodone, lisinopril, Myrbetriq 25 mg 1 p.o. daily, Senokot, tramadol. ALLERGIES: Allergic to CIPROFLOXACIN and SILICONE. PHYSICAL EXAMINATION: GENERAL: She did not present with fever. VITAL SIGNS: T-max is 100.6, currently T 98.7, pulse 70, respiratory rate 16, sats 94%, blood pressure 131/93. I's and O's 1240 in, 1950 out. Urine output is concentrated yellow with some sediment. GENERAL: The patient is sleeping comfortably, easily arousable, oriented x1. HEENT: Grossly unremarkable. HEART: Regular rate. LUNGS: Clear. ABDOMEN: Soft, nontender, nondistended. No CVA tenderness, no suprapubic tenderness, or distention is appreciated. GENITOURINARY EXAM: Demonstrates severe atrophic vaginitis. Walton catheter demonstrating clear concentrated yellow urine with some sedimentous debris. EXTREMITIES: Right ankle brace is intact. The left demonstrates no calf tenderness per se. No significant edema. PERTINENT LABORATORIES: She presented with white count of 5, currently 6.2; presenting hemoglobin is 11.3, currently 9.6; platelet 282. Creatinine on admission 1.8, currently is 1.2. Her creatinine back on 02/21/2018 was 2.7; , 1.0. Urine culture previously, January and February 2018, demonstrating E. coli; 02/28/2018 , preop cx negative. Urinalysis on this admission demonstrates 300 protein, yellow urine, large leukocytes, greater than 50 wbc's, greater than 50 rbc's, no epithelial rare bacteria, 1+ yeast. Urine culture demonstrates E. species, not Shannan. This is likely due to colonization PERTINENT IMAGING: Lower extremity Doppler dated 03/12/2018 demonstrates bilateral DVTs. Thrombus seen in the right common femoral, right profunda femoral left side with occlusive thrombus in the popliteal vein. 02/21/2018, CT of the abdomen and pelvis without contrast, dilation of the right extrarenal pelvis, right ureter tortuous, bladder clot within the bladder , 3 cm right lower pelvic density, extra vesicle. IMPRESSION AND PLAN: Ms. Vaz is an 87-year-old female with, 1. History of autoimmune hepatitis on Imuran. 2. History of fall, right ankle fracture, status post open reduction internal fixation, 01/29/2018. 3. History of Escherichia coli urinary tract infection, January and February 2018, with gross hematuria, clot retention, likely resulting in tortuous ureters bilaterally due to adherent trigonal clot, status post cystoscopy, evacuation of clot, bilateral stents. 4. Good admission with acute bilateral deep venous thromboses. Overall, deconditioned status. 5. Elderly frail female. RECOMMENDATION: The patient was scheduled for cystoscopy diagnostic ureteroscopy, stent exchange. It is likely bilateral tortuous ureters were due to clot retention adherence of the trigone as she presented with gross hematuria, clot retention on her last admission. However, ureteroscopy was scheduled this am for staging to rule out occult pathology, although suspicion low. Given her current state with bilateral DVTs and overall deconditioned status, I do recommend consultation with palliative/ hospice care to discuss options of conservative observation, i.e., stent pull and observation as my suspicion is low. Although I cannot rule out an occult pathology, patient is at high risk for anesthesia events. Will discussed with hospitalist regarding code status, family consultation regarding the desire to proceed with further anesthesia exam versus stent pull and observation. Patient is high risk for fall for recurrent bleed as well. Prognosis guarded. will obtain a followup CT. addendum: I contacted her son power of commercial real estate attorney. He confirms patient is DO NOT RESUSCITATE and states that he is open to meeting with palliative care to discuss options of observation, conservative management. [facility]
--- NOTE | 2018-03-14 11:44 | CT ---
CT CHEST AND ABDOMEN AND PELVIS PERFORMED WITHOUT CONTRAST ENHANCEMENT: History: Patient with DVT, shortness of breath. Recent bilateral stent placement. Hysterectomy and ap pendectomy. Abdominal pain. Comparison: CT abdomen and pelvis, 02-21-18. FINDINGS: The lungs show some chronic change. There is bibasilar atelectasis and tiny effusions. The thoracic aorta is normal in caliber. No mediastinal adenopathy appreciated on this noncontrast st udy. There appears to be a small hiatal hernia. CT OF ABDOMEN PERFORMED WITHOUT CONTRAST: The liver, spleen, and pancreas appear unremarkable given limitations of a noncontrast study. Questio nable slight increased attenuation associated with the gallbladder could potentially represent tiny s tones. Ultrasound would be needed for assessment. Right and left adrenal glands are normal. Right and left kidneys are normal in size. Bilateral ureter al stents are in place. There is prominence to both the right and left extrarenal pelvis. There is no significant periaortic or mesenteric adenopathy. CT OF THE PELVIS WITHOUT CONTRAST ENHANCEMENT: Stents are seen within the bladder. A Walton catheter is also in place. There is a cystic appearing le spring in the region of the right adnexa measuring 3.1 cm in size. IMPRESSION: 1. Bilateral ureteral stents in good position, slight prominence of both the right and left extrarena l pelvis but no significant dilatation of either collecting system. 2. Bibasilar atelectasis with chronic lung change. 3. 3.1 cm cyst in the region of the right adnexa. 4. Fat containing left inguinal hernia. POS: [facility]
--- NOTE | 2018-03-14 15:50 | CON ---
DATE OF CONSULTATION: 03/14/2018 REASON FOR CONSULTATION: Urinary tract infection. HISTORY OF PRESENT ILLNESS: This is an 87-year-old patient with a history of autoimmune hepatitis, on low-dose prednisone, who was admitted from the shelter with weakness, lethargy, and low-grade temperature elevation. The patient recently had an episode of gross hematuria with clot retention, which were evacuated at bedside. The patient continued to have gross hematuria and cystoscopy was completed. No tumor was identified. She had a severe vaginal atrophy and bladder mucosa consistent with cystitis changes without tumor. There was evidence of bilateral hydronephrosis, right greater than left, with a tortuous ureter proximally, right greater than left, and stents were placed in both ureters and patient had a Walton catheter inserted. After that, she was treated for the UTI with Rocephin for E. coli. The organism was pretty much susceptible to every single antimicrobial therapy, but the patient was allergic to QUINOLONES at least reportedly. She is re-admitted now with again lethargy, weakness, and a low-grade temperature elevation of 99.6. She still had an indwelling Walton catheter. The initial findings included a white cell count of 5.5, hemoglobin 11, platelets 357 with 59% neutrophils, and a creatinine of 1.84 with a baseline of 1.07. Her liver function test on admission were normal and albumin 3.5. Urinalysis with greater than 50 wbcs and greater than 50 rbcs as well. The patient had a CT of chest, abdomen, and pelvis, which demonstrated bilateral ureteral stents in good position and bibasilar atelectases with chronic lung change. She also had a venogram with evidence of bilateral deep vein thrombosis. Currently, Ms. Vaz is awake. She knows her name and knows where she is, but could not tell me the date, as she did follow commands. Recollection was limited. She denied any headaches. No sore throat, odynophagia, or dysphagia. No back pain. No shortness of breath or chest pain, no cough, no abdominal pain, no joint symptoms. 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 PAST SURGICAL HISTORY: Appendectomy, hysterectomy, tonsillectomy, and the cystoscopy done above. SOCIAL HISTORY: Never smoker, shelter resident. ALLERGIES: CIPRO. FAMILY HISTORY: Noncontributory. CURRENT MEDICATIONS: [place], Ecotrin, Tessalon, Wellbutrin, BuSpar, Pepcid, Lovenox, Diflucan, methylcellulose, tramadol. PHYSICAL EXAMINATION: VITAL SIGNS: T-max 100.6, currently 97.5; blood pressure 115/52, pulse 58, respirations 16, O2 sat 95%. GENERAL: Appears in no distress. SKIN EXAM: Shows area of redness of the fourth toe, right foot, with some scaling noted. Peripheral IV access. She has a Walton catheter in place. No lymphadenopathy. HEENT: Ocular movements conjugate. Sclerae white. Nasal passages are patent. Oral cavity moist. NECK: Supple, no jugular venous vein distention. LUNGS: Symmetric air entry. HEART: S1 and S2, regular rate. No S3 or S4. ABDOMEN: Soft, not distended or tender. No ascites. No bladder distention. EXTREMITIES: No joint inflammatory activity. She is able to move her extremities, the right foot is in a boot. LABORATORY DATA: The labs have been reviewed above. Latest white cell count 6.2, hemoglobin 9.6, platelets 282 with 68% neutrophils. Repeat chemistry with a sodium of 139, creatinine is 1.21. Microbiology with urine culture with yeast species, not Shannan albicans 75-100 colony-forming units per mL. Another urine culture from 02/28/2018 with no growth at 48 hours. ASSESSMENT: 1. Hemorrhagic cystitis, infectious in nature, treated with stents and indwelling Walton catheter and a course of Rocephin. 2. Negative urine culture a few days ago. 3. General weakness with low-grade temperature elevation. 4. Bilateral deep vein thrombosis. DISCUSSION: Differential diagnosis includes DVT with pulmonary embolism versus invasive UTI. It is more likely that the urinary findings are an innocent bystander's and that the thromboembolism is the more significant factor in her clinical presentation. She could have a pulmonary embolism, but it would be difficult to confirm that in the absence of a CT angiogram. A V/Q scan could be considered, if it would change the management strategy. According to Dr. Vogel's note, palliative care has been considered. In that case, then no further aggressive interventions would be deemed necessary. Diflucan has been started and that seems to be a reasonable approach at this point in time. I would limit it to 1 week of therapy. Again, the main decision here is as to the aggressiveness of the interventions envisioned going forward. [facility]
--- NOTE | 2018-03-14 19:05 | PDOC.EVN ---
Event Note - Event Note Event Note: Advance care planning d/w Patient's son Luis M. Updated him with current medical issues. DNR confirmed. Plan for hospice at nursing facility. He wishes to continue anticoag for DVT/PE.. Diagnosis- DVT with suspected PE, Physical deconditioning, Recent ankle fracture. Total time - 20 mins
--- NOTE | 2018-03-14 19:12 | PDOC.PN ---
- Subjective Encounter Start Date: 03/14/18 Encounter Start Time: 07:30 Patient seen and examined for UTI/PE/DVT. Appears comfortable. No overnight events - Objective Resuscitation Status: Resuscitation Status DNR:Do Not Resuscitate MAR Reviewed: Yes Vital Signs & Weight: Vital Signs (12 hours) Temp Pulse Pulse Pulse Resp BP BP 03/14/18 15:02 98.6 F 63 18 03/14/18 11:21 97.5 F L 58 L 16 03/14/18 09:48 66 63 160/73 H 142/63 H 03/14/18 08:18 70 03/14/18 08:00 98.6 F 70 16 03/14/18 07:11 98.7 F 70 16 BP Pulse Ox 03/14/18 15:02 124/85 93 L 03/14/18 11:21 115/52 L 95 03/14/18 09:48 03/14/18 08:18 03/14/18 08:00 94 L 03/14/18 07:11 131/93 H 94 L Weight Admit Weight 169 lb Weight 166 lb 14.4 oz I&O: 03/13/18 03/14/18 03/15/18 06:59 06:59 06:59 Intake Total 2876 1240 1125 Output Total 1275 1950 850 Balance 1601 -710 275 Result Diagrams: 03/14/18 04:33 03/14/18 04:33 EKG Reviewed by me: Yes (Tele Sr) Phys Exam - Physical Examination Constitutional: NAD Respiratory: no wheezing, no rhonchi Cardiovascular: RRR, no rub Gastrointestinal: soft, non-tender, positive bowel sounds Neurological: moves all 4 limbs Dx/Plan - Plan plan discussed w/ family (son), rodriguez catheter, DVT proph w/lovenox IMPRESSION: Gen weakness/Toxic Metabolic Encephalopathy - multifactorial B/L LE DVT with suspected PE- on Lovenox Elevated troponins - prob due to ?Pulmonary embolism UTI due to Yeast - on Fluconazole Hypophosphatemia/Hypokalemia Recent Hemorrhagic cystitis/Ecoli UTI and stent placement DIDI on CKD 3 - improving Chronic Anemia s/p recent PRBC Recent Rt ankle surgery (01/31) Physical deconditioning h/o Autoimmune hepatitis PLAN: Cont Lovenox - dose adjusted for renal function Plan d/w Dr Tate Consult ID for Yeast UTI Consult Dr Young for ankle fracture follow up per family request AM labs Replace electrolytes Will hold Lisinopril DNR Reduce IVF to 40 ml/hr Review of Systems - Review of Systems Other: Cannot reliably obtained due to current cognition. - Medications/Allergies Allergies/Adverse Reactions: Allergies Allergy/AdvReac Type Severity Reaction Status Date / Time ciprofloxacin HCl Allergy Unknown Verified 03/11/18 21:37 [From Cipro] Pork/Porcine Containing Allergy Verified 03/11/18 21:37 Products tomato [Tomato] Allergy Verified 03/11/18 21:37 SILICONE Allergy Mild Uncoded 03/11/18 21:37 Medications: Current Medications Acetaminophen (Tylenol) 650 mg PO Q4H PRN PRN Reason: Headache/Fever or Pain Last Admin: 03/13/18 21:08 Dose: 650 mg Hydrocodone Bitart/Acetaminophen ([place] 5/325) 1 tab PO Q4H PRN PRN Reason: Moderate Pain (4-6) Aspirin (Ecotrin) 81 mg PO DAILY [facility] Last Admin: 03/14/18 08:18 Dose: 81 mg Benzonatate (Tessalon) 100 mg PO Q4H PRN PRN Reason: Cough Bupropion HCl (Wellbutrin) 100 mg PO BID [facility] Last Admin: 03/14/18 08:21 Dose: 100 mg Buspirone HCl (Buspar) 15 mg PO TID [facility] Last Admin: 03/14/18 14:12 Dose: 15 mg Cholecalciferol (Vitamin D3) 5,000 units PO DAILY [facility] Last Admin: 03/14/18 08:18 Dose: 5,000 units Enoxaparin Sodium (Lovenox) 80 mg SC 2100 [facility] Last Admin: 03/13/18 21:08 Dose: 80 mg Famotidine (Pepcid) 20 mg PO QPM [facility] Last Admin: 03/13/18 21:09 Dose: 20 mg Fluconazole (Diflucan) 100 mg PO BID [facility] Last Admin: 03/14/18 08:21 Dose: 100 mg Gabapentin (Neurontin) 300 mg PO BID [facility] Last Admin: 03/14/18 08:17 Dose: 300 mg Sodium Chloride (Normal Saline 0.9%) 1,000 mls @ 70 mls/hr IV .[id number] [facility] Last Admin: 03/14/18 16:11 Dose: 1,000 mls Lisinopril (Zestril) 5 mg PO DAILY [facility] Last Admin: 03/14/18 08:18 Dose: 5 mg Loratadine (Claritin) 10 mg PO DAILY [facility] Last Admin: 03/14/18 08:18 Dose: 10 mg Magnesium Hydroxide (Milk Of Magnesium) 30 ml PO DAILY PRN PRN Reason: Constipation Melatonin (Melatonin) 6 mg PO [facility] Last Admin: 03/13/18 21:08 Dose: 6 mg Methylcellulose (Citrucel) 1,000 mg PO DAILY [facility] Last Admin: 03/14/18 08:21 Dose: 1,000 mg Mirabegron (Myrbetriq Er) 25 mg PO DAILY [facility] Last Admin: 03/14/18 08:21 Dose: 25 mg Pantoprazole Sodium (Protonix) 40 mg PO DAILY [facility] Last Admin: 03/14/18 08:19 Dose: 40 mg Phosphorus (Kphos Neutral) 250 mg PO TID-[facility] Last Admin: 03/14/18 16:10 Dose: 250 mg Polyethylene Glycol (Miralax) 17 gm PO DAILY [facility] Potassium Chloride (Klor-Con 10) 10 meq PO BID-[facility] Last Admin: 03/14/18 16:10 Dose: 10 meq Propranolol HCl (Inderal La) 60 mg PO DAILY [facility] Last Admin: 03/14/18 08:18 Dose: 60 mg Senna/Docusate Sodium (Senokot S) 1 tab PO BID [facility] Last Admin: 03/14/18 08:18 Dose: 1 tab Sodium Chloride (Flush - Normal Saline) 10 ml IVF Q12HR [facility] Last Admin: 03/14/18 08:22 Dose: 10 ml Sodium Chloride (Flush - Normal Saline) 10 ml IVF PRN PRN PRN Reason: Saline Flush Tramadol HCl (Ultram) 50 mg PO Q6H PRN PRN Reason: Pain
[2018-03-14] MEDS: Melatonin 3 MG TAB PO SCH (21:56)
[2018-03-14] MEDS: Enoxaparin Sodium 80 MG/0.8 ML SYRINGE SC SCH (21:59)
[2018-03-14] MEDS: Famotidine 20 MG TAB PO SCH (21:59)
[2018-03-15 05:58] LABS: Albumin 2.9 g/dL (3.4-4.8); Anion Gap 13 mmol/L (10-20); BUN (Urea Nitrogen) 10 mg/dL (9.8-20.1); BUN/Creatinine Ratio 9.17; Calc. Creatinine Clearance 44 mL/min (70-130); Calcium 9.1 mg/dL (7.8-10.44); Carbon Dioxide 22 mmol/L (23-31); Chloride 110 mmol/L (98-107); Estimated GFR-MDRD 48; Glucose 83 mg/dL (83-110); Magnesium 1.6 mg/dL (1.6-2.6); Phosphorus 2.7 mg/dL (2.3-4.7); Potassium 3.9 mmol/L (3.5-5.1); Sodium 141 mmol/L (136-145)
[2018-03-15] MEDS ORDERED: Magnesium Sulfate 2 GM in Sodium Chloride 0.9% 100 ML IVPB SCH (06:45)
[2018-03-15] MEDS ORDERED: Warfarin Sodium 5 MG TAB PO SCH ×2 (07:00→23:30)
--- NOTE | 2018-03-15 08:05 | PRG ---
DATE OF SERVICE: 03/15/2018 SUBJECTIVE: The patient is resting comfortably, easily arousable, remains confused. OBJECTIVE: Vital signs are stable, temperature 98.7, afebrile. I's and O's 1950 of yellow urine with some sediment. PERTINENT LABORATORY DATA: White count yesterday 6, hemoglobin 9.6, platelets 282. BNP profile today normal with creatinine of 1.0. Urine culture demonstrating yeast species. IMPRESSION AND PLAN: 1. Ms. Vaz is an 87-year-old female, who recently sustained a fall, status post right open reduction and internal fixation. 2. History of Escherichia coli hemorrhagic cystitis with clot retention, bilateral tortuous ureters, status post evacuation of clots, bilateral stents. 3. Deconditioned status. 4. Advanced age. 5. Recent bilateral deep vein thromboses. RECOMMENDATIONS: Hospice consult note reviewed. Son desires to proceed with transitioning his mother to hospice care. We discussed options of indwelling stent versus removal. Son wishes to proceed with bilateral stent removal and observation. She is scheduled for tomorrow, n.p.o. 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 We will remove stent under local versus light sedation. The patient will most likely have light sedation, as she tends to get agitated. Consent to be obtained. Left message for son to call back. Nursing staff notified. She may be transitioned to hospice care from a urologic perspective tomorrow after stent pull. On anticoagulation for DVT, recently started on Coumadin, bridging with Lovenox. Likely will stay in-house for the therapeutic INR. [facility]
[2018-03-15] MEDS: Citrucel 500 MG TAB PO SCH (10:57)
[2018-03-15] MEDS: Propranolol HCl LA 60 MG CAP PO SCH (10:57)
[2018-03-15] MEDS: Loratadine 10 MG TAB PO SCH (10:58)
[2018-03-15] MEDS: busPIRone HCl 10 MG TAB PO SCH ×3 (10:59→22:26)
[2018-03-15] MEDS: Senokot S 8.6-50 MG TAB PO SCH ×2 (10:59→22:27)
[2018-03-15] MEDS: Gabapentin 300 MG CAP PO SCH ×2 (10:59→22:27)
[2018-03-15] MEDS: Potassium Chloride 10 MEQ TAB PO SCH ×2 (10:59→17:47)
[2018-03-15] MEDS: Fluconazole 100 MG TAB PO SCH ×2 (11:01→22:27)
[2018-03-15] MEDS: Polyethylene Glycol 3350 17 GM Packet PO SCH (11:01)
[2018-03-15] MEDS: Enoxaparin Sodium 80 MG/0.8 ML SYRINGE SC SCH ×2 (11:01→22:27)
[2018-03-15] MEDS: K-Phos Neutral 250 MG TAB PO SCH ×3 (11:02→17:48)
[2018-03-15] MEDS: buPROPion HCl 100 MG TAB PO SCH ×2 (11:03→22:31)
[2018-03-15] MEDS: Sodium Chloride 0.9% 1,000 ML IV SCH (11:18)
--- NOTE | 2018-03-15 11:54 | RAD ---
LEFT ANKLE TWO VIEWS: History: Ankle fracture with internal fixation. Comparison: 01-31-18 FINDINGS: Operative fixation of the medial and lateral malleoli is apparent, in anatomic alignment. Minimal amy ency surrounds the distal fibular screws. Osseous structures are demineralized likely related to disu se osteopenia. Ankle mortise is intact. IMPRESSION: 1. Internal fixation right ankle. 2. Disuse osteopenia. POS: FABIO
[2018-03-15] MEDS ORDERED: traMADol HCl 50 MG TAB PO PRN (16:59)
--- NOTE | 2018-03-15 17:01 | PDOC.PN ---
- Subjective Encounter Start Date: 03/15/18 Encounter Start Time: 08:30 Patient seen and examined for UTI/PE/DVT. No new complaints. No overnight events - Objective Resuscitation Status: Resuscitation Status DNR:Do Not Resuscitate MAR Reviewed: Yes Vital Signs & Weight: Vital Signs (12 hours) Temp Pulse Pulse Pulse Resp BP BP 03/15/18 11:31 61 58 L 128/59 L 127/61 03/15/18 08:00 97.6 F 71 16 BP Pulse Ox Pulse Ox Pulse Ox 03/15/18 11:31 93 L 93 L 03/15/18 08:00 155/73 H 97 Weight Admit Weight 169 lb Weight 166 lb 14.4 oz I&O: 03/14/18 03/15/18 03/16/18 06:59 06:59 06:59 Intake Total 1240 1125 Output Total 1950 850 Balance -710 275 Result Diagrams: 03/14/18 04:33 03/15/18 04:38 EKG Reviewed by me: Yes (Tele SR) Phys Exam - Physical Examination Constitutional: NAD Respiratory: no wheezing, no rhonchi Cardiovascular: RRR, no rub Gastrointestinal: soft, non-tender, positive bowel sounds Neurological: moves all 4 limbs Dx/Plan - Plan IMPRESSION: * Gen weakness/Toxic Metabolic Encephalopathy - improving * B/L LE DVT with suspected PE- on Lovenox * Elevated troponins - prob due to ?Pulmonary embolism * UTI due to Yeast - on Fluconazole * Hypophosphatemia/Hypokalemia - replaced * Recent Hemorrhagic cystitis/Ecoli UTI and stent placement * DIDI on CKD 3 - improving * Chronic Anemia s/p recent PRBC * Recent Rt ankle surgery (01/31) * Physical deconditioning * h/o Autoimmune hepatitis PLAN: Start Warfarin with Lovenox, Check PT/INR in AM, Low Vit K diet Adjust Lovenox dose based on renal function DC Aspirin Ureteral stent removal in AM AM labs Cont current meds as below Review of Systems - Review of Systems Respiratory: negative: Cough, Dry, Shortness of Breath, Hemoptysis, SOB with Excertion, Pleuritic Pain, Sputum, Wheezing Cardiovascular: negative: chest pain, palpitations, orthopnea, paroxysmal nocturnal dyspnea, edema, light headedness, other - Medications/Allergies Allergies/Adverse Reactions: Allergies Allergy/AdvReac Type Severity Reaction Status Date / Time ciprofloxacin HCl Allergy Unknown Verified 03/11/18 21:37 [From Cipro] Pork/Porcine Containing Allergy Verified 03/11/18 21:37 Products tomato [Tomato] Allergy Verified 03/11/18 21:37 SILICONE Allergy Mild Uncoded 03/11/18 21:37 Medications: Current Medications Acetaminophen (Tylenol) 650 mg PO Q4H PRN PRN Reason: Headache/Fever or Pain Last Admin: 03/13/18 21:08 Dose: 650 mg Hydrocodone Bitart/Acetaminophen ([place] 5/325) 1 tab PO Q4H PRN PRN Reason: Moderate Pain (4-6) Benzonatate (Tessalon) 100 mg PO Q4H PRN PRN Reason: Cough Bupropion HCl (Wellbutrin) 100 mg PO BID [facility] Last Admin: 03/15/18 11:03 Dose: 100 mg Buspirone HCl (Buspar) 15 mg PO TID [facility] Last Admin: 03/15/18 10:59 Dose: 15 mg Cholecalciferol (Vitamin D3) 5,000 units PO DAILY [facility] Last Admin: 03/15/18 10:58 Dose: 5,000 units Enoxaparin Sodium (Lovenox) 80 mg SC 0900,2100 [facility] Last Admin: 03/15/18 11:01 Dose: 80 mg Famotidine (Pepcid) 20 mg PO QPM [facility] Last Admin: 03/14/18 21:59 Dose: 20 mg Fluconazole (Diflucan) 100 mg PO BID [facility] Last Admin: 03/15/18 11:01 Dose: 100 mg Gabapentin (Neurontin) 300 mg PO BID [facility] Last Admin: 03/15/18 10:59 Dose: 300 mg Sodium Chloride (Normal Saline 0.9%) 1,000 mls @ 40 mls/hr IV .Q24H [facility] Last Admin: 03/15/18 11:18 Dose: 1,000 mls Meropenem 1 gm/ Device 50 mls @ 100 mls/hr IVPB 1100 [facility] Stop: 03/16/18 12:00 Loratadine (Claritin) 10 mg PO DAILY [facility] Last Admin: 03/15/18 10:58 Dose: 10 mg Magnesium Hydroxide (Milk Of Magnesium) 30 ml PO DAILY PRN PRN Reason: Constipation Last Admin: 03/15/18 13:27 Dose: 30 ml Melatonin (Melatonin) 6 mg PO HS [facility] Last Admin: 03/14/18 21:56 Dose: 6 mg Methylcellulose (Citrucel) 1,000 mg PO DAILY [facility] Last Admin: 03/15/18 10:57 Dose: 1,000 mg Mirabegron (Myrbetriq Er) 25 mg PO DAILY [facility] Last Admin: 03/15/18 10:56 Dose: 25 mg Pantoprazole Sodium (Protonix) 40 mg PO DAILY [facility] Last Admin: 03/15/18 10:58 Dose: 40 mg Phosphorus (Kphos Neutral) 250 mg PO TID-[facility] Last Admin: 03/15/18 13:31 Dose: 250 mg Polyethylene Glycol (Miralax) 17 gm PO DAILY [facility] Last Admin: 03/15/18 11:01 Dose: 17 gm Potassium Chloride (Klor-Con 10) 10 meq PO BID-[facility] Last Admin: 03/15/18 10:59 Dose: 10 meq Propranolol HCl (Inderal La) 60 mg PO DAILY [facility] Last Admin: 03/15/18 10:57 Dose: 60 mg Senna/Docusate Sodium (Senokot S) 1 tab PO BID [facility] Last Admin: 03/15/18 10:59 Dose: 1 tab Sodium Chloride (Flush - Normal Saline) 10 ml IVF Q12HR [facility] Last Admin: 03/15/18 11:00 Dose: Not Given Sodium Chloride (Flush - Normal Saline) 10 ml IVF PRN PRN PRN Reason: Saline Flush Tramadol HCl (Ultram) 50 mg PO Q6H PRN PRN Reason: Pain Warfarin Sodium (Coumadin) 2.5 mg PO 1700 [facility]
[2018-03-15 19:46] LABS: INR-International Normal Ratio 1.2; Prothrombin Time 15.6 SEC (12.0-14.7)
[2018-03-15] MEDS: Famotidine 20 MG TAB PO SCH (22:26)
[2018-03-15] MEDS: Melatonin 3 MG TAB PO SCH (22:32)
[2018-03-15 23:07] LABS: Hemoglobin 10.9 g/dL (12.0-16.0); Platelet Count 285 thou/uL (130-400)
[2018-03-16 06:33] LABS: #Eosinphils 0.5 thou/uL (0.0-0.7); #Lymphocytes 1.7 thou/uL (1.20-3.40); #Monocytes 0.7 thou/uL (0.11-0.59); #Neutrophils 1.9 thou/uL (1.40-6.50); %Basophils 0.3 % (0.0-1.0); %Eosinophils 11.1 % (0.0-10.0); %Lymphocytes 35.9 % (21.0-51.0); %Monocytes 14.1 % (0.0-10.0); %Neutrophils 38.6 % (42.0-75.0); Hemoglobin 10.5 g/dL (12.0-16.0); Mean Corpuscular HGB CONC 31.4 g/dL (32.0-36.0); Mean Corpuscular Hemoglobin 29.5 pg (27.0-31.0); Mean Platelet Volume 7.1 fL (7.4-10.4); Platelet Count 142 thou/uL (130-400); RBC Distribution Width 15.1 % (11.5-14.5); Red Blood Cell (RBC) Count 3.55 mill/uL (4.20-5.40); White Blood Cell (WBC) Count 4.8 thou/uL (4.8-10.8)
[2018-03-16 06:39] LABS: INR-International Normal Ratio 1.2; Prothrombin Time 15.4 SEC (12.0-14.7)
[2018-03-16 06:53] LABS: Anion Gap 17 mmol/L (10-20); BUN (Urea Nitrogen) 8 mg/dL (9.8-20.1); Calc. Creatinine Clearance 45 mL/min (70-130); Calcium 8.7 mg/dL (7.8-10.44); Carbon Dioxide 22 mmol/L (23-31); Chloride 106 mmol/L (98-107); Estimated GFR-MDRD 49; Glucose 83 mg/dL (83-110); Potassium 3.9 mmol/L (3.5-5.1); Sodium 141 mmol/L (136-145)
--- NOTE | 2018-03-16 07:41 | CON ---
DATE OF CONSULTATION: 03/15/2018 REQUESTING PHYSICIAN: Dr. Earl Pantoja HISTORY OF PRESENT ILLNESS: Ms. Vaz is an 87-year-old lady who is status post fall at her [facility] home sustaining a right bimalleolar ankle fracture on 01/31/2018. She is now status post open red uction internal fixation. We have seen her in follow up in our clinic and at this time, she is still nonweightbearing using a walker boot for external support. The patient was readmitted to the hosp al on 03/11/2018 for generalized weakness and workup has revealed an acute urinary tract infection an d on admission there were concerns regarding non-ST elevation myocardial infarction. Given the recen t history of ankle surgery, orthopedic consultation requested. The patient is examined in her hospit de bed. She does have her walker boot on. PAST MEDICAL HISTORY: Remarkable for gastroesophageal reflux, skin cancer, and history of bladder pr oblems. PAST SURGICAL HISTORY: Includes appendectomy, hysterectomy, tonsillectomy, skin tag removal and open reduction internal fixation ankle. SOCIAL HISTORY: The patient is a nonsmoker. She lives in a halfway. No history of alcohol or drug abuse. ALLERGIES: CIPROFLOXACIN, and some food allergies. HOME MEDICATIONS: I will refer you to the history and physical at the time of admission. REVIEW OF SYSTEMS: On admission, the patient did not have fevers, sweats or chills. She had some mi ld shortness of breath, but no chest pain. She denies numbness or tingling in the lower extremity. OBJECTIVE: VITAL SIGNS: Heart rate of 63, respiratory rate of 18, and blood pressure 170/75. HEENT: Atraumatic, normocephalic. HEART: Heart was remarkable for a regular rate and rhythm. LUNGS: Remarkable for unlabored breathing. EXTREMITIES: Remarkable for a right lower extremity with a walker boot in place. Her medial and lat eral ankle incisions are healed. [place] have been removed previously. She continues to have normal sensation distally. X-RAYSE: I have ordered a 2-view x-ray of the ankle. This was remarkable for a healing bimalleolar ankle fracture with retained hardware of both the distal fibula and medial malleolus. ASSESSMENT: An 87-year-old lady with subacute right ankle fracture which has now been stabilized wit h internal fixation. PLAN: At this time, the patient does not need to wear her boot at night when she is in bed or when s he is resting and not ambulating. She may advance weightbearing as tolerated with the walker boot wh en she ambulates. We would like to see her back in our office in approximately 1 months' time at [facility] time we will obtain a followup x-ray and possibly wean her from the walker boot altogether. We wi ll follow patient expectantly while she is in the hospital.
[2018-03-16] MEDS: Citrucel 500 MG TAB PO SCH (09:05)
[2018-03-16] MEDS: Potassium Chloride 10 MEQ TAB PO SCH ×2 (09:05→16:15)
[2018-03-16] MEDS: buPROPion HCl 100 MG TAB PO SCH ×2 (09:05→21:13)
[2018-03-16] MEDS: K-Phos Neutral 250 MG TAB PO SCH ×3 (09:05→16:15)
[2018-03-16] MEDS: busPIRone HCl 10 MG TAB PO SCH ×3 (09:05→20:53)
[2018-03-16] MEDS: Fluconazole 100 MG TAB PO SCH ×3 (09:05→20:54)
[2018-03-16] MEDS: Enoxaparin Sodium 80 MG/0.8 ML SYRINGE SC SCH ×3 (09:05→20:55)
[2018-03-16] MEDS: Propranolol HCl LA 60 MG CAP PO SCH (09:06)
[2018-03-16] MEDS: Loratadine 10 MG TAB PO SCH ×2 (09:06→13:22)
[2018-03-16] MEDS: Polyethylene Glycol 3350 17 GM Packet PO SCH (09:06)
[2018-03-16] MEDS: Senokot S 8.6-50 MG TAB PO SCH ×3 (09:06→20:53)
[2018-03-16] MEDS: Gabapentin 300 MG CAP PO SCH ×3 (09:06→20:53)
[2018-03-16] MEDS ORDERED: Meropenem 1 GM in Sodium Chloride 0.9% 100 ML IVPB ONE (11:00)
[2018-03-16] MEDS ORDERED: MEROPENEM 1 GM/50 ML 1 GM in Premix Bag 1 BAG IVPB SCH (11:00)
--- NOTE | 2018-03-16 12:25 | OP ---
DATE OF PROCEDURE: 03/16/2018 PREOPERATIVE DIAGNOSES: 1. An 87-year-old female with history of Escherichia coli, hemorrhagic cystitis with clot retention. 2. History of tortuous bilateral ureters. 3. History of chronic renal insufficiency. POSTOPERATIVE DIAGNOSES: 1. An 87-year-old female with history of Escherichia coli, hemorrhagic cystitis with clot retention. 2. History of tortuous bilateral ureters. 3. History of chronic renal insufficiency. PROCEDURES PERFORMED: Cystoscopy, bilateral stent pull, Walton catheter replacement. SURGEON: Marely Vogel D.O. ANESTHESIA: TIVA. DISPOSITION: Recovery room in stable condition. TOTAL OPERATIVE TIME: Less than 5 minutes. INDICATIONS FOR THE PROCEDURE AND HISTORY: Ms. Vaz is an 87-year-old female who fell in January, sustained a right ankle fracture status post open reduction and internal fixation, presented with UTI, she subsequently presented with E. coli hemorrhagic cystitis. She underwent cystoscopy, clot evacuation and retrograde pyelogram demonstrated tortuous bilateral ureters likely from trigonal clot resulting in tortuous ureters. She was scheduled for diagnostic ureteroscopy although suspicion low for occult malignant process; however, she presented with malaise, lower extremity discomfort this weekend and was found to have bilateral DVTs. Extensive consultation have been obtained with family, per his son, he was considering conservative observation for his mother because of her advanced age and progressive cognitive dysfunction. Given the presentation of bilateral DVTs and her comorbidities, he has transitioned his mother to hospice care. As such, presents for stent pull. As they desired conservative observation, family is requesting bilateral stent pull. Possible risk of renal insufficiency/renal failure and sepsis was reviewed with patient and son in detail. Son is the power of finance attorney and desires a cystoscopy stent pull. DESCRIPTION OF THE PROCEDURE: The patient was taken to the operating room and TIVA anesthesia was administered. Genital area was formally prepped and draped. A 21-Bulgarian cystoscope was utilized for cystoscopy and bilateral stent performed uneventfully. I did replace a 20-Bulgarian 3-way Walton catheter with CBI port plugged, as the patient is on anticoagulation with Coumadin bridging with Lovenox. Her urine output is red tinged this morning. will watch urine output, pending their hospice disposition catheter will be removed. [facility]
[2018-03-16] MEDS ORDERED: PROPOFOL 200 MG/20 ML VIAL ONE (13:50)
[2018-03-16] MEDS ORDERED: Warfarin Sodium 2.5 MG TAB PO SCH (17:00)
[2018-03-16] MEDS: Sodium Chloride 0.9% 1,000 ML IV SCH ×2 (18:02→21:06)
[2018-03-16] MEDS: Acetaminophen 325 MG TAB PO PRN (18:16)
--- NOTE | 2018-03-16 20:08 | PDOC.PN ---
- Subjective Encounter Start Date: 03/16/18 Encounter Start Time: 09:00 Patient seen and examined for UTI/DVT.?PE. Ureteral stent removal today. No new complaints. No overnight events - Objective Resuscitation Status: Resuscitation Status DNR:Do Not Resuscitate MAR Reviewed: Yes Vital Signs & Weight: Vital Signs (12 hours) Temp Pulse Resp BP Pulse Ox 03/16/18 16:00 98.6 F 69 20 141/65 H 93 L 03/16/18 12:50 98.5 F 61 20 157/72 H 93 L Weight Admit Weight 169 lb Weight 165 lb 9.6 oz I&O: 03/15/18 03/16/18 03/17/18 06:59 06:59 06:59 Intake Total 1125 1522 1350 Output Total 850 950 400 Balance 275 572 950 Result Diagrams: 03/16/18 06:20 03/16/18 05:05 EKG Reviewed by me: Yes (Tele SR) Phys Exam - Physical Examination Constitutional: NAD Respiratory: no wheezing, no rhonchi Cardiovascular: RRR, no rub Gastrointestinal: soft, non-tender, positive bowel sounds Dx/Plan - Plan IMPRESSION: * Gen weakness/Toxic Metabolic Encephalopathy - improving * B/L LE DVT with suspected PE- on Lovenox * Elevated troponins - prob due to ?Pulmonary embolism * UTI due to Yeast - on Fluconazole * Hypophosphatemia/Hypokalemia - on replacement * Recent Hemorrhagic cystitis/Ecoli UTI and stent placement * DIDI on CKD 3 - improving * Chronic Anemia s/p recent PRBC * Recent Rt ankle surgery (01/31) * Physical deconditioning * h/o Autoimmune hepatitis PLAN: Cont Lovenox Start Eliquis per Cardiology - Will dc Lovenox tonight AM labs Cont current meds as below Review of Systems - Review of Systems Constitutional: negative: fever, chills, sweats, weakness, malaise, other Respiratory: negative: Cough, Dry, Shortness of Breath, Hemoptysis, SOB with Excertion, Pleuritic Pain, Sputum, Wheezing Cardiovascular: negative: chest pain, palpitations, orthopnea, paroxysmal nocturnal dyspnea, edema, light headedness, other - Medications/Allergies Allergies/Adverse Reactions: Allergies Allergy/AdvReac Type Severity Reaction Status Date / Time ciprofloxacin HCl Allergy Unknown Verified 03/11/18 21:37 [From Cipro] Pork/Porcine Containing Allergy Verified 03/11/18 21:37 Products tomato [Tomato] Allergy Verified 03/11/18 21:37 SILICONE Allergy Mild Uncoded 03/11/18 21:37 Medications: Current Medications Acetaminophen (Tylenol) 650 mg PO Q4H PRN PRN Reason: Headache/Fever or Pain Last Admin: 03/16/18 18:16 Dose: 650 mg Apixaban (Eliquis) 10 mg PO BID [facility] Benzonatate (Tessalon) 100 mg PO Q4H PRN PRN Reason: Cough Bupropion HCl (Wellbutrin) 100 mg PO BID [facility] Last Admin: 03/16/18 09:05 Dose: Not Given Buspirone HCl (Buspar) 15 mg PO TID [facility] Last Admin: 03/16/18 16:15 Dose: 15 mg Cholecalciferol (Vitamin D3) 5,000 units PO DAILY [facility] Last Admin: 03/16/18 13:20 Dose: 5,000 units Enoxaparin Sodium (Lovenox) 80 mg SC 0900,2100 [facility] Stop: 03/16/18 23:59 Last Admin: 03/16/18 13:23 Dose: 80 mg Famotidine (Pepcid) 20 mg PO QPM [facility] Last Admin: 03/15/18 22:26 Dose: 20 mg Fluconazole (Diflucan) 100 mg PO BID [facility] Last Admin: 03/16/18 13:21 Dose: 100 mg Gabapentin (Neurontin) 300 mg PO BID [facility] Last Admin: 03/16/18 13:21 Dose: 300 mg Sodium Chloride (Normal Saline 0.9%) 1,000 mls @ 40 mls/hr IV .Q24H [facility] Last Admin: 03/16/18 18:02 Dose: 1,000 mls Loratadine (Claritin) 10 mg PO DAILY [facility] Last Admin: 03/16/18 13:22 Dose: 10 mg Magnesium Hydroxide (Milk Of Magnesium) 30 ml PO DAILY PRN PRN Reason: Constipation Last Admin: 03/15/18 13:27 Dose: 30 ml Melatonin (Melatonin) 6 mg PO HS [facility] Last Admin: 03/15/18 22:32 Dose: 6 mg Methylcellulose (Citrucel) 1,000 mg PO DAILY [facility] Last Admin: 03/16/18 09:05 Dose: Not Given Mirabegron (Myrbetriq Er) 25 mg PO DAILY [facility] Last Admin: 03/16/18 13:19 Dose: 25 mg Pantoprazole Sodium (Protonix) 40 mg PO DAILY [facility] Last Admin: 03/16/18 13:19 Dose: 40 mg Phosphorus (Kphos Neutral) 250 mg PO TID-[facility] Last Admin: 03/16/18 16:15 Dose: 250 mg Polyethylene Glycol (Miralax) 17 gm PO DAILY [facility] Last Admin: 03/16/18 09:06 Dose: Not Given Potassium Chloride (Klor-Con 10) 10 meq PO BID-[facility] Last Admin: 03/16/18 16:15 Dose: 10 meq Propranolol HCl (Inderal La) 60 mg PO DAILY [facility] Last Admin: 03/16/18 09:06 Dose: Not Given Senna/Docusate Sodium (Senokot S) 1 tab PO BID [facility] Last Admin: 03/16/18 13:21 Dose: 1 tab Sodium Chloride (Flush - Normal Saline) 10 ml IVF Q12HR [facility] Last Admin: 03/16/18 09:06 Dose: Not Given Sodium Chloride (Flush - Normal Saline) 10 ml IVF PRN PRN PRN Reason: Saline Flush Tramadol HCl (Ultram) 50 mg PO Q6H PRN PRN Reason: Pain Last Admin: 03/16/18 18:16 Dose: 50 mg Tramadol HCl (Ultram) 50 mg PO Q6H PRN PRN Reason: Moderate Pain (4-6)
[2018-03-16] MEDS: Famotidine 20 MG TAB PO SCH (20:53)
[2018-03-16] MEDS: Melatonin 3 MG TAB PO SCH (20:54)
--- NOTE | 2018-03-17 07:27 | PRG ---
DATE OF SERVICE: 03/17/2018 SUBJECTIVE: The patient is resting comfortably, easily arousable. Denies flank pain, nausea, vomiting. PHYSICAL EXAMINATION: VITAL SIGNS: Stable. She is afebrile. I's and O's, urine output yane pink tinged, 1100 mL. ABDOMEN: Soft, nontender, nondistended. No CVA tenderness. LABORATORY DATA: No new labs. INR yesterday is 1.2. IMPRESSION AND PLAN: 1. Ms. Vaz is an 87-year-old female with history of bilateral deep venous thrombosis. 2. Status post open reduction internal fixation in January. 3. History of Escherichia coli hemorrhagic cystitis with clot retention with bilateral tortuous ureters, status post evacuation of clot, bilateral stent. 4. Postop day #1, cystoscopy, bilateral stent pull Desires mother to be transitioned to hospice. When disposition final, can discontinue Walton catheter. The patient has been transitioned to Eliquis. [facility]
[2018-03-17 08:37] LABS: #Eosinphils 0.8 thou/uL (0.0-0.7); #Lymphocytes 1.6 thou/uL (1.20-3.40); #Monocytes 0.7 thou/uL (0.11-0.59); #Neutrophils 2.4 thou/uL (1.40-6.50); %Basophils 0.3 % (0.0-1.0); %Lymphocytes 29.1 % (21.0-51.0); %Neutrophils 42.7 % (42.0-75.0); Mean Corpuscular HGB CONC 32.5 g/dL (32.0-36.0); Mean Corpuscular Hemoglobin 30.4 pg (27.0-31.0); Mean Corpuscular Volume 93.4 fL (78.0-98.0); Mean Platelet Volume 6.5 fL (7.4-10.4); Platelet Count 233 thou/uL (130-400); RBC Distribution Width 15.2 % (11.5-14.5); Red Blood Cell (RBC) Count 3.63 mill/uL (4.20-5.40); White Blood Cell (WBC) Count 5.6 thou/uL (4.8-10.8)
[2018-03-17] MEDS: Propranolol HCl LA 60 MG CAP PO SCH (08:55)
[2018-03-17] MEDS: Gabapentin 300 MG CAP PO SCH (08:56)
[2018-03-17] MEDS: Senokot S 8.6-50 MG TAB PO SCH (08:56)
[2018-03-17] MEDS: Potassium Chloride 10 MEQ TAB PO SCH (08:57)
[2018-03-17] MEDS: busPIRone HCl 10 MG TAB PO SCH (08:57)
[2018-03-17] MEDS: Loratadine 10 MG TAB PO SCH (08:57)
[2018-03-17] MEDS: K-Phos Neutral 250 MG TAB PO SCH ×2 (08:58→13:28)
[2018-03-17] MEDS: Fluconazole 100 MG TAB PO SCH (08:59)
[2018-03-17] MEDS: Polyethylene Glycol 3350 17 GM Packet PO SCH (09:00)
[2018-03-17] MEDS ORDERED: Apixaban 5 MG TAB PO SCH (09:00)
[2018-03-17 09:03] LABS: Anion Gap 17 mmol/L (10-20); BUN (Urea Nitrogen) 7 mg/dL (9.8-20.1); Calc. Creatinine Clearance 43 mL/min (70-130); Carbon Dioxide 23 mmol/L (23-31); Chloride 106 mmol/L (98-107); Estimated GFR-MDRD 48; Glucose 92 mg/dL (83-110); Potassium 4.4 mmol/L (3.5-5.1); Sodium 142 mmol/L (136-145)
[2018-03-17] MEDS: buPROPion HCl 100 MG TAB PO SCH (09:08)
[2018-03-17] MEDS: Citrucel 500 MG TAB PO SCH (09:08)
[2018-03-17 13:19] VITALS: TEMP 97.4
[2018-03-17 13:32] VITALS: BP 181/78
[2018-03-17 15:15] VITALS: BMI 26.8
--- NOTE | 2018-03-17 16:38 | DIS ---
DATE OF ADMISSION: 03/17/2018 DISCHARGE DISPOSITION: [facility]. CODE STATUS: DO NOT RESUSCITATE. The patient was seen and examined on the day of discharge. FOLLOWUP: 1. Followup with primary care physician, Dr. Nguyen. 2. [facility] will be arranged at the nursing facility. 3. Follow up with Dr. Vogel in 2-3 weeks. 4. Follow up with Dr. Reyez in 3-4 weeks. INPATIENT CONSULTANTS: Urology, Dr. Vogel; Orthopedics, Dr. Reyez; Cardiology, Dr. Peter webb. DISCHARGE MEDICATIONS: 1. Tylenol as needed. 2. Eliquis 10 mg twice a day for next 6 days, followed by 5 mg twice a day. 3. Fluconazole 100 mg twice a day for 3 more days. 4. Senokot-S 1 tablet twice a day. 5. All other home medications were resumed. BRIEF HOSPITAL COURSE: Patient is an 87-year-old female who was brought into the hospital with gener alized weakness with confusion. Please refer to the history and physical dated 03/11/[address] Eugene rivera for further details. The patient was admitted to the hospital with a diagnosis of encephalopathy along with generalized we akness and urinary tract infection. Urine culture was positive for yeast. The patient was seen by Cary mahajan and Infectious Disease. Infectious Disease recommended to give her fluconazole for 1 week and to discontinue. Ureteral stents were removed by Dr. Vogel. Patient was also seen by Cardiolo gy, Dr. Peter Valle for elevated troponins. CT angiogram of the chest was not done due to acute kidney injury on admission. Due to bilateral lower extremity swelling, a Doppler of bilateral lower extremity was done that was positive for bilateral lower extremity DVT. She was started on Lovenox a nd that has been changed to change to Eliquis. She has been cleared by consultants for discharge. S he will be discharged to [facility] where hospice will be arranged. DIAGNOSTIC TESTS: 1. Echocardiogram showed left ventricular ejection fraction 55%-60% with diastolic dysfunction. 2. Ankle x-ray on 03/15/2018 did not show any acute findings. INPATIENT PROCEDURES: On 03/16/2018, patient underwent a cystoscopy with bilateral stent pull with F oley catheter placement. Walton catheter will be discontinued prior to discharge. Total time coordinating the discharge of this patient was 36 minutes. FINAL DIAGNOSES: 1. Generalized weakness with toxic metabolic encephalopathy, multifactorial. 2. Urinary tract infection secondary to yeast on fluconazole. 3. Bilateral lower extremity deep venous thrombosis with suspected pulmonary embolism, started on El iquis. 4. Elevated troponins, probably secondary to pulmonary embolism (suspected). 5. Acute kidney injury on chronic kidney disease stage 3, resolved. 6. Chronic anemia, status post PRBC recently. 7. Recent right ankle surgery (01/2018). 8. History of autoimmune hepatitis. 9. Physical deconditioning. 10. Recent hemorrhagic cystitis/E. coli urinary tract infection with stent placement. Please note t hat stents were removed this admission. 11. Electrolyte abnormalities including hypokalemia and hypophosphatemia. 12. Moderate protein calorie malnutrition.
== END 2018-03-17 15:35 | DRG 299 ==
LOC: ERS 13:43 → 2NO 18:42
PROVIDERS: ADMIT Family Medicine; ATTEND Family Medicine
PROC: 0TP98DZ Removal of Intraluminal Device from Ureter, Via Natural or Artificial Opening Endoscopic (ICD-10-PCS; principal; 2018-03-16)
DX: I82.403 Acute embolism and thrombosis of unspecified deep veins of lower extremity, bilateral (principal); I26.99 Other pulmonary embolism without acute cor pulmonale; G92 Toxic encephalopathy; N39.0 Urinary tract infection, site not specified; N17.9 Acute kidney failure, unspecified; E86.0 Dehydration; K21.9 Gastro-esophageal reflux disease without esophagitis; Z51.5 Encounter for palliative care; Z66 Do not resuscitate; N18.3 Chronic kidney disease, stage 3 (moderate); R79.89 Other specified abnormal findings of blood chemistry; E83.39 Other disorders of phosphorus metabolism; D64.9 Anemia, unspecified; E87.6 Hypokalemia; K75.4 Autoimmune hepatitis; Z91.81 History of falling; Z85.828 Personal history of other malignant neoplasm of skin
CPT/HCPCS: 36415; 36416; 71250; 74177; 80048; 80053; 80061; 80069; 81003; 81015; 82553; 83605; 83690; 83735; 83880; 84100; 84484; 85014; 85018; 85025; 85049; 85610; 87086; 93005; 93306; 93970; 94760; 96360; 96361; A4216; G8978-GP-CN; G8979-GP-CL; G8987-GO-CM; G8988-GO-CK; J1650; J2185; J2704; J3010; J3475; J7050; J7500; Q9961

== ENCOUNTER 2018-09-08 11:03 | Inpatient (IN) | payer MEDICARE, BC ==
[~2018-09-08 11:03] MED LIST changes: +ISOVUE-370 76%-LOCM 1 ML ONE; -Sodium Chloride 0.9% 15 ML NEB ONE
[2018-09-08 12:38] LABS: Bilirubin Negative (Negative); Blood, Urine Large (Negative); Clarity TURBID (Clear); Glucose, Urine (Dipstick) Negative (Negative); Leukocyte Large (Negative); Nitrite Positive (Negative); Protein, Urine (Dipstick) 100 mg/dL (Neg-Trace); Specific Gravity, Urine 1.013 (1.002-1.036); pH, Urine 6.5 (5.0-9.0)
[2018-09-08 12:43] LABS: Pathc Cast-AUWi Flag 1.34 (0-2.49); RBC/HPF GREATER THAN 50-TNTC HPF (0-3); Squamous Epithelial 0-3 HPF (0-3)
[2018-09-08 12:59] LABS: Hyaline Casts/LPF 0-3 HYALINE CAST LPF (0-3 Hyaline)
[2018-09-08 13:00] LABS: Bacteria/HPF 4+ HPF (None Seen)
[2018-09-08 13:13] LABS: #Basophils 0.1 thou/uL (0.0-0.2); #Eosinphils 0.1 thou/uL (0.0-0.7); #Lymphocytes 1.8 thou/uL (1.20-3.40); #Monocytes 0.7 thou/uL (0.11-0.59); #Neutrophils 6.8 thou/uL (1.40-6.50); %Basophils 0.8 % (0.0-1.0); %Eosinophils 1.1 % (0.0-10.0); %Lymphocytes 18.9 % (21.0-51.0); %Monocytes 7.8 % (0.0-10.0); %Neutrophils 71.5 % (42.0-75.0); Hemoglobin 12.4 g/dL (12.0-16.0); Mean Corpuscular HGB CONC 30.9 g/dL (32.0-36.0); Mean Corpuscular Hemoglobin 26.2 pg (27.0-31.0); Mean Corpuscular Volume 84.7 fL (78.0-98.0); Mean Platelet Volume 8.8 fL (7.4-10.4); Platelet Count 294 thou/uL (130-400); Red Blood Cell (RBC) Count 4.74 mill/uL (4.20-5.40); White Blood Cell (WBC) Count 9.5 thou/uL (4.8-10.8)
[2018-09-08] MEDS ORDERED: Ondansetron PF 4 MG/2 ML Vial ONE (13:34)
[2018-09-08] MEDS ORDERED: cefTRIAXone\\ROCEPHIN 1 GM VIAL ONE (13:34)
[2018-09-08 13:38] LABS: ALT (SGPT) 11 U/L (8-55); AST (SGOT) 22 U/L (5-34); Albumin 4.1 g/dL (3.4-4.8); Alkaline Phosphatase 111 U/L (40-150); Anion Gap 14 mmol/L (10-20); BUN (Urea Nitrogen) 16 mg/dL (9.8-20.1); Bilirubin, Total 0.6 mg/dL (0.2-1.2); Calc. Creatinine Clearance 0 mL/min (70-130); Calcium 10.1 mg/dL (7.8-10.44); Carbon Dioxide 26 mmol/L (23-31); Chloride 104 mmol/L (98-107); Estimated GFR-MDRD 37; Globulin 3.5 g/dL (2.4-3.5); Glucose 91 mg/dL (83-110); Lipase 16 U/L (8-78); Potassium 4.7 mmol/L (3.5-5.1); Protein, Total 7.6 g/dL (6.0-8.3); Sodium 139 mmol/L (136-145)
--- NOTE | 2018-09-08 14:20 | CT ---
CT ABDOMEN AND PELVIS WITH IV CONTRAST: Date: 09/08/18 HISTORY: Abdominal pain. Vomiting. COMPARISON: 03/14/18. FINDINGS: Chronic scarring at the lung bases. Fluid within the distal esophagus. Gallbladder is surgically abse nt. The renal collecting systems and ureters are now decompressed. Two calcifications at the left brielle al pelvis are each 1.0 cm greatest diameter. There is also a 0.6 cm calculus within a santo at the tesfaye perior pole of the left kidney. Renal cysts are unchanged. Prominent degenerative changes and curvature of the lumbar spine. Postoperative changes of the rectum . At the right adnexa, a 2.7 cm oval cyst is smaller than on the prior study. Lack of oral contrast limits evaluation of the bowel. No evidence of obstruction. IMPRESSION: 1. Gastroesophageal reflux is apparent without evidence of bowel obstruction. 2. Decrease in size of the right adnexal cyst, now 2.7 cm. 3. Left renal calculi measuring up to 1.0 cm. No evidence of obstruction. POS: FABIO
[2018-09-08] MEDS ORDERED: Senokot S 8.6-50 MG TAB PO PRN (16:10)
[2018-09-08] MEDS ORDERED: Zolpidem Tartrate 5 MG TAB PO PRN (16:10)
[2018-09-08] MEDS ORDERED: Sodium Chloride 0.65% Nasal 44 ML BOT EA NARE PRN (16:10)
[2018-09-08] MEDS ORDERED: Calcium Carbonate 500 MG ChewTAB PO PRN (16:10)
[2018-09-08] MEDS ORDERED: hydrALAZINE 20 MG/ML VIAL SLOW IVP PRN (16:10)
[2018-09-08] MEDS ORDERED: Bisacodyl 5 MG TAB PO PRN (16:10)
[2018-09-08] MEDS ORDERED: Cepastat Lozenges 1 LOZ PO PRN (16:10)
[2018-09-08] MEDS ORDERED: HYDROcodone/Acetaminophen 5/325 mg Tablet PO PRN (16:10)
[2018-09-08] MEDS ORDERED: Artificial Tears 18 DROP/0.9 ML EA EYE PRN (16:10)
[2018-09-08] MEDS ORDERED: Ondansetron PF 4 MG/2 ML Vial IVP PRN (16:10)
[2018-09-08] MEDS ORDERED: Bisacodyl 10 MG SUPP PR PRN (16:10)
[2018-09-08] MEDS ORDERED: Loratadine 10 MG TAB PO PRN (16:10)
[2018-09-08] MEDS ORDERED: Eucerin (Mineral Oil/Petrolatum,White) 30 gm Jar TOP PRN (16:10)
[2018-09-08] MEDS ORDERED: Diabetic Tussin 200 MG/10 ML UDCUP PO PRN (16:10)
[2018-09-08] MEDS ORDERED: Ondansetron ODT 4 MG TAB PO PRN (16:10)
[2018-09-08] MEDS ORDERED: Loperamide HCl 2 MG CAP PO PRN (16:10)
[2018-09-08] MEDS ORDERED: Acetaminophen 325 MG TAB PO PRN (16:10)
--- NOTE | 2018-09-08 16:58 | HP ---
PRIMARY CARE PHYSICIAN: Lani Oliver MD REASON FOR ADMISSION: Abdominal pain, nausea, vomiting, UTI, and dehydration. HISTORY OF PRESENT ILLNESS: An 87-year-old female, who has pretty much advanced dementia, who lives at [facility]. She cannot provide any history. She has with her, her friend, who provided some history and most of the history obtained from long-term. The patient was having nausea and vomiting and she was having very poor appetite for last couple of days and this morning, symptoms gotten worse. She was also complaining of abdominal pain. She did not have any fever at long-term, but the patient was becoming more lethargic than her baseline and that is why they sent her to emergency room for evaluation. This patient has DNR order, which is confirmed with the patient's son, Luis M on [phone]. The patient is also on palliative care at long-term. The patient's son does not want any kind of aggressive intervention, but he wants to be comfortable. At this point, the patient has bad urinary tract infection, dehydration, and she is not able to tolerate and she is away from her baseline status with mental status and that is why we are admitting to medical floor for stabilization. There was no history of any hematemesis, melena, any diarrhea, or any hematochezia. REVIEW OF SYSTEMS: All review of system tried to review with the patient, but unable to review at this point because of advanced dementia. PAST MEDICAL HISTORY: gastroesophageal reflux disease, recurrent urinary tract infection, nephrolithiasis, history of skin cancer, dementia, and history of deep vein thrombosis and pulmonary embolism, chronic anticoagulation. PAST PSYCHIATRIC HISTORY: Anxiety, depression, and dementia. PAST SURGICAL HISTORY: Appendicectomy, hysterectomy, tonsillectomy, and skin tag removal. SOCIAL HISTORY: The patient lives at [facility]. No history of tobacco, alcohol, or illicit drug abuse. The patient has code status DNR at long-term and the patient is pretty much wheelchair bound. ALLERGIES: CIPROFLOXACIN, PORK, SILICONE, AND TOMATO. FAMILY HISTORY: No family history of coronary artery disease, stroke, or cancer. CURRENT HOME MEDICATIONS: 1. Citrucel 500 mg two tablet daily. 2. Gabapentin 300 mg twice daily. 3. Inderal 60 mg daily. 4. Melatonin 5 mg at bedtime. 5. Ranitidine 150 mg at bedtime. 6. Buspirone 15 mg three times daily. 7. Eliquis 5 mg b.i.d. 8. Lexapro 10 mg daily. 9. Senna one tablet twice daily. EMERGENCY ROOM COURSE: The patient has received Zofran, normal saline, and Rocephin. PHYSICAL EXAMINATION: VITAL SIGNS: On arrival, blood pressure 130/61, pulse 59, respiratory rate 16, temperature 98, saturation 92% on room air, and weight 81.6 kg. GENERAL: The patient is currently disoriented, weak. No obvious acute distress. HEENT: Head; normocephalic and atraumatic. Eyes, pupils are round and reactive to light. Extraocular muscles intact. ENT, oropharynx within normal limits. Dry mucous membranes. No oral lesion. No pharyngeal erythema. No exudate. NECK: Supple. No JVD. No thyromegaly. No carotid bruit. No jugular venous distention. LUNGS: Clear to auscultation without any rhonchi or rales. CARDIAC: S1 and S2 regular without any murmur. No gallop. No rub. ABDOMEN: The patient does have vague abdominal discomfort, mild guarding noted, but no peritoneal sign. EXTREMITIES: No edema. NEUROLOGIC: Grossly nonfocal examination. Detailed neurological examination is not possible because of altered mental status. SIGNIFICANT LABORATORY DATA: CT abdomen and pelvis showing gastroesophageal reflux disease, right adnexal cyst, left renal calculi. CBC; WBC 9.5, hemoglobin 12.4, platelet 294. BMP; sodium 139, potassium 4.7, chloride 104, carbon dioxide 26, BUN 16, creatinine 1.35, glucose 91, calcium 10.1. LFT; AST 22, ALT 11, alkaline phosphatase 111, albumin 4.1, lipase 16. Urinalysis consistent with urinary tract infection. ASSESSMENT: 1. Complicated urinary tract infection with associated nephrolithiasis. 2. Intractable nausea and vomiting and failure to thrive. 3. Dehydration, mild to moderate. 4. Advanced Alzheimer dementia. 5. History of deep venous thrombosis and pulmonary embolism, on chronic anticoagulation with Eliquis. 6. Severe gastroesophageal reflux disease. 7. Anxiety and depression. 8. Chronic physical deconditioning. 9. Deep venous thrombosis prophylaxis. The patient is already on Eliquis therapy. Gastrointestinal prophylaxis, Pepcid 20 mg IV b.i.d. Code status, DNR confirmed with the patient's son on phone. PLAN: Admission to medical floor. Start IV fluid NS at 100 mL/h. Start Rocephin 2 g IV daily. Follow up on culture result. Restart selected home medication. DISPOSITION PLAN: Based on clinical course, we are expecting the patient's stay in the hospital more than 2 midnights. Plan of care discussed with the patient's son on phone. Job ID: [id number]
[2018-09-08] MEDS: Melatonin 3 MG TAB PO SCH (20:33)
[2018-09-08] MEDS: Gabapentin 300 MG CAP PO SCH (20:34)
[2018-09-08] MEDS: Apixaban 5 MG TAB PO SCH (20:34)
[2018-09-08] MEDS: Sodium Chloride 0.9% 1,000 ML IV SCH (20:35)
[2018-09-08] MEDS: busPIRone HCl 10 MG TAB PO SCH (20:35)
[2018-09-08] MEDS: Senokot S 8.6-50 MG TAB PO SCH (20:36)
[2018-09-08] MEDS: Azelastine 137 MCG/Spray 30 ML NS SCH (20:36)
[2018-09-08] MEDS ORDERED: Famotidine/PF 20 mg/2ml Vial SLOW IVP SCH (21:00)
[2018-09-08 21:30] VITALS: BMI 29.0
[2018-09-09] MEDS: Sodium Chloride 0.9% 1,000 ML IV SCH ×3 (03:34→15:01)
[2018-09-09 07:09] LABS: Mean Corpuscular HGB CONC 30.7 g/dL (32.0-36.0); Mean Corpuscular Hemoglobin 26.2 pg (27.0-31.0); Mean Corpuscular Volume 85.1 fL (78.0-98.0); Mean Platelet Volume 8.3 fL (7.4-10.4); Platelet Count 208 thou/uL (130-400); RBC Distribution Width 16.6 % (11.5-14.5); Red Blood Cell (RBC) Count 3.82 mill/uL (4.20-5.40); White Blood Cell (WBC) Count 6.7 thou/uL (4.8-10.8)
[2018-09-09 07:33] LABS: ALT (SGPT) 11 U/L (8-55); AST (SGOT) 22 U/L (5-34); Albumin 3.1 g/dL (3.4-4.8); Alkaline Phosphatase 73 U/L (40-150); Anion Gap 12 mmol/L (10-20); BUN (Urea Nitrogen) 20 mg/dL (9.8-20.1); Bilirubin, Total 0.4 mg/dL (0.2-1.2); Calc. Creatinine Clearance 42 mL/min (70-130); Calcium 8.6 mg/dL (7.8-10.44); Carbon Dioxide 21 mmol/L (23-31); Chloride 111 mmol/L (98-107); Estimated GFR-MDRD 41; Globulin 2.2 g/dL (2.4-3.5); Glucose 92 mg/dL (83-110); Protein, Total 5.3 g/dL (6.0-8.3); Sodium 140 mmol/L (136-145)
[2018-09-09] MEDS: Apixaban 5 MG TAB PO SCH ×2 (08:19→21:16)
[2018-09-09] MEDS: Senokot S 8.6-50 MG TAB PO SCH ×2 (08:19→21:16)
[2018-09-09] MEDS: Gabapentin 300 MG CAP PO SCH ×2 (08:19→21:16)
[2018-09-09] MEDS: Loratadine 10 MG TAB PO SCH (08:20)
[2018-09-09] MEDS: busPIRone HCl 10 MG TAB PO SCH ×3 (08:20→21:16)
[2018-09-09 08:53] LABS: Band 9 % (5-11); Hypochromia SLIGHT = 6-15 cells (100X) (0-5/hpf); Lymphocytes 16 % (21-51); MDiff Complete? YES; Monocytes 15 % (0-10); Neutrophil 51 % (42-75); Platelet Morphology Comment Appears Adequate; Polychromasia SLIGHT = 2-3 cells (100X) (0-2/hpf); Reactive Lymphocytes 9 % (0-10)
[2018-09-09] MEDS ORDERED: Non-Formulary Item 1 EACH (Fexofenadine Hcl [Allegra Allergy] 180 MG) PO SCH (09:00)
[2018-09-09] MEDS: Azelastine 137 MCG/Spray 30 ML NS SCH ×3 (09:30→21:16)
[2018-09-09] MEDS: Propranolol HCl LA 60 MG CAP PO SCH (09:35)
--- NOTE | 2018-09-09 11:15 | PDOC.PN ---
- Subjective Encounter Start Date: 09/09/18 Encounter Start Time: 09:00 -: old records requested/rev Patient seen and examined. No new complaints. No overnight events - Objective Resuscitation Status - Order Detail: 09/08/18 16:13 Resuscitation Status Routine Resuscitation Status: DNAR: NO Resuscitation Discussed with: CONFIRMED WITH SON KLARISSA Reviewed: Yes Vital Signs & Weight: Vital Signs (12 hours) Temp Pulse Resp BP Pulse Ox 09/09/18 11:10 98.7 F 61 16 110/53 L 98 09/09/18 08:20 96 09/09/18 07:12 98.3 F 63 18 109/70 96 09/09/18 04:00 98.0 F 65 20 113/71 99 09/09/18 00:00 98.7 F 70 20 104/64 99 Weight Weight 180 lb 0.119 oz Result Diagrams: 09/09/18 06:48 09/09/18 06:48 Phys Exam - Physical Examination Constitutional: NAD HEENT: PERRLA, moist MMs, sclera anicteric, oral pharynx no lesions Neck: no JVD, supple Respiratory: no wheezing, no rales, no rhonchi Cardiovascular: RRR, no significant murmur, no rub Gastrointestinal: soft, non-tender, no distention, positive bowel sounds Musculoskeletal: no edema, pulses present Neurological: moves all 4 limbs Lymphatic: no nodes Psychiatric: normal affect Skin: no rash, normal turgor Dx/Plan (1) Dehydration Code(s): E86.0 - DEHYDRATION Status: Acute (2) Encephalopathy acute Code(s): G93.40 - ENCEPHALOPATHY, UNSPECIFIED Status: Acute (3) UTI (urinary tract infection) Status: Acute (4) Alzheimer's dementia Code(s): G30.9 - ALZHEIMER'S DISEASE, UNSPECIFIED; F02.80 - DEMENTIA IN OTH DISEASES CLASSD ELSWHR W/O BEHAVRL DISTURB Status: Chronic (5) Anemia, normocytic normochromic Code(s): D64.9 - ANEMIA, UNSPECIFIED Status: Chronic (6) Anxiety and depression Code(s): F41.9 - ANXIETY DISORDER, UNSPECIFIED; F32.9 - MAJOR DEPRESSIVE DISORDER, SINGLE EPISODE, UNSPECIFIED Status: Chronic (7) GERD (gastroesophageal reflux disease) Code(s): K21.9 - GASTRO-ESOPHAGEAL REFLUX DISEASE WITHOUT ESOPHAGITIS Status: Chronic (8) History of deep venous thrombosis or pulmonary embolus Code(s): GCG1572 - Status: Chronic (9) Nephrolithiasis Status: Chronic - Plan cont current plan of care, continue antibiotics * pt is improving * continue ivf * follow culture result * medication reviewed as below * symptomatic treatment. Review of Systems - Review of Systems Other: not reliable due to her baseline dementia - Medications/Allergies Allergies/Adverse Reactions: Allergies Allergy/AdvReac Type Severity Reaction Status Date / Time ciprofloxacin HCl Allergy Unknown Verified 03/11/18 21:37 [From Cipro] Pork/Porcine Containing Allergy Verified 03/11/18 21:37 Products tomato [Tomato] Allergy Verified 03/11/18 21:37 SILICONE Allergy Mild Uncoded 03/11/18 21:37 Medications: Current Medications Acetaminophen (Tylenol) 650 mg PO Q4H PRN PRN Reason: Headache/Fever/Mild Pain (1-3) Hydrocodone Bitart/Acetaminophen ([place] 5/325) 1 tab PO Q4H PRN PRN Reason: Moderate Pain (4-6) Apixaban (Eliquis) 5 mg PO BID [facility] Last Admin: 09/09/18 08:19 Dose: 5 mg Artificial Tears (Tears Naturale) 2 drop EA EYE PRN PRN PRN Reason: Dry Eyes Azelastine HCl (Azelastine) 0 ml NS BID [facility] Last Admin: 09/09/18 09:30 Dose: Not Given Bisacodyl (Dulcolax) 10 mg [place] DAILYPRN PRN PRN Reason: Constipation Bisacodyl (Dulcolax) 10 mg PO DAILYPRN PRN PRN Reason: Constipation Buspirone HCl (Buspar) 15 mg PO TID [facility] Last Admin: 09/09/18 08:20 Dose: 15 mg Calcium Carbonate (Tums) 1,000 mg PO Q4H PRN PRN Reason: Heartburn or Indigestion Famotidine (Pepcid) 20 mg SLOW IVP QPM [facility] Gabapentin (Neurontin) 300 mg PO BID [facility] Last Admin: 09/09/18 08:19 Dose: 300 mg Guaifenesin (Robitussin Sf) 200 mg PO Q4H PRN PRN Reason: Cough Hydralazine HCl (Apresoline) 10 mg SLOW IVP Q4H PRN PRN Reason: SBP > 180 and HR < 70 Sodium Chloride (Normal Saline 0.9%) 1,000 mls @ 100 mls/hr IV .Q10H [facility] Last Admin: 09/09/18 03:34 Dose: Not Given Ceftriaxone Sodium 2 gm/ (Sodium Chloride) 100 mls @ 200 mls/hr IVPB Q24HR [facility] Loperamide HCl (Imodium) 2 mg PO PRN PRN PRN Reason: Diarrhea/Loose Stools Loratadine (Claritin) 10 mg PO DAILYPRN PRN PRN Reason: Sinus Symptoms Loratadine (Claritin) 10 mg PO DAILY [facility] Last Admin: 09/09/18 08:20 Dose: 10 mg Melatonin (Melatonin) 6 mg PO HS [facility] Last Admin: 09/08/18 20:33 Dose: 6 mg Mineral Oil/White Petrolatum (Eucerin Cream) 0 gm TOP BIDPRN PRN PRN Reason: Dry Skin Mirabegron (Myrbetriq Er) 25 mg PO DAILY [facility] Last Admin: 09/09/18 09:33 Dose: 25 mg Ondansetron HCl (Zofran Odt) 4 mg PO Q6H PRN PRN Reason: Nausea/Vomiting Ondansetron HCl (Zofran) 4 mg IVP Q6H PRN PRN Reason: Nausea/Vomiting Propranolol HCl (Inderal La) 60 mg PO DAILY [facility] Last Admin: 09/09/18 09:35 Dose: Not Given Senna/Docusate Sodium (Senokot S) 2 tab PO BID PRN PRN Reason: Constipation Senna/Docusate Sodium (Senokot S) 1 tab PO BID [facility] Last Admin: 09/09/18 08:19 Dose: 1 tab Sodium Chloride ([place] Nasal [place] 0.65%) 0 ml EA NARE QIDPRN PRN PRN Reason: Nasal Congestion Sodium Chloride (Flush - Normal Saline) 10 ml IVF Q12HR [facility] Last Admin: 09/09/18 08:20 Dose: 10 ml Sodium Chloride (Flush - Normal Saline) 10 ml IVF PRN PRN PRN Reason: Saline Flush Throat Lozenges (Cepastat Lozenges) 1 juanis PO Q2H PRN PRN Reason: Sore Throat Zolpidem Tartrate (Ambien) 5 mg PO HSPRN PRN PRN Reason: Insomnia
[2018-09-09] MEDS: cefTRIAXone\\ROCEPHIN 2 GM in Sodium Chloride 0.9% 100 ML IVPB SCH (12:19)
[2018-09-09] MEDS ORDERED: Diabetic Tussin DM 5 ML UDCUP PO PRN (14:46)
[2018-09-09] MEDS: Diabetic Tussin 200 MG/10 ML UDCUP PO PRN (15:00)
--- NOTE | 2018-09-09 15:48 | PQF ---
CLINICAL DOCUMENTATION IMPROVEMENT CLARIFICATION FORM: ICD-10 Updated PLEASE DO AN ADDENDUM TO THE PROGRESS NOTE WITH ANY DOCUMENTATION UPDATES OR ADDITIONS AND CARRY THROUGH TO DC SUMMARY. THANK YOU. DATE: 09/09/18 ATTN: DR. NARANJO Please exercise your independent, professional judgment in responding to the clarification form. Clinical indicators are provided on the bottom of this form for your review Please check appropriate box(s): [ x ] Encephalopathy: Type: [ ] Acute [ ] Subacute [ ] Chronic Etiology: [ ] Hypertensive [ x ] Metabolic [ ] Toxic Hypoxic [ x] Septic [ ] Drug induced: [ ] Unspecified [ ] in the setting of underlying dementia [ ] Other diagnosis [ ] Unable to determine In addition, please specify: Present on Admission (POA): [ x ] Yes [ ] No [ ] Unable to determine For continuity of documentation, please document condition throughout progress notes and discharge summary. Thank You. CLINICAL INDICATORS - SIGNS / SYMPTOMS / LABS PROGRESS NOTE 09/09: "ACUTE ENCEPHALOPATHY" RISKS: UTI H/O DEMENTIA ADVANCED AGE TREATMENT: IV FLUIDS (ER-PRESENT) IV ROCEPHIN (ER-PRESENT) URINE CULTURE (This form is maintained as a part of the permanent medical record) 2014 [employer]. All Rights Reserved [email or web address] Office: [phone] [email or web address]
[2018-09-09] MEDS: Melatonin 3 MG TAB PO SCH (21:16)
[2018-09-09] MEDS: Famotidine/PF 20 mg/2ml Vial SLOW IVP SCH (21:16)
[2018-09-10] MEDS: Sodium Chloride 0.9% 1,000 ML IV SCH ×2 (02:09→08:21)
[2018-09-10] MEDS: Apixaban 5 MG TAB PO SCH ×2 (08:21→20:45)
[2018-09-10] MEDS: Loratadine 10 MG TAB PO SCH (08:21)
[2018-09-10] MEDS: Propranolol HCl LA 60 MG CAP PO SCH (08:22)
[2018-09-10] MEDS: busPIRone HCl 10 MG TAB PO SCH ×3 (08:22→20:45)
[2018-09-10] MEDS: Azelastine 137 MCG/Spray 30 ML NS SCH ×2 (08:22→20:44)
[2018-09-10] MEDS: Gabapentin 300 MG CAP PO SCH ×2 (08:22→20:45)
[2018-09-10] MEDS: Senokot S 8.6-50 MG TAB PO SCH ×2 (08:22→20:45)
--- NOTE | 2018-09-10 11:00 | PDOC.PN ---
- Subjective Encounter Start Date: 09/10/18 Encounter Start Time: 09:00 Patient seen and examined. No new complaints. No overnight events she is not feeling good enough to go home today she has cough - Objective Resuscitation Status - Order Detail: 09/08/18 16:13 Resuscitation Status Routine Resuscitation Status: DNAR: NO Resuscitation Discussed with: CONFIRMED WITH SON KLARISSA Reviewed: Yes Vital Signs & Weight: Vital Signs (12 hours) Temp Pulse Resp BP Pulse Ox 09/10/18 08:00 95 09/10/18 07:59 99.1 F 63 16 123/74 95 Weight Weight 180 lb 0.119 oz I&O: 09/09/18 09/10/18 09/11/18 06:59 06:59 06:59 Intake Total 2760 Balance 2760 Result Diagrams: 09/09/18 06:48 09/09/18 06:48 Additional Labs: Accuchecks 09/10/18 04:48 POC Glucose 96 Phys Exam - Physical Examination Constitutional: NAD HEENT: PERRLA, moist MMs, sclera anicteric Neck: no JVD, supple Respiratory: no wheezing, no rales, no rhonchi Cardiovascular: RRR, no significant murmur, no rub Gastrointestinal: soft, non-tender, no distention, positive bowel sounds Musculoskeletal: no edema, pulses present Neurological: non-focal, normal sensation, moves all 4 limbs Lymphatic: no nodes Psychiatric: normal affect Skin: no rash, normal turgor Dx/Plan (1) Dehydration Code(s): E86.0 - DEHYDRATION Status: Acute (2) Encephalopathy acute Code(s): G93.40 - ENCEPHALOPATHY, UNSPECIFIED Status: Acute (3) UTI (urinary tract infection) Status: Acute (4) Alzheimer's dementia Code(s): G30.9 - ALZHEIMER'S DISEASE, UNSPECIFIED; F02.80 - DEMENTIA IN OTH DISEASES CLASSD ELSWHR W/O BEHAVRL DISTURB Status: Chronic (5) Anemia, normocytic normochromic Code(s): D64.9 - ANEMIA, UNSPECIFIED Status: Chronic (6) Anxiety and depression Code(s): F41.9 - ANXIETY DISORDER, UNSPECIFIED; F32.9 - MAJOR DEPRESSIVE DISORDER, SINGLE EPISODE, UNSPECIFIED Status: Chronic (7) GERD (gastroesophageal reflux disease) Code(s): K21.9 - GASTRO-ESOPHAGEAL REFLUX DISEASE WITHOUT ESOPHAGITIS Status: Chronic (8) History of deep venous thrombosis or pulmonary embolus Code(s): ZXK7256 - Status: Chronic (9) Nephrolithiasis Status: Chronic - Plan cont current plan of care, continue antibiotics * continue rocephin * omnicef on discharge * dc IVF * medication reviewed as below * symptomatic treatment * repeat labs tomorrow. Review of Systems - Review of Systems Constitutional: malaise. negative: fever, chills, sweats, weakness, other ENT: negative: Ear Pain, Ear Discharge, Nose Pain, Nose Discharge, Nose Congestion, Mouth Pain, Mouth Swelling, Throat Pain, Throat Swelling, Other Respiratory: negative: Cough, Dry, Shortness of Breath, Hemoptysis, SOB with Excertion, Pleuritic Pain, Sputum, Wheezing Cardiovascular: negative: chest pain, palpitations, orthopnea, paroxysmal nocturnal dyspnea, edema, light headedness, other Gastrointestinal: negative: Nausea, Vomiting, Abdominal Pain, Diarrhea, Constipation, Melena, Hematochezia, Other Genitourinary: negative: Dysuria, Frequency, Incontinence, Hematuria, Retention , Other Musculoskeletal: negative: Neck Pain, Shoulder Pain, Arm Pain, Back Pain, Hand Pain, Leg Pain, Foot Pain, Other - Medications/Allergies Allergies/Adverse Reactions: Allergies Allergy/AdvReac Type Severity Reaction Status Date / Time ciprofloxacin HCl Allergy Unknown Verified 03/11/18 21:37 [From Cipro] Pork/Porcine Containing Allergy Verified 03/11/18 21:37 Products tomato [Tomato] Allergy Verified 03/11/18 21:37 SILICONE Allergy Mild Uncoded 03/11/18 21:37 Medications: Current Medications Acetaminophen (Tylenol) 650 mg PO Q4H PRN PRN Reason: Headache/Fever/Mild Pain (1-3) Hydrocodone Bitart/Acetaminophen ([place] 5/325) 1 tab PO Q4H PRN PRN Reason: Moderate Pain (4-6) Apixaban (Eliquis) 5 mg PO BID [facility] Last Admin: 09/10/18 08:21 Dose: 5 mg Artificial Tears (Tears Naturale) 2 drop EA EYE PRN PRN PRN Reason: Dry Eyes Azelastine HCl (Azelastine) 0 ml NS BID [facility] Last Admin: 09/10/18 08:22 Dose: 1 spr Bisacodyl (Dulcolax) 10 mg [place] DAILYPRN PRN PRN Reason: Constipation Bisacodyl (Dulcolax) 10 mg PO DAILYPRN PRN PRN Reason: Constipation Buspirone HCl (Buspar) 15 mg PO TID [facility] Last Admin: 09/10/18 08:22 Dose: 15 mg Calcium Carbonate (Tums) 1,000 mg PO Q4H PRN PRN Reason: Heartburn or Indigestion Famotidine (Pepcid) 20 mg SLOW IVP QPM [facility] Last Admin: 09/09/18 21:16 Dose: 20 mg Gabapentin (Neurontin) 300 mg PO BID [facility] Last Admin: 09/10/18 08:22 Dose: 300 mg Guaifenesin (Robitussin Sf) 200 mg PO Q6H PRN PRN Reason: Cough Last Admin: 09/09/18 15:00 Dose: 200 mg Hydralazine HCl (Apresoline) 10 mg SLOW IVP Q4H PRN PRN Reason: SBP > 180 and HR < 70 Sodium Chloride (Normal Saline 0.9%) 1,000 mls @ 100 mls/hr IV .Q10H [facility] Last Admin: 09/10/18 08:21 Dose: Not Given Ceftriaxone Sodium 2 gm/ (Sodium Chloride) 100 mls @ 200 mls/hr IVPB Q24HR [facility] Last Admin: 09/09/18 12:19 Dose: 100 mls Loperamide HCl (Imodium) 2 mg PO PRN PRN PRN Reason: Diarrhea/Loose Stools Loratadine (Claritin) 10 mg PO DAILYPRN PRN PRN Reason: Sinus Symptoms Loratadine (Claritin) 10 mg PO DAILY [facility] Last Admin: 09/10/18 08:21 Dose: 10 mg Melatonin (Melatonin) 6 mg PO HS [facility] Last Admin: 09/09/18 21:16 Dose: 6 mg Mineral Oil/White Petrolatum (Eucerin Cream) 0 gm TOP BIDPRN PRN PRN Reason: Dry Skin Mirabegron (Myrbetriq Er) 25 mg PO DAILY [facility] Last Admin: 09/10/18 08:22 Dose: 25 mg Ondansetron HCl (Zofran Odt) 4 mg PO Q6H PRN PRN Reason: Nausea/Vomiting Ondansetron HCl (Zofran) 4 mg IVP Q6H PRN PRN Reason: Nausea/Vomiting Propranolol HCl (Inderal La) 60 mg PO DAILY [facility] Last Admin: 09/10/18 08:22 Dose: 60 mg Senna/Docusate Sodium (Senokot S) 2 tab PO BID PRN PRN Reason: Constipation Senna/Docusate Sodium (Senokot S) 1 tab PO BID [facility] Last Admin: 09/10/18 08:22 Dose: 1 tab Sodium Chloride ([place] Nasal [place] 0.65%) 0 ml EA NARE QIDPRN PRN PRN Reason: Nasal Congestion Sodium Chloride (Flush - Normal Saline) 10 ml IVF Q12HR [facility] Last Admin: 09/10/18 08:22 Dose: 10 ml Sodium Chloride (Flush - Normal Saline) 10 ml IVF PRN PRN PRN Reason: Saline Flush Throat Lozenges (Cepastat Lozenges) 1 juanis PO Q2H PRN PRN Reason: Sore Throat Zolpidem Tartrate (Ambien) 5 mg PO HSPRN PRN PRN Reason: Insomnia
[2018-09-10] MEDS: cefTRIAXone\\ROCEPHIN 2 GM in Sodium Chloride 0.9% 100 ML IVPB SCH (12:35)
[2018-09-10] MEDS: Diabetic Tussin 200 MG/10 ML UDCUP PO PRN (15:50)
[2018-09-10] MEDS: Famotidine/PF 20 mg/2ml Vial SLOW IVP SCH (20:45)
[2018-09-10] MEDS: Melatonin 3 MG TAB PO SCH (20:46)
[2018-09-11] MEDS: Propranolol HCl LA 60 MG CAP PO SCH (09:12)
[2018-09-11] MEDS: Loratadine 10 MG TAB PO SCH (09:13)
[2018-09-11] MEDS: Apixaban 5 MG TAB PO SCH ×2 (09:34→21:21)
[2018-09-11] MEDS: Gabapentin 300 MG CAP PO SCH ×2 (09:34→21:21)
[2018-09-11] MEDS: Azelastine 137 MCG/Spray 30 ML NS SCH ×2 (09:34→21:42)
[2018-09-11] MEDS: Senokot S 8.6-50 MG TAB PO SCH ×2 (09:34→21:21)
[2018-09-11] MEDS: busPIRone HCl 10 MG TAB PO SCH ×3 (09:44→21:21)
[2018-09-11 10:28] LABS: Anion Gap 14 mmol/L (10-20); BUN (Urea Nitrogen) 12 mg/dL (9.8-20.1); Calc. Creatinine Clearance 48 mL/min (70-130); Calcium 9.3 mg/dL (7.8-10.44); Carbon Dioxide 23 mmol/L (23-31); Chloride 108 mmol/L (98-107); Estimated GFR-MDRD 48; Glucose 123 mg/dL (83-110); Potassium 3.6 mmol/L (3.5-5.1); Sodium 141 mmol/L (136-145)
[2018-09-11 11:16] LABS: Eosinophils 6 % (0-10); Hemoglobin 10.3 g/dL (12.0-16.0); Hypochromia SLIGHT = 6-15 cells (100X) (0-5/hpf); Lymphocytes 17 % (21-51); MDiff Complete? YES; Mean Corpuscular HGB CONC 30.5 g/dL (32.0-36.0); Mean Corpuscular Hemoglobin 25.6 pg (27.0-31.0); Mean Corpuscular Volume 84.2 fL (78.0-98.0); Mean Platelet Volume 7.8 fL (7.4-10.4); Microcytosis SLIGHT = 6-15 cells (100X) (0-5/hpf); Monocytes 15 % (0-10); Neutrophil 54 % (42-75); Platelet Count 201 thou/uL (130-400); Platelet Morphology Comment Appears Adequate; Polychromasia SLIGHT = 2-3 cells (100X) (0-2/hpf); RBC Distribution Width 16.2 % (11.5-14.5); Reactive Lymphocytes 8 % (0-10); Red Blood Cell (RBC) Count 4.03 mill/uL (4.20-5.40); White Blood Cell (WBC) Count 4.5 thou/uL (4.8-10.8)
--- NOTE | 2018-09-11 11:39 | RAD ---
RADIOGRAPH CHEST 1 VIEW: Date: 09/11/2018. Time: 10:01 a.m. HISTORY: An 87-year-old female with cough. COMPARISON: One view study of 02/26/2018. FINDINGS: There is apparent cardiomegaly. New subtle finding of mild streaky densities at the bilateral lung b ases. The rest of the visualized lung pink are clear. No pneumothorax or pulmonary edema. IMPRESSION: 1. Mild streaky densities of bilateral lung bases. Nonspecific. This could represent atelectasis, but pneumonia is not ruled out. A lateral view would be useful. 2. Apparent cardiomegaly, without pulmonary edema. RIRI [] POS: CARLOTA
--- NOTE | 2018-09-11 11:59 | PDOC.PN ---
- Subjective Encounter Start Date: 09/11/18 Encounter Start Time: 09:40 pt has cough, feels weak, Patient seen and examined. No overnight events - Objective Resuscitation Status - Order Detail: 09/08/18 16:13 Resuscitation Status Routine Resuscitation Status: DNAR: NO Resuscitation Discussed with: CONFIRMED WITH SON KLARISSA Reviewed: Yes Vital Signs & Weight: Vital Signs (12 hours) Temp Pulse Resp BP Pulse Ox 09/11/18 08:00 98.7 F 56 L 18 116/69 93 L Weight Weight 180 lb 0.119 oz I&O: 09/10/18 09/11/18 09/12/18 06:59 06:59 06:59 Intake Total 2760 880 200 Balance 2760 880 200 Result Diagrams: 09/11/18 09:49 09/11/18 09:49 Radiology Reviewed by me: Yes (chest xray reviewed) Phys Exam - Physical Examination Constitutional: NAD HEENT: PERRLA, moist MMs, sclera anicteric Neck: no JVD, supple coarse sound+, basal reduced air entry Cardiovascular: RRR, no significant murmur, no rub Gastrointestinal: soft, non-tender, no distention, positive bowel sounds Musculoskeletal: no edema, pulses present Neurological: non-focal, normal sensation, moves all 4 limbs Lymphatic: no nodes Psychiatric: normal affect Skin: no rash, normal turgor Dx/Plan (1) Dehydration Code(s): E86.0 - DEHYDRATION Status: Resolved (2) Encephalopathy acute Code(s): G93.40 - ENCEPHALOPATHY, UNSPECIFIED Status: Resolved (3) UTI (urinary tract infection) Status: Acute (4) Alzheimer's dementia Code(s): G30.9 - ALZHEIMER'S DISEASE, UNSPECIFIED; F02.80 - DEMENTIA IN OTH DISEASES CLASSD ELSWHR W/O BEHAVRL DISTURB Status: Chronic (5) Anemia, normocytic normochromic Code(s): D64.9 - ANEMIA, UNSPECIFIED Status: Chronic (6) Anxiety and depression Code(s): F41.9 - ANXIETY DISORDER, UNSPECIFIED; F32.9 - MAJOR DEPRESSIVE DISORDER, SINGLE EPISODE, UNSPECIFIED Status: Chronic (7) GERD (gastroesophageal reflux disease) Code(s): K21.9 - GASTRO-ESOPHAGEAL REFLUX DISEASE WITHOUT ESOPHAGITIS Status: Chronic (8) History of deep venous thrombosis or pulmonary embolus Code(s): PPJ8893 - Status: Chronic (9) Nephrolithiasis Status: Chronic (10) Bronchitis Code(s): J40 - BRONCHITIS, NOT SPECIFIED ACUTE OR CHRONIC Status: Acute - Plan cont current plan of care, continue antibiotics * add mucinex * add azithromycin * chest xray done and reviewed * continue rocephin * medication reviewed as below * symptomatic treatment. * check respi viral panel Review of Systems - Review of Systems Constitutional: weakness. negative: fever, chills, sweats, malaise, other Respiratory: Cough, Sputum. negative: Dry, Shortness of Breath, Hemoptysis, SOB with Excertion, Pleuritic Pain, Wheezing Cardiovascular: negative: chest pain, palpitations, orthopnea, paroxysmal nocturnal dyspnea, edema, light headedness, other Gastrointestinal: negative: Nausea, Vomiting, Abdominal Pain, Diarrhea, Constipation, Melena, Hematochezia, Other Genitourinary: negative: Dysuria, Frequency, Incontinence, Hematuria, Retention , Other Musculoskeletal: negative: Neck Pain, Shoulder Pain, Arm Pain, Back Pain, Hand Pain, Leg Pain, Foot Pain, Other - Medications/Allergies Allergies/Adverse Reactions: Allergies Allergy/AdvReac Type Severity Reaction Status Date / Time ciprofloxacin HCl Allergy Unknown Verified 03/11/18 21:37 [From Cipro] Pork/Porcine Containing Allergy Verified 03/11/18 21:37 Products tomato [Tomato] Allergy Verified 03/11/18 21:37 SILICONE Allergy Mild Uncoded 03/11/18 21:37 Medications: Current Medications Acetaminophen (Tylenol) 650 mg PO Q4H PRN PRN Reason: Headache/Fever/Mild Pain (1-3) Hydrocodone Bitart/Acetaminophen ([place] 5/325) 1 tab PO Q4H PRN PRN Reason: Moderate Pain (4-6) Apixaban (Eliquis) 5 mg PO BID [facility] Last Admin: 09/11/18 09:34 Dose: 5 mg Artificial Tears (Tears Naturale) 2 drop EA EYE PRN PRN PRN Reason: Dry Eyes Azelastine HCl (Azelastine) 0 ml NS BID [facility] Last Admin: 09/11/18 09:34 Dose: 1 spr Bisacodyl (Dulcolax) 10 mg IN DAILYPRN PRN PRN Reason: Constipation Bisacodyl (Dulcolax) 10 mg PO DAILYPRN PRN PRN Reason: Constipation Buspirone HCl (Buspar) 15 mg PO TID [facility] Last Admin: 09/11/18 09:44 Dose: 15 mg Calcium Carbonate (Tums) 1,000 mg PO Q4H PRN PRN Reason: Heartburn or Indigestion Famotidine (Pepcid) 20 mg SLOW IVP QPM [facility] Last Admin: 09/10/18 20:45 Dose: 20 mg Gabapentin (Neurontin) 300 mg PO BID [facility] Last Admin: 09/11/18 09:34 Dose: 300 mg Guaifenesin (Robitussin Sf) 200 mg PO Q6H PRN PRN Reason: Cough Last Admin: 09/10/18 15:50 Dose: 200 mg Guaifenesin (Mucinex) 600 mg PO Q12HR [facility] Hydralazine HCl (Apresoline) 10 mg SLOW IVP Q4H PRN PRN Reason: SBP > 180 and HR < 70 Ceftriaxone Sodium 2 gm/ (Sodium Chloride) 100 mls @ 200 mls/hr IVPB Q24HR [facility] Last Admin: 09/10/18 12:35 Dose: 100 mls Azithromycin 500 mg/ Sodium (Chloride) 250 mls @ 250 mls/hr IVPB Q24HR [facility] Loperamide HCl (Imodium) 2 mg PO PRN PRN PRN Reason: Diarrhea/Loose Stools Loratadine (Claritin) 10 mg PO DAILYPRN PRN PRN Reason: Sinus Symptoms Loratadine (Claritin) 10 mg PO DAILY [facility] Last Admin: 09/11/18 09:13 Dose: 10 mg Melatonin (Melatonin) 6 mg PO HS [facility] Last Admin: 09/10/18 20:46 Dose: 6 mg Mineral Oil/White Petrolatum (Eucerin Cream) 0 gm TOP BIDPRN PRN PRN Reason: Dry Skin Mirabegron (Myrbetriq Er) 25 mg PO DAILY [facility] Last Admin: 09/11/18 09:13 Dose: 25 mg Ondansetron HCl (Zofran Odt) 4 mg PO Q6H PRN PRN Reason: Nausea/Vomiting Ondansetron HCl (Zofran) 4 mg IVP Q6H PRN PRN Reason: Nausea/Vomiting Propranolol HCl (Inderal La) 60 mg PO DAILY [facility] Last Admin: 09/11/18 09:12 Dose: 60 mg Senna/Docusate Sodium (Senokot S) 2 tab PO BID PRN PRN Reason: Constipation Senna/Docusate Sodium (Senokot S) 1 tab PO BID [facility] Last Admin: 09/11/18 09:34 Dose: 1 tab Sodium Chloride ([place] Nasal [place] 0.65%) 0 ml EA NARE QIDPRN PRN PRN Reason: Nasal Congestion Sodium Chloride (Flush - Normal Saline) 10 ml IVF Q12HR [facility] Last Admin: 09/11/18 09:38 Dose: 10 ml Sodium Chloride (Flush - Normal Saline) 10 ml IVF PRN PRN PRN Reason: Saline Flush Throat Lozenges (Cepastat Lozenges) 1 juanis PO Q2H PRN PRN Reason: Sore Throat Zolpidem Tartrate (Ambien) 5 mg PO HSPRN PRN PRN Reason: Insomnia
[2018-09-11] MEDS: cefTRIAXone\\ROCEPHIN 2 GM in Sodium Chloride 0.9% 100 ML IVPB SCH (12:54)
[2018-09-11] MEDS: Azithromycin 500 MG in Sodium Chloride 0.9% 250 ML 250 ML IVPB SCH (12:54)
[2018-09-11] MEDS: Melatonin 3 MG TAB PO SCH (21:21)
[2018-09-11] MEDS: guaiFENesin ER 600 MG TAB PO SCH (21:21)
[2018-09-11] MEDS: Famotidine/PF 20 mg/2ml Vial SLOW IVP SCH (21:22)
[2018-09-11] MEDS: Diabetic Tussin 200 MG/10 ML UDCUP PO PRN (21:22)
[2018-09-12] MEDS: Propranolol HCl LA 60 MG CAP PO SCH ×2 (08:07→08:10)
[2018-09-12] MEDS: Azelastine 137 MCG/Spray 30 ML NS SCH (08:07)
[2018-09-12] MEDS: busPIRone HCl 10 MG TAB PO SCH (08:12)
[2018-09-12] MEDS: Senokot S 8.6-50 MG TAB PO SCH (08:12)
[2018-09-12] MEDS: Loratadine 10 MG TAB PO SCH (08:13)
[2018-09-12] MEDS: guaiFENesin ER 600 MG TAB PO SCH (08:13)
[2018-09-12] MEDS: Apixaban 5 MG TAB PO SCH (08:13)
[2018-09-12] MEDS: Gabapentin 300 MG CAP PO SCH (08:13)
--- NOTE | 2018-09-12 11:16 | DIS ---
DATE OF ADMISSION: 09/08/2018 DATE OF DISCHARGE: 09/12/2018 PRIMARY CARE PHYSICIAN: Dr. French Nguyen. DISCHARGE DISPOSITION: [facility]. PRIMARY DISCHARGE DIAGNOSES: Bronchitis/early pneumonia, urinary tract infection, encephalopathy on admission resolved, dehydration corrected. SECONDARY DISCHARGE DIAGNOSES: Nephrolithiasis, history of deep vein thrombosis, gastroesophageal reflux disease, anxiety and depression, normocytic normochromic anemia, Alzheimer dementia. PRIMARY PROCEDURE/OPERATION: None. RADIOLOGICAL INVESTIGATION: Chest x-ray showed basilar infiltration/atelectasis. CT abdomen and pelvis showed nephrolithiasis. SIGNIFICANT LABORATORY DATA: WBC 4.5, hemoglobin 10.3, platelet 201. Sodium 141, potassium 3.6, creatinine 1.08, calcium 9.3. LFT normal. Urinalysis suggestive of UTI. Urine culture grew Klebsiella and Proteus. Respiratory virus panel negative. DISCHARGE MEDICATIONS: 1. Omnicef 300 mg p.o. b.i.d. for 7 days. 2. Azithromycin 250 mg p.o. daily for 5 days. 3. Mucinex 600 mg twice daily for 5 days. 4. Florastor 250 mg p.o. daily for 5 days. 5. Azelastine nasal spray b.i.d. 6. Buspirone 15 mg t.i.d. 7. Refresh eye drops q.6 hourly. 8. Citrucel 1 g p.o. daily. 9. Farida 180 mg daily. 10. Gabapentin 300 mg p.o. b.i.d. 11. Melatonin 5 mg p.o. at bedtime. 12. Mirabegron 25 mg p.o. daily. 13. Inderal 60 mg p.o. daily. 14. Ranitidine 150 mg p.o. at bedtime. 15. Tylenol 650 mg q.6 hourly p.r.n. 16. Eliquis 5 mg p.o. b.i.d. 17. Senokot one tablet twice daily. CONTRAINDICATION: None. CODE STATUS: DNR. INPATIENT SITE DAMAGE PREVENTION TECHNICIAN: None. ALLERGIES: CIPRO, TOMATO, PORK CONTAINING PRODUCTS. DISCHARGE PLAN: Post hospital, the patient will follow up with primary care physician in 1 or 2 weeks. HOSPITAL COURSE: An 87-year-old female who was admitted by me on September 08, 2018. Please see my HPI for further details. The patient was admitted for UTI. She was having nausea, vomiting, dehydration. She was also having encephalopathy and sepsis. She was also started coughing while in hospital and she was found with basilar atelectasis versus infiltration. We treated as if bronchitis. Her respiratory virus panel was negative. Her urine culture grew Klebsiella and Proteus and based on culture and sensitivity result, we changed to Omnicef. The patient is now overall doing very well. She is afebrile. She is back to her baseline level. The patient is seen and examined at bedside today. All review of systems reviewed with her and negative. All new medication prescription sent to pharmacy. Paperwork for discharge done and discharge medication reconciliation done. This patient's heart rate remains lower side and that is why we discontinued Inderal LA upon discharge. Job ID: [id number]
[2018-09-12] MEDS: Azithromycin 500 MG in Sodium Chloride 0.9% 250 ML 250 ML IVPB SCH (12:05)
[2018-09-12] MEDS: cefTRIAXone\\ROCEPHIN 2 GM in Sodium Chloride 0.9% 100 ML IVPB SCH (13:39)
[2018-09-12 14:35] VITALS: BP 150/74; TEMP 97.1
== END 2018-09-12 14:31 | DRG 689 ==
LOC: ERS 11:03 → ERHOLD 15:59 → T4-B 20:19
PROVIDERS: ADMIT Internal Medicine; ATTEND Internal Medicine
DX: N39.0 Urinary tract infection, site not specified (principal); G93.41 Metabolic encephalopathy; I26.99 Other pulmonary embolism without acute cor pulmonale; E86.0 Dehydration; Z66 Do not resuscitate; K21.9 Gastro-esophageal reflux disease without esophagitis; Z85.828 Personal history of other malignant neoplasm of skin; Z86.718 Personal history of other venous thrombosis and embolism; Z79.01 Long term (current) use of anticoagulants; F41.9 Anxiety disorder, unspecified; D32.9 Benign neoplasm of meninges, unspecified; Z99.3 Dependence on wheelchair; Z79.899 Other long term (current) drug therapy; Z79.84 Long term (current) use of oral hypoglycemic drugs; N20.0 Calculus of kidney; G30.9 Alzheimer's disease, unspecified; F02.80 Dementia in other diseases classified elsewhere, unspecified severity, without behavioral disturbance, psychotic disturbance, mood disturbance, and anxiety; D64.9 Anemia, unspecified; F32.9 Major depressive disorder, single episode, unspecified; J40 Bronchitis, not specified as acute or chronic
CPT/HCPCS: 36415; 36416; 51701; 71045; 74177; 80048; 80053; 81003; 81015; 83690; 85025; 87077; 87086; 87186; 87633; 96361; 96365; 96375; A4353; J0456; J0696; J2405; J7050; Q9966; S0028

== ENCOUNTER 2018-09-13 18:30 | Emergency (ER) | payer MEDICARE, BC ==
[2018-09-13 20:34] LABS: Blood, Urine Large (Negative); Specific Gravity, Urine 1.025 (1.005-1.030)
[2018-09-13 20:36] LABS: Clarity Cloudy (Clear)
[2018-09-13 20:46] LABS: Leukocyte Unable to Interpret (Negative); Nitrite Unable to Interpret (Negative); Protein, Urine (Dipstick) Unable to Interpret mg/dL (Neg-Trace); RBC/HPF GREATER THAN 50-TNTC HPF (0-3)
[2018-09-13 20:47] LABS: Bilirubin Unable to Interpret (Negative); Glucose, Urine (Dipstick) Unable to Interpret mg/dL (Negative); Urobilinogen UNABLE TO INTERPRET mg/dL (0.2-1.0)
[2018-09-13 20:48] LABS: Bacteria/HPF 2+ HPF (None Seen)
[2018-09-13 20:49] LABS: Hyaline Casts/LPF NONE SEEN LPF (0-3 Hyaline)
[2018-09-13 20:58] LABS: #Eosinphils 0.5 thou/uL (0.0-0.7); #Monocytes 0.8 thou/uL (0.11-0.59); #Neutrophils 2.8 thou/uL (1.40-6.50); %Basophils 0.4 % (0.0-1.0); %Eosinophils 8.8 % (0.0-10.0); %Lymphocytes 32.1 % (21.0-51.0); %Monocytes 13.4 % (0.0-10.0); %Neutrophils 45.3 % (42.0-75.0); Hemoglobin 10.6 g/dL (12.0-16.0); Mean Corpuscular Hemoglobin 26.3 pg (27.0-31.0); Platelet Count 229 thou/uL (130-400); RBC Distribution Width 16.4 % (11.5-14.5); Red Blood Cell (RBC) Count 4.04 mill/uL (4.20-5.40); White Blood Cell (WBC) Count 6.2 thou/uL (4.8-10.8)
[2018-09-13 21:04] LABS: INR-International Normal Ratio 1.7; PTT 44.1 SEC (22.9-36.1); Prothrombin Time 19.7 SEC (12.0-14.7)
[2018-09-13 21:23] LABS: ALT (SGPT) 9 U/L (8-55); AST (SGOT) 15 U/L (5-34); Albumin 3.4 g/dL (3.4-4.8); Alkaline Phosphatase 83 U/L (40-150); Anion Gap 10 mmol/L (10-20); BUN (Urea Nitrogen) 17 mg/dL (9.8-20.1); Bilirubin, Total 0.4 mg/dL (0.2-1.2); Calc. Creatinine Clearance 0 mL/min (70-130); Calcium 9.5 mg/dL (7.8-10.44); Carbon Dioxide 30 mmol/L (23-31); Chloride 106 mmol/L (98-107); Estimated GFR-MDRD 53; Globulin 2.6 g/dL (2.4-3.5); Glucose 102 mg/dL (83-110); Potassium 3.9 mmol/L (3.5-5.1); Sodium 142 mmol/L (136-145)
== END 2018-09-13 23:51 | disposition home or self-care (01) ==
LOC: ERS 18:30
DX: N39.0 Urinary tract infection, site not specified (principal); K21.9 Gastro-esophageal reflux disease without esophagitis; I10 Essential (primary) hypertension; Z79.899 Other long term (current) drug therapy
CPT/HCPCS: 36415; 51702; 80053; 81003; 81015; 82274; 85025; 85610; 85730; A4353

== ENCOUNTER 2018-11-02 21:52 | Emergency (ER) | payer MEDICARE, BC ==
[2018-11-02 23:04] LABS: ALT (SGPT) 11 U/L (8-55); AST (SGOT) 23 U/L (5-34); Albumin 3.5 g/dL (3.4-4.8); Alkaline Phosphatase 96 U/L (40-150); Anion Gap 13 mmol/L (10-20); BUN (Urea Nitrogen) 27 mg/dL (9.8-20.1); Bilirubin, Total 0.2 mg/dL (0.2-1.2); Calc. Creatinine Clearance 0 mL/min (70-130); Calcium 9.7 mg/dL (7.8-10.44); Carbon Dioxide 19 mmol/L (23-31); Chloride 106 mmol/L (98-107); Estimated GFR-MDRD 41; Globulin 3.2 g/dL (2.4-3.5); Glucose 96 mg/dL (83-110); Hemoglobin 12.2 g/dL (12.0-16.0); Mean Corpuscular HGB CONC 29.4 g/dL (32.0-36.0); Mean Corpuscular Hemoglobin 26.1 pg (27.0-31.0); Mean Corpuscular Volume 88.8 fL (78.0-98.0); Mean Platelet Volume 7.8 fL (7.4-10.4); Platelet Count 221 thou/uL (130-400); Potassium 4.3 mmol/L (3.5-5.1); Protein, Total 6.7 g/dL (6.0-8.3); RBC Distribution Width 15.7 % (11.5-14.5); Red Blood Cell (RBC) Count 4.69 mill/uL (4.20-5.40); Sodium 134 mmol/L (136-145); White Blood Cell (WBC) Count 8.1 thou/uL (4.8-10.8)
[2018-11-02 23:25] LABS: #Basophils 0.1 thou/uL (0.0-0.2); #Eosinphils 0.3 thou/uL (0.0-0.7); #Lymphocytes 3.2 thou/uL (1.20-3.40); #Monocytes 1.1 thou/uL (0.11-0.59); #Neutrophils 3.4 thou/uL (1.40-6.50); %Basophils 0.6 % (0.0-1.0); %Lymphocytes 39.6 % (21.0-51.0); %Monocytes 13.7 % (0.0-10.0); MDiff Complete? YES; Ovalocytes SLIGHT = 2-5 cells (100X) (0-1/hpf)
[2018-11-02 23:39] LABS: Bacteria/HPF None Seen HPF (None Seen); Squamous Epithelial None Seen HPF (0-3)
[2018-11-02 23:52] LABS: Bilirubin Negative (Negative); Blood, Urine Large (Negative); Clarity CLOUDY (Clear); Glucose, Urine (Dipstick) Negative (Negative); Leukocyte Moderate (Negative); Nitrite Negative (Negative); Protein, Urine (Dipstick) 100 mg/dL (Neg-Trace); Specific Gravity, Urine 1.013 (1.002-1.036); Urobilinogen 0.2 mg/dL (0.2-1.0)
[2018-11-02 23:53] LABS: Pathc Cast-AUWi Flag 3.23 (0-2.49); Yeast-AUWi Flag 59.4 (0-25.0)
[2018-11-02 23:58] LABS: Hyaline Casts/LPF NONE SEEN LPF (0-3 Hyaline); Other Casts/LPF None Seen LPF (0-3 Hyaline); RBC/HPF GREATER THAN 50-TNTC HPF (0-3); Renal Epithelial None Seen HPF (0-3); Transitional Epithelial NONE SEEN HPF (0-3); Yeast-All Forms None Seen HPF (None Seen)
== END 2018-11-03 00:44 ==
LOC: ERS 21:52
DX: N39.0 Urinary tract infection, site not specified (principal); K62.5 Hemorrhage of anus and rectum; K21.9 Gastro-esophageal reflux disease without esophagitis; I10 Essential (primary) hypertension; Z79.899 Other long term (current) drug therapy; Z79.01 Long term (current) use of anticoagulants
CPT/HCPCS: 36415; 51701; 80053; 81003; 81015; 82274; 85025; 87086; A4353

== ENCOUNTER 2018-12-14 20:17 | Inpatient (IN) | payer MEDICARE, BC ==
[2018-12-14 20:47] LABS: Base Excess-Venous 2.8 mmol/L (-2.0 to 3.0); Bicarbonate (HCO3v) 27.1 mmol/L (22.0-28.0); CO2 Tension (PvCO2) 39.7 mmHg (40.0-50.0); Chloride 103 mmol/L (98-107); Hemoglobin - Calc 11.8 g/dL (12.0-16.0); O2 Tension (PvO2) 41.6 mmHg (35.0-45.0); Potassium 4.4 mmol/L (3.5-5.1); Sodium 138 mmol/L (138-145); T. Carbon Dioxide 28.3 mmol/L (22.0-28.0); pH (Venous) 7.442 (7.320-7.430); vO2 Saturation-calc 78.9 % (60.0-85.0)
[2018-12-14 20:50] LABS: #Basophils 0.1 thou/uL (0.0-0.2); #Lymphocytes 1.2 thou/uL (1.20-3.40); #Monocytes 1.1 thou/uL (0.11-0.59); #Neutrophils 9.7 thou/uL (1.40-6.50); %Basophils 0.5 % (0.0-1.0); %Eosinophils 0.1 % (0.0-10.0); %Lymphocytes 9.8 % (21.0-51.0); %Monocytes 9.2 % (0.0-10.0); %Neutrophils 80.4 % (42.0-75.0); Hemoglobin 11.7 g/dL (12.0-16.0); Mean Corpuscular HGB CONC 31.2 g/dL (32.0-36.0); Mean Corpuscular Hemoglobin 26.8 pg (27.0-31.0); Mean Corpuscular Volume 85.6 fL (78.0-98.0); Mean Platelet Volume 7.6 fL (7.4-10.4); Platelet Count 232 thou/uL (130-400); RBC Distribution Width 15.8 % (11.5-14.5); Red Blood Cell (RBC) Count 4.36 mill/uL (4.20-5.40)
[2018-12-14 20:56] LABS: Bilirubin Negative (Negative); Blood, Urine Large (Negative); Clarity TURBID (Clear); Glucose, Urine (Dipstick) Negative (Negative); Leukocyte Large (Negative); Nitrite Negative (Negative); Protein, Urine (Dipstick) 100 mg/dL (Neg-Trace); Specific Gravity, Urine 1.014 (1.002-1.036); Urobilinogen 0.2 mg/dL (0.2-1.0); pH, Urine 8.5 (5.0-9.0)
[2018-12-14] MEDS ORDERED: Acetaminophen 650 MG Suppository ONE (20:57)
--- NOTE | 2018-12-14 20:58 | RAD ---
CHEST ONE VIEW: 12/14/18 HISTORY: Fever. COMPARISON: 09/11/18. FINDINGS: Right central line. Heart size is within upper range of normal limits. Mild increased markings bilate rally but no confluent pneumonia, overt edema or pleural effusion. IMPRESSION: No significant acute intrathoracic disease. No evidence for pneumonia. POS: RRE
[2018-12-14 20:59] LABS: Bacteria/HPF 4+ HPF (None Seen); Squamous Epithelial 0-3 HPF (0-3); Yeast-AUWi Flag 428.9 (0-25.0)
[2018-12-14] MEDS ORDERED: cefTRIAXone\\ROCEPHIN 2 GM VIAL ONE (21:03)
[2018-12-14] MEDS ORDERED: Sodium Chloride 0.9% 0 ML ONE (21:03)
[2018-12-14 21:12] LABS: ALT (SGPT) 10 U/L (8-55); AST (SGOT) 18 U/L (5-34); Albumin 3.5 g/dL (3.4-4.8); Alkaline Phosphatase 86 U/L (40-150); Anion Gap 11 mmol/L (10-20); BUN (Urea Nitrogen) 44 mg/dL (9.8-20.1); Bilirubin, Total 0.8 mg/dL (0.2-1.2); Calc. Creatinine Clearance 0 mL/min (70-130); Calcium 9.5 mg/dL (7.8-10.44); Carbon Dioxide 27 mmol/L (23-31); Chloride 103 mmol/L (98-107); Estimated GFR-MDRD 19; Glucose 125 mg/dL (83-110); Potassium 4.7 mmol/L (3.5-5.1); Protein, Total 6.5 g/dL (6.0-8.3); Sodium 136 mmol/L (136-145)
[2018-12-14 21:13] LABS: RBC/HPF GREATER THAN 50-TNTC HPF (0-3)
[2018-12-14 21:14] LABS: Hyaline Casts/LPF 0-3 HYALINE CAST LPF (0-3 Hyaline); Yeast-All Forms None Seen HPF (None Seen)
[2018-12-14] MEDS ORDERED: Norepinephrine 8 MG/0.9% NS 250 ML ONE (21:50)
[2018-12-14] MEDS ORDERED: Ondansetron ODT 4 MG TAB SL PRN (22:53)
[2018-12-14] MEDS ORDERED: Ondansetron PF 4 MG/2 ML Vial IVP PRN (22:53)
[2018-12-14] MEDS ORDERED: Acetaminophen 325 MG Suppository PR PRN (22:55)
--- NOTE | 2018-12-14 23:21 | HP ---
PRIMARY CARE PHYSICIAN: Dr. rFench Nguyen. REASON FOR ADMISSION: Transferred from half-way for acute encephalopathy, hypotension, and urinary tract infection. HISTORY OF PRESENT ILLNESS: An 88-year-old female who has [id number] DNR at half-way. The patient lives at [facility] where the patient was found altered, lethargic, and less responsive. She was hypotensive and she was having high-grade fever and that is why she was sent to emergency room for evaluation. In the emergency room, the patient was completely unresponsive. She was not able to provide any history. The patient's son was notified from the emergency room and he confirmed DNR status while in hospital as well. The patient required central line placement and because of hypotension, Levophed drip was planned. The patient will be admitted to ICU for close monitoring. REVIEW OF SYSTEMS: All review of system tried to review with the patient, but unable to review at this point because of currently altered mental status as well as underlying advanced dementia. PAST MEDICAL HISTORY: Gastroesophageal reflux disease, recurrent UTI, nephrolithiasis, history of skin cancer, dementia, history of deep vein thrombosis, and pulmonary embolism, chronic anticoagulation. PAST PSYCHIATRIC HISTORY: Anxiety, depression, and dementia. PAST SURGICAL HISTORY: Appendicectomy, hysterectomy, tonsillectomy, skin tag removed. SOCIAL HISTORY: The patient lives at [facility]. The patient does not have any history of tobacco, alcohol, or illicit drug abuse. The patient has [id number] DNR at half-way. The patient is bed bound. ALLERGIES: CIPROFLOXACIN, PORK, SILICON, AND TOMATO. FAMILY HISTORY: No family history of coronary artery disease, stroke, or cancer. EMERGENCY ROOM COURSE: The patient is given Rocephin, IV fluid. Levophed drip started. Vancomycin is also given. CURRENT HOME MEDICATIONS: Based on our previous hospital record, the patient is on following medications: 1. Azelastine nasal spray b.i.d. 2. Buspirone 15 mg t.i.d. 3. Citrucel 1000 mg daily. 4. Farida 180 mg daily. 5. Gabapentin 300 mg b.i.d. 6. Melatonin 5 mg p.o. at bedtime. 7. Mirabegron 25 mg p.o. daily. 8. Ranitidine 150 mg p.o. at bedtime. 9. Eliquis 5 mg p.o. b.i.d. 10. Florastor 250 mg p.o. daily. PHYSICAL EXAMINATION: VITAL SIGNS: On arrival, blood pressure lowest 85/35, pulse 75, respiratory rate 24, temperature 102.8, saturation 92% on 3 L oxygen. Weight 66 kg. GENERAL: The patient is currently altered, not following any command, less responsive, only makes grimace. HEENT: Normocephalic, atraumatic. Eyes; pupils round and reactive to light. Extraocular muscle intact. ENT; dry mucous membranes. No oral lesion. No pharyngeal erythema. No exudate. NECK: Supple. No JVD. No thyromegaly. No carotid bruit. LUNGS: Clear to auscultation without any rhonchi or rales. CARDIAC: S1 and S2, appears regular without any murmur. No gallop. No rub. ABDOMEN: On deep palpation, the patient does not promote any grimace, but appears nontender, soft, bowel sounds present. GENITOURINARY: Within normal limits. BACK: Unremarkable. No CVA tenderness. EXTREMITIES: Upper extremities; passive movement of all joints are normal. Lower extremities, no edema. Good distal pulsation. SKIN: No skin rash. HEMATOLOGICAL: No lymphadenopathy. PSYCHIATRIC: Unable to assess at this point. NEUROLOGIC: Unable to assess at this point. SIGNIFICANT LABORATORY DATA: EKG showing normal sinus rhythm, left atrial enlargement. Chest x-ray based on my review, no acute cardiopulmonary process. CBC; WBC 12.0, hemoglobin 11.7, platelets 232, with left shift. VBG; pH 7.44, bicarb 27.1, CO2 39.7, O2 41.6. BMP; sodium 136, potassium 4.7, BUN 44, creatinine 2.38, glucose 125, calcium 9.5. LFT; AST 18, ALT 10, alkaline phosphatase 86, albumin 3.5. Urinalysis consistent with UTI. ASSESSMENT AND PLAN: 1. Acute septic shock with severe sepsis with acute organ dysfunction. The patient is hypotensive. Despite IV fluid, the patient's blood pressure runs low. She required central line and Levophed drip is planned. The patient will be given IV fluid as well and she will be started on broad-spectrum antibiotic therapy. Based on previous culture result, we will start Rocephin and levofloxacin for now. 2. Urinary tract infection with sepsis and septic shock. Continue Rocephin and Levaquin and follow up on culture result. 3. Acute kidney failure. The patient will be given IV fluid, likely due to sepsis. We will repeat labs tomorrow. 4. Acute metabolic encephalopathy, likely due to underlying sepsis as well as acute kidney failure. 5. Advanced Alzheimer dementia. Supportive care. 6. History of deep vein thrombosis and pulmonary embolism, on chronic anticoagulation. 7. Anxiety and depression. Continue BuSpar as per home dosage. 8. Recurrent urinary tract infection with urge incontinence. Continue mirabegron. 9. Allergic rhinitis. Continue azelastine and Farida as needed basis. 10. Gastroesophageal reflux disease. Continue Pepcid 20 mg IV daily. 11. Code status, DNR. The patient has ynn-by-nfnrrtwy DNR and confirmed with the son. 12. Disposition plan, based on clinical course. Expecting the patient's stay in hospital more than 2 midnights. Plan of care discussed with the family member. Job ID: [id number]
[2018-12-14] MEDS ORDERED: Loperamide HCl 2 MG CAP PO PRN (23:24)
[2018-12-14] MEDS ORDERED: Bisacodyl 5 MG TAB PO PRN (23:24)
[2018-12-14] MEDS ORDERED: Norepinephrine 8 MG/0.9% NS 250 ML IVPB PRN (23:24)
[2018-12-14] MEDS ORDERED: Senokot S 8.6-50 MG TAB PO PRN (23:24)
[2018-12-14] MEDS ORDERED: Calcium Carbonate 500 MG ChewTAB PO PRN (23:24)
[2018-12-14 23:43] VITALS: BMI 24.1
[2018-12-15] MEDS: Sodium Chloride 0.9% 1,000 ML IV SCH ×5 (00:23→18:07)
[2018-12-15] MEDS: Acetaminophen 325 MG TAB PO PRN ×2 (03:01→13:19)
[2018-12-15 04:42] LABS: #Lymphocytes 0.7 thou/uL (1.20-3.40); #Monocytes 1.1 thou/uL (0.11-0.59); #Neutrophils 10.3 thou/uL (1.40-6.50); %Basophils 0.2 % (0.0-1.0); %Lymphocytes 6.1 % (21.0-51.0); %Monocytes 8.7 % (0.0-10.0); Hemoglobin 10.1 g/dL (12.0-16.0); Mean Corpuscular HGB CONC 31.7 g/dL (32.0-36.0); Mean Corpuscular Hemoglobin 26.9 pg (27.0-31.0); Mean Corpuscular Volume 84.9 fL (78.0-98.0); Mean Platelet Volume 7.4 fL (7.4-10.4); Platelet Count 203 thou/uL (130-400); RBC Distribution Width 15.6 % (11.5-14.5); Red Blood Cell (RBC) Count 3.76 mill/uL (4.20-5.40); White Blood Cell (WBC) Count 12.1 thou/uL (4.8-10.8)
[2018-12-15 05:03] LABS: ALT (SGPT) 13 U/L (8-55); AST (SGOT) 23 U/L (5-34); Albumin 2.9 g/dL (3.4-4.8); Alkaline Phosphatase 80 U/L (40-150); Anion Gap 12 mmol/L (10-20); BUN (Urea Nitrogen) 40 mg/dL (9.8-20.1); Bilirubin, Total 0.5 mg/dL (0.2-1.2); Calc. Creatinine Clearance 18 mL/min (70-130); Calcium 8.1 mg/dL (7.8-10.44); Carbon Dioxide 23 mmol/L (23-31); Chloride 108 mmol/L (98-107); Estimated GFR-MDRD 20; Globulin 2.5 g/dL (2.4-3.5); Glucose 120 mg/dL (83-110); Potassium 4.5 mmol/L (3.5-5.1); Protein, Total 5.4 g/dL (6.0-8.3); Sodium 138 mmol/L (136-145)
[2018-12-15] MEDS ORDERED: Vancomycin HCl 1 GM in Premix Bag 1 BAG IVPB SCH (06:00)
[2018-12-15] MEDS: Saccharomyces boulardii 250 MG CAP PO SCH (07:59)
[2018-12-15] MEDS: Famotidine 20 MG TAB PO SCH (07:59)
[2018-12-15] MEDS: Famotidine/PF 20 mg/2ml Vial SLOW IVP SCH (08:26)
[2018-12-15] MEDS: Acetaminophen 650 MG Suppository PR PRN ×2 (08:26→20:36)
--- NOTE | 2018-12-15 10:48 | PDOC.PULCN ---
Pulmonology Consult: HPI - Date of Consult Date: 12/15/18 Time: 09:15 - Consult Details Reason for Consult: ICU admissions secondary to septic shock - History of Present Illness HPI: MICHAEL ABRAMS is a 88 year-old F This an 88 yo F who was found altered at her [facility] yesterday. She was sent to the ER where she was found to be in presumed septic shock secondary to UTI. She was given 3L of IVF and then started on levophed. She was given rocephin and vanc in th ED. Since admission to the ICU her BP has been stable on levophed and it has been able to be titrated down. She has become more aware , however her baseline mentation is unknown and she has a hx of dementia. Pulmonology Consult: ROS - Review of Systems ROS unobtainable: due to mental status All systems: reviewed and no additional remarkable complaints except as stated ( Complains of abdominal pain) Pulmonology Consult: [facility] Source: patient, other (Chart review) Past Medical History: Dementia, recurrent UTI, GERD - Social History Smoking Status: Never smoker Alcohol Use: none Drug Use History: none Living Situation: [facility] resident Pulmonology Consult: Meds - Medications MAR Reviewed: Yes Medications: Current Medications Acetaminophen (Tylenol) 650 mg PO Q4H PRN PRN Reason: Headache/Fever/Mild Pain (1-3) Last Admin: 12/15/18 03:01 Dose: 650 mg Acetaminophen (Tylenol) 650 mg NV Q4H PRN PRN Reason: Headache/Fever/Mild Pain (1-3) Last Admin: 12/15/18 08:26 Dose: 650 mg Bisacodyl (Dulcolax) 10 mg PO DAILYPRN PRN PRN Reason: Constipation Calcium Carbonate (Tums) 1,000 mg PO Q4H PRN PRN Reason: Heartburn or Indigestion Famotidine (Pepcid) 20 mg PO DAILY [facility] Last Admin: 12/15/18 07:59 Dose: Not Given Famotidine (Pepcid) 20 mg SLOW IVP DAILY [facility] Last Admin: 12/15/18 08:26 Dose: 20 mg Ceftriaxone Sodium 1 gm/ (Sodium Chloride) 100 mls @ 200 mls/hr IVPB Q24HR [facility] Norepinephrine Bitartrate (Levophed) 250 mls @ 0 mls/hr IVPB INF PRN; Protocol PRN Reason: hypotension Sodium Chloride (Normal Saline 0.9%) 1,000 mls @ 100 mls/hr IV .Q10H [facility] Last Admin: 12/15/18 08:26 Dose: 1,000 mls Loperamide HCl (Imodium) 2 mg PO PRN PRN PRN Reason: Diarrhea/Loose Stools Miscellaneous Medication (Pharmacy To Dose) 1 each IVPB PRN PRN PRN Reason: Pharmacy to dose Saccharomyces Boulardii (Florastor) 250 mg PO DAILY [facility] Last Admin: 12/15/18 07:59 Dose: Not Given Senna/Docusate Sodium (Senokot S) 2 tab PO BID PRN PRN Reason: Constipation - Allergies Allergies/Adverse Reactions: Allergies Allergy/AdvReac Type Severity Reaction Status Date / Time ciprofloxacin HCl Allergy Unknown Verified 03/11/18 21:37 [From Cipro] Pork/Porcine Containing Allergy Verified 03/11/18 21:37 Products tomato [Tomato] Allergy Verified 03/11/18 21:37 SILICONE Allergy Mild Uncoded 03/11/18 21:37 Pulmonology Consult: PE - Physical Exam Constitutional: NAD HEENT: moist MMs Neck: no JVD Cardiovascular: no significant murmur Respiratory: clear to auscultation bilaterally Gastrointestinal: no distention, positive bowel sounds Musculoskeletal: no edema Neurological: moves all 4 limbs Deviation from normal: A&O times 0 and tearful. At times she becomes more aware and can answer -: simple questions appropriately Pulmonology Consult: Results - Labs Result Diagrams: 12/16/18 05:30 12/16/18 05:30 - ABG Interpretation ABG Results: POC Bicarbonate Calc 27.1 mmol/L (22.0-28.0) 12/14/18 20:43 - Radiology Interpretation Chest x-ray Status: image reviewed by me (R IL CVC, no acute process), report reviewed by me Pulmonology Consult: A/P - Problem (1) Septic shock due to urinary tract infection Current Visit: Yes Code(s): A41.9 - SEPSIS, UNSPECIFIED ORGANISM; R65.21 - SEVERE SEPSIS WITH SEPTIC SHOCK; N39.0 - URINARY TRACT INFECTION, SITE NOT SPECIFIED Status: Acute (2) Acute kidney injury Current Visit: Yes Code(s): N17.9 - ACUTE KIDNEY FAILURE, UNSPECIFIED Status : Acute - Time Time: 50% of the time was spent in coordination of care (as documented) at patient's floor/unit and/or counseling patient. Time with Patient: greater than 50 minutes - Plan Plan: 1. Septic shock - patient has hx of recurrent UTI. Previous sensitivities have been sensitive to rocephin, thus will continue to treat with rocephin - Blood pressure is stable and improving. CVP is apprx 10, no need for increased for IVF - Urine and blood cultures are currently pending 2. DIDI - likely related to hypoperfusion. Urinary output is improving, monitor BMP in the am Addendum - Attending - Attending Attestation Date/Time: 12/15/18 1500 I personally evaluated the patient and discussed the management with Dr. Blake I agree with the History, Examination, Assessment and Plan documented above with any addition or exceptions noted below. 70 minutes have been devoted to this patient in various activities. I personally reviewed all imaging studies and laboratory data noted within this document. For fifty percent of this time, I was interacting with the patient at the bedside or coordinating care with the care team. For the remainder of the time I was immediately available to the patient in the hospital unit.
--- NOTE | 2018-12-15 16:18 | PDOC.PN ---
- Subjective Encounter Start Date: 12/15/18 Encounter Start Time: 16:15 Subjective: f/u for severe sepsis with shock due to presumed Proteus UTI on -: Rocephin IV. - Objective Resuscitation Status - Order Detail: 12/14/18 22:50 Resuscitation Status Routine Resuscitation Status: DNAR: NO Resuscitation Discussed with: discussed with son KLARISSA Reviewed: Yes Vital Signs & Weight: Vital Signs (12 hours) Temp Pulse Resp BP Pulse Ox 12/15/18 16:00 102 F H 12/15/18 08:00 99.6 F 99 12/15/18 07:00 99.6 F 67 22 H 110/53 L 99 Weight Admit Weight 145 lb 4.554 oz Weight 145 lb 4.554 oz Most Recent Monitor Data Heart Rate from ECG 78 NIBP 89/41 NIBP BP-Mean 57 Respiration from ECG 15 SpO2 88 I&O: 12/14/18 12/15/18 12/16/18 06:59 06:59 06:59 Intake Total 751.1 50 Output Total 420 335 Balance 331.1 -285 Result Diagrams: 12/15/18 04:32 12/15/18 04:32 Additional Labs: Microbiology 12/14/18 20:41 Venous blood - Right Arm Blood Culture - Preliminary Proteus species 12/14/18 20:41 Venous blood - Left Hand Blood Culture - Preliminary Specimen has been received and culture in progress. No Growth to date. 12/14/18 20:40 Urine rodriguez catheter Urine Culture - Preliminary Presumptive Proteus mirabilis Laboratory Tests 12/14/18 12/14/18 12/15/18 20:35 20:41 04:32 WBC 12.0 H Neutrophils % 80.4 H Creatinine 2.38 H 2.30 H 12/15/18 04:32 WBC Neutrophils % 85.0 H Creatinine Radiology Reviewed by me: Yes (PCXR - no acute process) EKG Reviewed by me: Yes (Tele - SR) Phys Exam - Physical Examination Constitutional: NAD alert, responsive HEENT: PERRLA, sclera anicteric, oral pharynx no lesions Neck: no nodes, no JVD, supple, full ROM Respiratory: no wheezing, no rales, no rhonchi, clear to auscultation bilateral S1, S2 Cardiovascular: RRR, no significant murmur, no rub, gallop Gastrointestinal: soft, non-tender, no distention, positive bowel sounds Musculoskeletal: no edema, pulses present Neurological: normal sensation, moves all 4 limbs A x O x 1 Skin: normal turgor, cap refill <2 seconds Deviation from normal: Rodriguez with turbid, yane urine Dx/Plan (1) Septic shock due to urinary tract infection Code(s): A41.9 - SEPSIS, UNSPECIFIED ORGANISM; R65.21 - SEVERE SEPSIS WITH SEPTIC SHOCK; N39.0 - URINARY TRACT INFECTION, SITE NOT SPECIFIED Status: Acute Comment: Proteus spp on urine/blood cx, continue Rocephin 2gm IV daily, await final sensitivities, off Levophed (2) Encephalopathy acute Code(s): G93.40 - ENCEPHALOPATHY, UNSPECIFIED Status: Acute Comment: Metabolic in nature due to #1, supportive mgmt (3) Acute kidney injury Code(s): N17.9 - ACUTE KIDNEY FAILURE, UNSPECIFIED Status: Acute Comment: Continue IVF's, avoid nephrotoxic meds and limit contrast exposure (4) UTI (urinary tract infection) Status: Acute Comment: Proteus spp, await final sensitivities, continue Rocephin (5) Alzheimer's dementia Code(s): G30.9 - ALZHEIMER'S DISEASE, UNSPECIFIED; F02.80 - DEMENTIA IN OTH DISEASES CLASSD ELSWHR W/O BEHAVRL DISTURB Status: Chronic Comment: Advanced dementia, supportive mgmt - Plan continue antibiotics, social work therapist, DVT proph w/SCDs Stable currently -: Continue Rocephin 2gm IV daily -: Await final Ucx sensitivities -: Hold all BP meds -: AM lab: BMP, CBC * .
[2018-12-15] MEDS: Melatonin 3 MG TAB PO SCH (19:50)
[2018-12-15] MEDS: Apixaban 5 MG TAB PO SCH (19:50)
[2018-12-15] MEDS: Gabapentin 300 MG CAP PO SCH (19:50)
[2018-12-15] MEDS ORDERED: cefTRIAXone\\ROCEPHIN 1 GM in Sodium Chloride 0.9% 100 ML IVPB SCH (21:00)
[2018-12-15] MEDS ORDERED: cefTRIAXone\\ROCEPHIN 2 GM in Sodium Chloride 0.9% 100 ML IVPB SCH ×2 (21:00)
[2018-12-16] MEDS: Sodium Chloride 0.9% 1,000 ML IV SCH (05:22)
[2018-12-16 05:53] LABS: Band 12 % (5-11); Hemoglobin 8.9 g/dL (12.0-16.0); Lymphocytes 15 % (21-51); MDiff Complete? YES; Mean Corpuscular HGB CONC 31.1 g/dL (32.0-36.0); Mean Corpuscular Hemoglobin 26.5 pg (27.0-31.0); Mean Corpuscular Volume 85.3 fL (78.0-98.0); Mean Platelet Volume 8.4 fL (7.4-10.4); Monocytes 3 % (0-10); Neutrophil 70 % (42-75); Platelet Count 148 thou/uL (130-400); Platelet Morphology Comment Appears Adequate; RBC Distribution Width 15.9 % (11.5-14.5); Red Blood Cell (RBC) Count 3.37 mill/uL (4.20-5.40); White Blood Cell (WBC) Count 7.6 thou/uL (4.8-10.8)
[2018-12-16 06:04] LABS: Anion Gap 10 mmol/L (10-20); BUN (Urea Nitrogen) 39 mg/dL (9.8-20.1); Calc. Creatinine Clearance 19 mL/min (70-130); Calcium 8.1 mg/dL (7.8-10.44); Carbon Dioxide 21 mmol/L (23-31); Chloride 114 mmol/L (98-107); Estimated GFR-MDRD 21; Glucose 106 mg/dL (83-110); Potassium 3.9 mmol/L (3.5-5.1); Sodium 141 mmol/L (136-145)
[2018-12-16] MEDS: Gabapentin 300 MG CAP PO SCH ×2 (07:54→21:59)
[2018-12-16] MEDS: Apixaban 5 MG TAB PO SCH ×2 (07:55→21:59)
[2018-12-16] MEDS: Saccharomyces boulardii 250 MG CAP PO SCH (07:55)
[2018-12-16] MEDS: Escitalopram Oxalate 10 mg Tablet PO SCH (07:55)
[2018-12-16] MEDS: Famotidine 20 MG TAB PO SCH (07:55)
[2018-12-16] MEDS: Famotidine/PF 20 mg/2ml Vial SLOW IVP SCH (07:56)
--- NOTE | 2018-12-16 09:31 | CT ---
CT ABDOMEN AND PELVIS WITHOUT CONTRAST: HISTORY: UTI, bacteremia. FINDINGS: Comparison is made with the contrast-enhanced exam of 09/08/2018. Absence of oral and IV contrast reduce the sensitivity of the exam, particularly for the evaluation o f solid organs involved. There are small bilateral pleural effusions with adjacent infiltrate/atelectatic changes. No calcifi ed gallstones are seen. No free air is noted. There is a small amount of free fluid in the pelvis. There are vascular calcifications without evidence of aneurysmal dilatation of the abdominal aorta. There is fecal material in the colon and rectum. There are multiple calculi in the left kidney. There is left-sided hydronephrosis secondary to a 9 m m left UPJ calculus. No calculi are seen in the right kidney, right ureter, or the urinary bladder. There is a Walton catheter and air in the urinary bladder. There are degenerative changes in the spi ne. There are old compression fractures in the spine. The cystic mass in the right adnexa seen on t he previous exam currently measures 2.5 cm. IMPRESSION: 1. Small bilateral pleural effusions with adjacent infiltrate/atelectatic changes. 2. Left renal calculi. 3. Obstructing 9 mm left ureteropelvic junction calculus. 4. Constipation. 5. A small amount of free fluid in the pelvis. 6. A 2.5 cm right adnexal cystic mass. POS: OFF
[2018-12-16] MEDS: Acetaminophen 325 MG TAB PO PRN (12:08)
--- NOTE | 2018-12-16 14:33 | PRG ---
DATE OF SERVICE: 12/16/2018 SERVICE: Pulmonary Medicine. INTERVAL HISTORY: The patient is doing really well from respiratory standpoint. She is on room air. She is breathing comfortably and in no distress. There has been no interval change to her condition overnight. Her signs of end-organ failure are improving. She really cannot provide much in the way of additional history. PHYSICAL EXAMINATION: VITAL SIGNS: Febrile with a T-max of 101.7, though her temperature spikes are improving. Pulse 75, blood pressure 143/89, respirations 18, and saturation 93 % on 3 L nasal cannula. GENERAL: The patient is awake and alert, in no apparent distress. LUNGS: Decent air entry. There are some dependent crackles present. No rhonchi or wheezing appreciated. HEART: Normal rate and regular. ABDOMEN: Soft, nontender, and nondistended. Bowel sounds are positive. MUSCULOSKELETAL: No cyanosis or clubbing. There is no pitting in the bilateral lower extremities. NEUROLOGIC: Grossly nonfocal. LABORATORY DATA: WBC 7.6, hemoglobin 8.9, platelets 148,000. Band count is 12 % on top of 70% neutrophils. Creatinine 2.20 and gently downtrending, BUN 39. Basic metabolic profile is otherwise unremarkable. Urinalysis is positive for pyuria. Blood cultures growing Proteus species. Urine culture is also growing Proteus, which is sensitive to gentamicin, meropenem, and Zosyn. IMAGING STUDIES: CT of the abdomen and pelvis demonstrates obstructing 9 mm left ureteropelvic junction calculus. There is also evidence of constipation. Small bilateral effusions are noted. ASSESSMENT: 1. Septic shock, resolved. 2. Bacteremia secondary to proteus. 3. Obstructing left nephrolithiasis. 4. Acute kidney injury, improving. 5. Dementia, advanced. DISCUSSION AND PLAN: Urology consultation will be placed. At this point, the patient has no further requirements for inpatient Pulmonary or Critical Care opinion. We will watch her urine output very closely. 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 If she develops increasing respiratory failure, if her blood pressure and vitals tolerate it, a dose of Lasix should be considered. Job ID: [id number] MTDD
--- NOTE | 2018-12-16 16:16 | PDOC.PN ---
- Subjective Encounter Start Date: 12/16/18 Encounter Start Time: 11:15 Subjective: awake but not oriented -: not in distress - Objective Resuscitation Status - Order Detail: 12/14/18 22:50 Resuscitation Status Routine Resuscitation Status: DNAR: NO Resuscitation Discussed with: discussed with son KLARISSA Reviewed: Yes Vital Signs & Weight: Vital Signs (12 hours) Temp Pulse Resp BP BP Pulse Ox 12/16/18 12:03 101.7 F H 75 18 143/89 H 93 L 12/16/18 08:00 96 12/16/18 07:49 99.6 F 72 16 111/74 96 12/16/18 05:00 97.5 F L 71 18 110/64 97 Weight Admit Weight 145 lb 4.554 oz Weight 145 lb 4.554 oz Most Recent Monitor Data Heart Rate from ECG 78 NIBP 89/41 NIBP BP-Mean 57 Respiration from ECG 15 SpO2 88 I&O: 12/15/18 12/16/18 12/17/18 06:59 06:59 06:59 Intake Total 751.1 2250 Output Total 420 1020 Balance 331.1 1230 Result Diagrams: 12/16/18 05:30 12/16/18 05:30 Phys Exam - Physical Examination HEENT: PERRLA dry mucosa Neck: no JVD, supple Respiratory: no wheezing, no rales Cardiovascular: RRR, no significant murmur Gastrointestinal: soft, non-tender, positive bowel sounds Musculoskeletal: no edema, pulses present Neurological: non-focal, moves all 4 limbs Dx/Plan (1) Nephrolithiasis Status: Acute Comment: left 9mm ureteropelvic junction stone with obstruction (2) proteus bacteremia Status: Acute (3) Septic shock due to urinary tract infection Code(s): A41.9 - SEPSIS, UNSPECIFIED ORGANISM; R65.21 - SEVERE SEPSIS WITH SEPTIC SHOCK; N39.0 - URINARY TRACT INFECTION, SITE NOT SPECIFIED Status: Resolved (4) Acute kidney injury Code(s): N17.9 - ACUTE KIDNEY FAILURE, UNSPECIFIED Status: Acute Comment: Continue IVF's, avoid nephrotoxic meds and limit contrast exposure (5) Bronchitis Code(s): J40 - BRONCHITIS, NOT SPECIFIED ACUTE OR CHRONIC Status: Acute Comment: resolving (6) Encephalopathy acute Code(s): G93.40 - ENCEPHALOPATHY, UNSPECIFIED Status: Acute Comment: Metabolic (7) UTI (urinary tract infection) Status: Acute Qualifiers: Urinary tract infection type: acute cystitis Hematuria presence: without hematuria Qualified Code(s): N30.00 - Acute cystitis without hematuria Comment: Proteus spp (8) Alzheimer's dementia Code(s): G30.9 - ALZHEIMER'S DISEASE, UNSPECIFIED; F02.80 - DEMENTIA IN OTH DISEASES CLASSD ELSWHR W/O BEHAVRL DISTURB Status: Chronic Comment: Advanced dementia, supportive mgmt (9) Anemia, normocytic normochromic Code(s): D64.9 - ANEMIA, UNSPECIFIED Status: Chronic (10) Anxiety and depression Code(s): F41.9 - ANXIETY DISORDER, UNSPECIFIED; F32.9 - MAJOR DEPRESSIVE DISORDER, SINGLE EPISODE, UNSPECIFIED Status: Chronic (11) GERD (gastroesophageal reflux disease) Code(s): K21.9 - GASTRO-ESOPHAGEAL REFLUX DISEASE WITHOUT ESOPHAGITIS Status: Chronic Qualifiers: Esophagitis presence: without esophagitis Qualified Code(s): K21.9 - Gastro -esophageal reflux disease without esophagitis - Plan d/w son Mr.Biermann Asencio and gave an update -: d/w and , family to decide further course of action -: is on meropenem -: pt likely has advance dementia, has poor oral intake -: will confirm with CM if she was under hospice/palliative care at [facility] * . continue eliquis, gabapentin, lexapro and myrbetriq. Creatinine around 2 Review of Systems - Medications/Allergies Allergies/Adverse Reactions: Allergies Allergy/AdvReac Type Severity Reaction Status Date / Time ciprofloxacin HCl Allergy Unknown Verified 03/11/18 21:37 [From Cipro] Pork/Porcine Containing Allergy Verified 03/11/18 21:37 Products tomato [Tomato] Allergy Verified 03/11/18 21:37 SILICONE Allergy Mild Uncoded 03/11/18 21:37 Medications: Current Medications Acetaminophen (Tylenol) 650 mg PO Q4H PRN PRN Reason: Headache/Fever/Mild Pain (1-3) Last Admin: 12/16/18 12:08 Dose: 650 mg Acetaminophen (Tylenol) 650 mg [place] Q4H PRN PRN Reason: Headache/Fever/Mild Pain (1-3) Last Admin: 12/15/18 20:36 Dose: 650 mg Apixaban (Eliquis) 5 mg PO BID [facility] Last Admin: 12/16/18 07:55 Dose: 5 mg Bisacodyl (Dulcolax) 10 mg PO DAILYPRN PRN PRN Reason: Constipation Calcium Carbonate (Tums) 1,000 mg PO Q4H PRN PRN Reason: Heartburn or Indigestion Escitalopram Oxalate (Lexapro) 10 mg PO DAILY [facility] Last Admin: 12/16/18 07:55 Dose: 10 mg Famotidine (Pepcid) 20 mg PO DAILY [facility] Last Admin: 12/16/18 07:55 Dose: 20 mg Famotidine (Pepcid) 20 mg SLOW IVP DAILY [facility] Last Admin: 12/16/18 07:56 Dose: Not Given Gabapentin (Neurontin) 300 mg PO BID [facility] Last Admin: 12/16/18 07:54 Dose: 300 mg Sodium Chloride (1/2 Normal Saline) 1,000 mls @ 30 mls/hr IV .Q24H [facility] Meropenem 1 gm/ Sodium (Chloride) 100 mls @ 200 mls/hr IVPB Q12HR [facility] Loperamide HCl (Imodium) 2 mg PO PRN PRN PRN Reason: Diarrhea/Loose Stools Melatonin (Melatonin) 4.5 mg PO HS [facility] Last Admin: 12/15/18 19:50 Dose: 4.5 mg Mirabegron (Myrbetriq Er) 25 mg PO DAILY [facility] Last Admin: 12/16/18 07:54 Dose: 25 mg Saccharomyces Boulardii (Florastor) 250 mg PO DAILY [facility] Last Admin: 12/16/18 07:55 Dose: 250 mg Senna/Docusate Sodium (Senokot S) 2 tab PO BID PRN PRN Reason: Constipation
[2018-12-16] MEDS: Sodium Chloride 0.45% 1,000 ML IV SCH ×2 (16:58→17:23)
[2018-12-16] MEDS: Acetaminophen 650 MG Suppository PR PRN (17:12)
[2018-12-16] MEDS ORDERED: Meropenem 1 GM in Sodium Chloride 0.9% 100 ML IVPB SCH ×2 (21:00→22:00)
--- NOTE | 2018-12-16 21:53 | CON ---
DATE OF CONSULTATION: 12/16/2018 REASON FOR CONSULTATION: Urinary tract infection with hydronephrosis and obstruction. HISTORY OF PRESENT ILLNESS: An 88-year-old patient with history of autoimmune hepatitis, on low-dose prednisone; previous episodes of cystitis; and deep vein thrombosis, who lives in a senior living in the area, and was found lethargic and hypotensive with fever. On arrival, BP was 85/35, pulse 75, respiratory rate 24, temperature 102, O2 saturation 92%. Did not follow commands. Neck was supple. Lungs clear. Heart exam, S1, S2 with regular rate. Abdomen is not tender. The initial impression was sepsis, probably from urinary tract infection associated with dementia, among other things. Pulmonary consultation was placed and an abdomen/pelvis CT scan was just completed this morning and it showed small bilateral pleural effusions and a left UPJ calculus which measures 9 mm and is obstructing the left kidney with left-sided hydronephrosis. There are multiple calculi in the left kidney as well. Microbiology thus far has yielded Proteus both in 2 sets of blood cultures and the urine culture, the organism has quite a few areas of resistance and is susceptible to aminoglycosides, meropenem, Zosyn, and Bactrim. Currently, Ms. Vaz is awake. She could not tell me where she was or the date. She did recognize her friend in the room with her. She had a hard time following commands and pretty much the only thing she obeyed properly was when I asked her to open her mouth; everything else, she could not follow much my commands. The other elements of review of systems have limited accuracy. According to the nurse, she has had no diarrhea. She has an indwelling Walton catheter. PAST MEDICAL HISTORY: Includes GERD, dementia, DVT, pulmonary embolism, history of nephrolithiasis, recurrent UTIs, skin cancer. PAST SURGICAL HISTORY: Appendectomy, hysterectomy, tonsillectomy. ALLERGIES: CIPRO, PORK, SILICON, TOMATOES. SOCIAL HISTORY: [facility]. Never smoker. She has a DNR order for out of hospital cardiac arrest. FAMILY HISTORY: Noncontributory. CURRENT MEDICATIONS: 1. Tylenol. 2. Eliquis. 3. Dulcolax. 4. Tums. 5. Lexapro. 6. Pepcid. 7. Neurontin. 8. Melatonin. 9. Meropenem. 10. Myrbetriq. 11. Florastor. PHYSICAL EXAMINATION: VITAL SIGNS: Temperature max 103, she is now 101.7; BP 140/80; pulse 75; respirations 18; O2 saturation 93% to 96%. SKIN: With no areas of skin breakdown. The patient has a peripheral IV access and a Walton catheter. No lymphadenopathy. HEENT: Ocular movements are conjugate, although she has a hard time in opening her eyes. Pupils are about 2 mm. Oral cavity with few remaining teeth in place with quite a bit of decay. Oral mucosa is dry. NECK: No thyromegaly or jugular vein distention. CHEST: Lung sounds are symmetric. Without crackles or wheezing. HEART: S1, S2. Regular rate. ABDOMEN: Soft, not distended or tender. No bladder distention noted. No organomegaly or ascites. EXTREMITIES: She has stiffness in both upper extremities and both lower extremities. The plantar responses are flexor. NEUROLOGIC: She is awake. She has a hard time establishing eye contact. She has diffuse rigors and stiffness, probably from the temperature elevation and rigors. LABORATORY DATA: White cell count was 12,000, now is 7.6; hemoglobin 8.9; platelets 148 with 12% bands. PH 7.44, pCO2 of 39, this is venous gas. Sodium 136 with a creatinine 2.38 and now 2.2, calcium 9.5. Transaminases normal. Albumin 2.9. Urinalysis with greater than 50 wbc's and greater than 50 rbc's. Microbiology has been discussed as well as CT scan. ASSESSMENT: 1. Dementia. 2. Prior deep venous thrombosis and pulmonary embolism, on Eliquis. 3. History of autoimmune hepatitis, on low-dose prednisone. 4. Altered mental status with sepsis and abnormal urinalysis. 5. Bacteremia with positive urine culture with the same organism. 6. Left ureterovesical junction obstruction due to stone. DISCUSSION: The patient obviously has obstructive pyelonephritis with bacteremia. The antimicrobial is adequate for management of this syndrome, but it will be smith to relieve the obstruction with a stent. Urology has been consulted. Eventual removal of stone when she stabilizes. The stones in the left kidney cortex maybe colonized by the same organism, which will place her at risk for recurrences. Job ID: [id number]
[2018-12-16] MEDS: MEROPENEM 1 GM/50 ML 1 GM in Premix Bag 1 BAG IVPB SCH (21:56)
[2018-12-16] MEDS: Melatonin 3 MG TAB PO SCH (21:59)
[2018-12-17] MEDS: Escitalopram Oxalate 10 mg Tablet PO SCH (08:58)
[2018-12-17] MEDS: Saccharomyces boulardii 250 MG CAP PO SCH (08:58)
[2018-12-17] MEDS: Gabapentin 300 MG CAP PO SCH ×2 (08:58→19:50)
[2018-12-17] MEDS: Famotidine 20 MG TAB PO SCH (08:58)
[2018-12-17] MEDS: Apixaban 5 MG TAB PO SCH ×2 (08:58→19:49)
[2018-12-17] MEDS: Famotidine/PF 20 mg/2ml Vial SLOW IVP SCH (09:00)
[2018-12-17] MEDS: MEROPENEM 1 GM/50 ML 1 GM in Premix Bag 1 BAG IVPB SCH ×2 (09:02→19:51)
[2018-12-17] MEDS: Acetaminophen 650 MG Suppository PR PRN (09:10)
[2018-12-17 11:53] VITALS: BP 132/74; TEMP 99.8
[2018-12-17] MEDS ORDERED: Lidocaine 5% Patch TD SCH (14:00)
[2018-12-17] MEDS: Morphine 2 MG/ML SYRINGE SLOW IVP PRN ×2 (14:17→19:44)
--- NOTE | 2018-12-17 14:53 | PDOC.PN ---
- Subjective Encounter Start Date: 12/17/18 Encounter Start Time: 07:30 Subjective: awake, not in distress, no fever this am -: family friend at bedside - Objective Resuscitation Status - Order Detail: 12/14/18 22:50 Resuscitation Status Routine Resuscitation Status: DNAR: NO Resuscitation Discussed with: discussed with son KLARISSA Reviewed: Yes Vital Signs & Weight: Vital Signs (12 hours) Temp Pulse Resp BP Pulse Ox 12/17/18 11:45 99.8 F H 74 18 132/74 94 L 12/17/18 08:00 96 12/17/18 07:22 98.2 F 70 134/78 12/17/18 04:00 97.9 F Weight Admit Weight 145 lb 4.554 oz Weight 145 lb 4.554 oz Most Recent Monitor Data Heart Rate from ECG 78 NIBP 89/41 NIBP BP-Mean 57 Respiration from ECG 15 SpO2 88 I&O: 12/16/18 12/17/18 12/18/18 06:59 06:59 06:59 Intake Total 2250 Output Total 1020 450 Balance 1230 -450 Result Diagrams: 12/16/18 05:30 12/16/18 05:30 Phys Exam - Physical Examination HEENT: PERRLA, sclera anicteric Neck: no JVD, supple Respiratory: no wheezing, no rales Cardiovascular: RRR, no significant murmur Gastrointestinal: soft, no distention, positive bowel sounds Musculoskeletal: no edema, pulses present Neurological: non-focal, moves all 4 limbs alert and awake, not oriented Dx/Plan (1) Nephrolithiasis Status: Acute Comment: left 9mm ureteropelvic junction stone with obstruction (2) proteus bacteremia Status: Acute (3) Septic shock due to urinary tract infection Code(s): A41.9 - SEPSIS, UNSPECIFIED ORGANISM; R65.21 - SEVERE SEPSIS WITH SEPTIC SHOCK; N39.0 - URINARY TRACT INFECTION, SITE NOT SPECIFIED Status: Resolved (4) Acute kidney injury Code(s): N17.9 - ACUTE KIDNEY FAILURE, UNSPECIFIED Status: Acute Comment: Continue IVF's, avoid nephrotoxic meds and limit contrast exposure (5) Bronchitis Code(s): J40 - BRONCHITIS, NOT SPECIFIED ACUTE OR CHRONIC Status: Acute Comment: resolving (6) Encephalopathy acute Code(s): G93.40 - ENCEPHALOPATHY, UNSPECIFIED Status: Acute Comment: Metabolic (7) UTI (urinary tract infection) Status: Acute Qualifiers: Urinary tract infection type: acute cystitis Hematuria presence: without hematuria Qualified Code(s): N30.00 - Acute cystitis without hematuria Comment: Proteus spp (8) Alzheimer's dementia Code(s): G30.9 - ALZHEIMER'S DISEASE, UNSPECIFIED; F02.80 - DEMENTIA IN OTH DISEASES CLASSD ELSWHR W/O BEHAVRL DISTURB Status: Chronic Comment: Advanced dementia, supportive mgmt (9) Anemia, normocytic normochromic Code(s): D64.9 - ANEMIA, UNSPECIFIED Status: Chronic (10) Anxiety and depression Code(s): F41.9 - ANXIETY DISORDER, UNSPECIFIED; F32.9 - MAJOR DEPRESSIVE DISORDER, SINGLE EPISODE, UNSPECIFIED Status: Chronic (11) GERD (gastroesophageal reflux disease) Code(s): K21.9 - GASTRO-ESOPHAGEAL REFLUX DISEASE WITHOUT ESOPHAGITIS Status: Chronic Qualifiers: Esophagitis presence: without esophagitis Qualified Code(s): K21.9 - Gastro -esophageal reflux disease without esophagitis - Plan family have opted for hospice, await evaluation for dc plan -: no surgery per family advice -: morphine, lidocaine patch -: is on meropenem for now -: prognosis guarded * . is on eliquis, lexapro, gabapentin, myrbetriq. Review of Systems - Medications/Allergies Allergies/Adverse Reactions: Allergies Allergy/AdvReac Type Severity Reaction Status Date / Time ciprofloxacin HCl Allergy Unknown Verified 03/11/18 21:37 [From Cipro] Pork/Porcine Containing Allergy Verified 03/11/18 21:37 Products tomato [Tomato] Allergy Verified 03/11/18 21:37 SILICONE Allergy Mild Uncoded 03/11/18 21:37 Medications: Current Medications Acetaminophen (Tylenol) 650 mg PO Q4H PRN PRN Reason: Headache/Fever/Mild Pain (1-3) Last Admin: 12/16/18 12:08 Dose: 650 mg Acetaminophen (Tylenol) 650 mg [place] Q4H PRN PRN Reason: Headache/Fever/Mild Pain (1-3) Last Admin: 12/17/18 09:10 Dose: 650 mg Apixaban (Eliquis) 5 mg PO BID [facility] Last Admin: 12/17/18 08:58 Dose: Not Given Bisacodyl (Dulcolax) 10 mg PO DAILYPRN PRN PRN Reason: Constipation Calcium Carbonate (Tums) 1,000 mg PO Q4H PRN PRN Reason: Heartburn or Indigestion Escitalopram Oxalate (Lexapro) 10 mg PO DAILY [facility] Last Admin: 12/17/18 08:58 Dose: Not Given Famotidine (Pepcid) 20 mg PO DAILY [facility] Last Admin: 12/17/18 08:58 Dose: Not Given Famotidine (Pepcid) 20 mg SLOW IVP DAILY [facility] Last Admin: 12/17/18 09:00 Dose: 20 mg Gabapentin (Neurontin) 300 mg PO BID [facility] Last Admin: 12/17/18 08:58 Dose: Not Given Sodium Chloride (1/2 Normal Saline) 1,000 mls @ 30 mls/hr IV .Q24H [facility] Last Admin: 12/16/18 17:23 Dose: 1,000 mls Meropenem 1 gm/ Device 50 mls @ 200 mls/hr IVPB Q12HR [facility] Last Admin: 12/17/18 09:02 Dose: 50 mls Lidocaine (Lidoderm 5% Patch) 1 patch TD DAILY [facility] Lidocaine (Lidoderm 5% Patch) 1 patch TD 1400 [facility] Stop: 12/17/18 16:00 Last Admin: 12/17/18 14:23 Dose: 1 patch Loperamide HCl (Imodium) 2 mg PO PRN PRN PRN Reason: Diarrhea/Loose Stools Melatonin (Melatonin) 4.5 mg PO HS [facility] Last Admin: 12/16/18 21:59 Dose: Not Given Mirabegron (Myrbetriq Er) 25 mg PO DAILY [facility] Last Admin: 12/17/18 08:58 Dose: Not Given Miscellaneous Medication (Lidocaine Patch Removal) 0 each TOP 2100 [facility] Morphine Sulfate (Morphine) 2 mg SLOW IVP Q6H PRN PRN Reason: Moderate to Severe Pain (6-10) Last Admin: 12/17/18 14:17 Dose: 2 mg Saccharomyces Boulardii (Florastor) 250 mg PO DAILY [facility] Last Admin: 12/17/18 08:58 Dose: Not Given Senna/Docusate Sodium (Senokot S) 2 tab PO BID PRN PRN Reason: Constipation
[2018-12-17] MEDS: Sodium Chloride 0.45% 1,000 ML IV SCH (17:11)
[2018-12-17] MEDS: Melatonin 3 MG TAB PO SCH (19:51)
[2018-12-17] MEDS ORDERED: Lidocaine Patch Removal 1 EACH TOP SCH (21:00)
--- NOTE | 2018-12-17 21:42 | EKG ---
Test Reason : Blood Pressure : / mmHG Vent. Rate : 069 BPM Atrial Rate : 069 BPM P-R Int : 154 ms QRS Dur : 136 ms QT Int : 412 ms P-R-T Axes : 031 005 115 degrees QTc Int : 441 ms Normal sinus rhythm Left atrial enlargement Incomplete left bundle branch block Abnormal ECG Confirmed by SAGRARIO MADSEN, NEVIN Salguero ([id number]), fan mail editor LACI LOZANO ([id number]) on 12/17/2018 9:42:19 PM Referred By: Confirmed By:NEVIN ZABALA MD
[2018-12-18] MEDS ORDERED: Lidocaine 5% Patch TD SCH (09:00)
--- NOTE | 2018-12-18 18:06 | DIS ---
DATE OF ADMISSION: 12/14/2018 DATE OF DISCHARGE: 12/17/2018 DISCHARGE DISPOSITION: To inpatient hospice. PRIMARY DISCHARGE DIAGNOSES: 1. Sepsis. 2. Proteus bacteremia. 3. Nephrolithiasis with obstructive uropathy and pyelonephritis. 4. Septic shock on arrival, resolved. 5. Acute kidney injury. 6. Acute bronchitis. 7. Acute encephalopathy. SECONDARY DISCHARGE DIAGNOSES: 1. Dementia. 2. Chronic anemia. 3. Anxiety. 4. Depression. 5. Gastroesophageal reflux disease. 6. Chronic atrial fibrillation. PROCEDURES DONE DURING HOSPITALIZATION: Urine culture grew Proteus sensitive to amikacin, ampicillin, sulbactam, cefoxitin, gentamicin, meropenem, Zosyn, tobramycin, and Bactrim. Blood cultures x2 grew Proteus mirabilis with similar sensitivity profile. Has urine culture. Had a white count of 12 on the day of admission with discharge number of 7, H and H of 9 and 28, and platelet count 148 on the day of discharge. Initial BUN and creatinine were 44 and 2.3, discharge numbers of 39 and 2.2. Albumin is 2.9. INPATIENT CONSULT: 1. Dr. Shepherd for Pulmonary Critical Care. 2. Dr. Sauer for Infectious Disease. BRIEF COURSE DURING HOSPITALIZATION: The patient initially was sent from retirement for confusion, hypotension, lethargy, and being less responsive. She also had very high-grade fever of 102. On initial workup in the ER, the patient was found to have septic shock with acute organ dysfunction and urinary tract infection. She was on [employer] initially and admitted to ICU. She has had a CT stone protocol done, which showed obstructive uropathy with 9-mm left ureteropelvic junction calculus. She has had prior stones and has had difficult postoperative period during her prior hospitalization. The patient's urine and blood cultures grew Proteus mirabilis with similar sensitivities. Family did not want to pursue ureteral stenting and further lithotripsy in view of prior experience with postanesthesia/surgery difficulty in the past. In view of the patient's advanced age, dementia, and family not wanting any further procedures to relieve her obstruction with sepsis and Proteus bacteremia, a hospice evaluation was requested. She has been accepted to inpatient hospice by [facility]. A total of 35 minutes was spent on discharge plan. All through her stay, her son was given complete updates, Mr. Luis M Vaz. Please see a [id number] documentation for the day of discharge on [facility]. Her overall prognosis is very poor. Job ID: [id number]
== END 2018-12-17 20:48 | disposition hospice, inpatient (51) | DRG 871 ==
LOC: ERS 20:17 → CCU 22:42 → T4-A 12-15 17:30
PROVIDERS: ADMIT Hospitalist; ATTEND Hospitalist
DX: A41.59 Other Gram-negative sepsis (principal); R65.21 Severe sepsis with septic shock; G93.41 Metabolic encephalopathy; N17.9 Acute kidney failure, unspecified; N13.6 Pyonephrosis; N12 Tubulo-interstitial nephritis, not specified as acute or chronic; Z51.5 Encounter for palliative care; Z66 Do not resuscitate; K21.9 Gastro-esophageal reflux disease without esophagitis; F41.9 Anxiety disorder, unspecified; F32.9 Major depressive disorder, single episode, unspecified; G30.9 Alzheimer's disease, unspecified; F02.80 Dementia in other diseases classified elsewhere, unspecified severity, without behavioral disturbance, psychotic disturbance, mood disturbance, and anxiety; J30.9 Allergic rhinitis, unspecified; D64.9 Anemia, unspecified; J20.9 Acute bronchitis, unspecified; I48.2 Chronic atrial fibrillation; Z90.49 Acquired absence of other specified parts of digestive tract; Z90.710 Acquired absence of both cervix and uterus; Z85.828 Personal history of other malignant neoplasm of skin; Z91.018 Allergy to other foods; Z79.899 Other long term (current) drug therapy; Z90.89 Acquired absence of other organs; Z86.718 Personal history of other venous thrombosis and embolism; Z86.711 Personal history of pulmonary embolism; Z88.1 Allergy status to other antibiotic agents; Z79.01 Long term (current) use of anticoagulants
CPT/HCPCS: 36415; 71045; 74176; 80048; 80053; 81003; 81015; 82330; 82803; 83605; 85007; 85025; 85027; 87040; 87077; 87086; 87149; 87186; 93005; A4353; J0696; J2185; J2270; J2405; J3370; J3490; S0028